=== PATIENT | male | born 1985 | race Caucasian/White ===

== ENCOUNTER 2017-12-06 22:33 | Inpatient (IN) | payer OTHER, MEDICAID, SELFPAY ==
[2017-12-06 22:41] VITALS: BP 115/88; PULSE 98; RESP 18; TEMP 36.7; O2SAT 100
--- NOTE | 2017-12-06 22:41 | ED_ITS ---
HPI - Extremity Injury (Lower) General Chief Complaint: Extremity Problem,Nontraumatic Stated Complaint: Knee pain Time Seen by Provider: 12/06/17 22:41 Source: patient Mode of arrival: EMS Limitations: no limitations History of Present Illness HPI Narrative: Patient is a 32-year-old male here for evaluation of right knee pain and swelling. Patient states that it started shortly after waking up this morning is worsened throughout the day. States he has had this 1 time in the past however it went away on its own in a very short period of time and he never had it evaluated. Patient admits to IV drug use. He states the last time he injected himself was 4 hr prior to arrival here in the ER. He denied any trauma to his knee. No fevers. States that his knee is very painful to touch chin to move. Has not tried anything for prior to arrival. Related Data Home Medications Medication Instructions Recorded Confirmed No Known Home Medications 12/06/17 12/06/17 Allergies Allergy/AdvReac Type Severity Reaction Status Date / Time No Known Drug Allergies Allergy Verified 12/06/17 23:47 Review of Systems Constitutional Denies fever(s) and Denies headache(s) ENT Ears, Nose, Mouth, and Throat: Denies headache(s) Cardiovascular Denies chest pain and Denies dyspnea Respiratory Denies dyspnea Gastrointestinal Gastrointestinal: Denies abdominal pain, Denies nausea and Denies vomiting Musculoskeletal Denies myalgias, Reports arthralgias, Reports joint swelling, Reports limited range of motion and Denies muscle weakness Integumentary/Breasts Denies lesions and Denies rash Neurologic Denies headache(s) Hematologic/Lymphatic Denies easy bleeding and Denies easy bruising [facility] Medical History Drug abuse (Acute) Surgical History No pertinent past surgical history (Acute) Exam Initial Vital Signs Initial Vital Signs: Vital Signs Temperature 98.1 F 12/06/17 22:41 Pulse Rate 98 H 12/06/17 22:41 Respiratory Rate 18 12/06/17 22:41 Blood Pressure 115/88 12/06/17 22:41 Pulse Oximetry 100 12/06/17 22:41 Const General: cooperative, No comfortable (Uncomfortable appearing), well developed and well groomed Orientation: alert, awake and oriented x3 HENMT Head: normal to inspection and normocephalic Resp Effort & Inspection: normal respiratory effort Auscultation: clear to auscultation bilaterally Cardio Rate: regular rate Rhythm: regular rhythm Skin Rashes: no rashes Other: No redness around the right knee. Patient with multiple healing wounds in bilateral antecubital fossas with stitches from prior incision and drainage still in place. Neuro General: alert, awake and oriented x3 Sensory Exam: no sensory deficits noted Extrem General: capillary refill normal Right lower extremity: hip/thigh Details: normal to inspection, knee Details: tenderness, swelling and abnormal ROM Details: held in an abnormal fashion Details: in flexion, pain with active ROM during Details: in extension and in flexion, pain with passive ROM during Details: in extension and in flexion and unable to extend lower leg actively; no unusual warmth, lower leg Details: normal to inspection, ankle Details: normal to inspection and foot Details: normal capillary refill and normal to inspection Left lower extremity: normal to inspection Psych Appearance: grossly normal and well kempt Procedures Joint Aspiration Joint Asp./Inject. 1: Time Out Performed: Yes Side of body: right Joint Aspirated: knee Ultrasound Guidance: No Skin Prep: Povidone-Iodine1% Local Anesthetic: lidocaine 1% Amount of anesthesia used (mL): 5 Needle Size Used: 18G Fluid Obtained: turbid Total fluid obtained (mL): 90 Patient Tolerated Procedure: Well and No complications Complications: none Misc Procedure Name of Procedure: Removal of stitches Side (if applicable): left Location: Bilateral antecubital fossa Technique/Description of procedure performed: Removal of 2 stitches in the right AC, removal of 6 stitches the left AC Patient tolerated procedure: Well and No complications Complications: none Course Orders Ordered: ED Orders 12/06/17 22:42 XR knee RT 3V Stat 12/06/17 23:00 Basic Metabolic Panel Stat Blood Culture Stat C-Reactive Protein Quant Stat Complete Blood Count AUTO DIFF Stat Erythrocyte Sedimentation Rate Stat Lactate (Lactic Acid) Stat Procalcitonin Stat Uric Acid Stat 12/06/17 23:43 Body Fluid Culture Stat Cell Count w Diff Body Fluid Stat Crystals Body Fluid Stat 12/07/17 01:28 Consult to Orthopedic Surgery Routine Consult to Physician Routine Vancomycin HCl/Dextrose (Vancomycin) 1,000 mg in 200 mls @ 200 mls/hr IV NOW ONE Stop: 12/07/17 02:14 Ceftriaxone Sodium/Dextrose (Rocephin) 1 gm in 50 mls @ 100 mls/hr IV NOW ONE Stop: 12/07/17 01:44 Last Admin: 12/07/17 01:26 Dose: 100 mls/hr Sodium Chloride (Normal Saline 0.9%) 1,000 mls @ 125 mls/hr IV CONT JAYSON Morphine Sulfate (Morphine) 2 mg IV Q4HR PRN PRN Reason: Pain, Mild (1-3) Morphine Sulfate (Morphine) 4 mg IV NOW ONE Stop: 12/07/17 01:44 Ondansetron HCl (Zofran) 4 mg IV Q4HR PRN PRN Reason: Nausea And Vomiting Discontinued Medications Sodium Chloride (Normal Saline 0.9%) 1,000 mls @ 1,000 mls/hr IV BOLUS ONE Stop: 12/06/17 23:41 Last Admin: 12/06/17 23:49 Dose: 1,000 mls/hr Morphine Sulfate (Morphine) 4 mg IV NOW ONE Stop: 12/06/17 23:14 Last Admin: 12/06/17 23:48 Dose: 4 mg Vital Signs - 8 hr 12/06/17 22:41 12/07/17 00:48 Temperature 98.1 F Pulse Rate 98 H 92 H Respiratory Rate 18 16 Blood Pressure 115/88 Blood Pressure [Left Arm] 118/90 Pulse Oximetry 100 98 MDM - Extremity Injury (Lower) Lab Data Attestation: I reviewed the patient's lab results. Result diagrams: 12/06/17 23:00 12/06/17 23:00 Lab Results 12/06/17 12/06/17 12/06/17 Range/Units 23:00 23:00 23:00 WBC 11.8 H (4.5-11.0) X10^3/uL RBC 4.40 L (4.5-5.9) X10^6/uL Hgb 12.3 L (13.5-17.5) g/dL Hct 36.9 L (41-53) % MCV 83.9 (80-100) fL MCH 28.0 (26-34) PG MCHC 33.4 (30-36) % RDW 16.7 H (11.6-14.8) % Plt Count 338 (150-400) X10^3/uL Neut % (Auto) 75.8 H (50-75) % Lymph % (Auto) 9.9 L (25-40) % [place] % (Auto) 12.4 (3-14) % Eos % (Auto) 1.0 L (2-4) % Baso % (Auto) 0.9 (0-2) % Neut # (Auto) 9000 H (6898-7066) /uL ESR 48 H (0-15) MM/HR Sodium 139 (137-145) mmol/L Potassium 4.1 (3.4-5.1) mmol/L Chloride 98 (98-107) mmol/L Carbon Dioxide 30 (22-32) mmol/L BUN 19 (9-20) mg/dL Creatinine 0.90 (0.66-1.25) mg/dL Estimated GFR > 60.0 (>60) mL/min BUN/Creatinine Ratio 21.1 (6-22) Glucose 114 H (70-100) mg/dL Lactate (0.7-2.1) mmol/L Uric Acid (3.5-8.5) mg/dL Calcium 9.8 (8.4-10.2) mg/dL C-Reactive Protein (<1.0) mg/dL Procalcitonin 3.41 H (<0.5) ng/mL Fluid Color Fluid Appearance Fluid RBC /uL Fld Tot Nucleated Cell /uL Fluid Polynuclear WBCs % Fluid Mononuclear WBCs % Fluid Eosinophils Body Fluid Clot 12/06/17 12/06/17 12/06/17 Range/Units 23:00 23:00 23:00 WBC (4.5-11.0) X10^3/uL RBC (4.5-5.9) X10^6/uL Hgb (13.5-17.5) g/dL Hct (41-53) % MCV (80-100) fL MCH (26-34) PG MCHC (30-36) % RDW (11.6-14.8) % Plt Count (150-400) X10^3/uL Neut % (Auto) (50-75) % Lymph % (Auto) (25-40) % [place] % (Auto) (3-14) % Eos % (Auto) (2-4) % Baso % (Auto) (0-2) % Neut # (Auto) (9759-3004) /uL ESR (0-15) MM/HR Sodium (137-145) mmol/L Potassium (3.4-5.1) mmol/L Chloride (98-107) mmol/L Carbon Dioxide (22-32) mmol/L BUN (9-20) mg/dL Creatinine (0.66-1.25) mg/dL Estimated GFR (>60) mL/min BUN/Creatinine Ratio (6-22) Glucose (70-100) mg/dL Lactate 1.0 (0.7-2.1) mmol/L Uric Acid 6.8 (3.5-8.5) mg/dL Calcium (8.4-10.2) mg/dL C-Reactive Protein 7.0 H (<1.0) mg/dL Procalcitonin (<0.5) ng/mL Fluid Color Fluid Appearance Fluid RBC /uL Fld Tot Nucleated Cell /uL Fluid Polynuclear WBCs % Fluid Mononuclear WBCs % Fluid Eosinophils Body Fluid Clot 12/06/17 Range/Units 23:43 WBC (4.5-11.0) X10^3/uL RBC (4.5-5.9) X10^6/uL Hgb (13.5-17.5) g/dL Hct (41-53) % MCV (80-100) fL MCH (26-34) PG MCHC (30-36) % RDW (11.6-14.8) % Plt Count (150-400) X10^3/uL Neut % (Auto) (50-75) % Lymph % (Auto) (25-40) % [place] % (Auto) (3-14) % Eos % (Auto) (2-4) % Baso % (Auto) (0-2) % Neut # (Auto) (5737-9534) /uL ESR (0-15) MM/HR Sodium (137-145) mmol/L Potassium (3.4-5.1) mmol/L Chloride (98-107) mmol/L Carbon Dioxide (22-32) mmol/L BUN (9-20) mg/dL Creatinine (0.66-1.25) mg/dL Estimated GFR (>60) mL/min BUN/Creatinine Ratio (6-22) Glucose (70-100) mg/dL Lactate (0.7-2.1) mmol/L Uric Acid (3.5-8.5) mg/dL Calcium (8.4-10.2) mg/dL C-Reactive Protein (<1.0) mg/dL Procalcitonin (<0.5) ng/mL Fluid Color Light brown Fluid Appearance Turbid Fluid RBC 66969 /uL Fld Tot Nucleated Cell 351315 /uL Fluid Polynuclear WBCs 91 % Fluid Mononuclear WBCs 9 % Fluid Eosinophils Not Reportable Body Fluid Clot No clots present Imaging Data x-ray knee: Attestation: I personally reviewed and interpreted this imaging study as follows: My impression: No fractures, no dislocation, no acute pathology MDM Narrative Medical decision making narrative: Went over the risks and benefits of the knee aspiration with the patient to include risks of pain, damage to underlying structures and also the introduction of an infection in his knee. Patient expressed understanding and gave consent for performing the procedure. Patient elevated white count, elevated ESR, CRP, procalcitonin. Synovial fluid with greater than 120,000 white blood cells with poly predominance. Patient is afebrile. Was given multiple doses of pain medication. Rocephin and vancomycin started here in the emergency department to cover for septic arthritis. No fractures were noted on the x-ray. Discussed the case with Dr. Gagnon with Orthopedics who stated the patient could be admitted under the medicine service with IV antibiotics and they will see the patient tomorrow. Discussed the case with Dr. Bruno with Internal Medicine who accepts the patient. Discussed the plan for admission with the patient. He expressed understanding and agreement with plan. Blood culture, joint synovial fluid culture pending at the time of admission. Discharge Plan Departure Patient Disposition: Admitted as Observation Clinical Impression: Septic joint of right knee joint, Drug abuse, IV Admit Date/Time: 12/07/17 01:34 Admit Provider: Cy Bruno
--- NOTE | 2017-12-06 22:42 | DI.RAD.S_ITS ---
PROCEDURE: XR KNEE RT 3V INDICATIONS: pain and swelling TECHNIQUE: 3 views of the knee were acquired. COMPARISON: None. FINDINGS: Bones: No fractures or dislocations. No suspicious bony lesions. Soft tissues: Anterior soft tissue swelling and large joint effusion IMPRESSION: Anterior soft tissue swelling and large joint effusion. No fracture. If the patient's symptoms do not improve recommend further evaluation with noncontrast MRI. Dictated by: Farzad Cornell M.D. on 12/07/2017 at 7:33 Approved by: Farzad Cornell M.D. on 12/07/2017 at 7:34
[2017-12-06 23:23] LABS: Add Manual Diff / Slide Review NO; Basophils Percent Auto 0.9 % (0-2); Hematocrit 36.9 % (41-53); Hemoglobin 12.3 g/dL (13.5-17.5); Lymphocytes Percent Auto 9.9 % (25-40); Mean Corpuscular HGB Conc 33.4 % (30-36); Mean Corpuscular Volume 83.9 fL (80-100); Monocytes Percent Auto 12.4 % (3-14); Neutrophils Absolute Auto 9000 /uL (3000-5900); Neutrophils Percent Auto 75.8 % (50-75); Platelet Count 338 X10^3/uL (150-400); Red Cell Distribution Width 16.7 % (11.6-14.8); White Blood Cell Count 11.8 X10^3/uL (4.5-11.0)
--- NOTE | 2017-12-06 23:30 | PC.NURSE ---
rt knee swelling, hot to touch, no redness/wound/trauma, denies nausea/fever/chills, reports IVDA heroin last use approx 4 hours per pt distal cms intact
[2017-12-06 23:37] LABS: Uric Acid 6.8 mg/dL (3.5-8.5)
[2017-12-06 23:38] LABS: BUN Creatinine Ratio 21.1 (6-22); Blood Urea Nitrogen 19 mg/dL (9-20); Calcium 9.8 mg/dL (8.4-10.2); Carbon Dioxide 30 mmol/L (22-32); Chloride 98 mmol/L (98-107); Estimated Glomerular Filt Rate > 60.0 mL/min (>60); Glucose 114 mg/dL (70-100); HEMOLYSIS < 15 (0-50); Potassium 4.1 mmol/L (3.4-5.1); Sodium 139 mmol/L (137-145)
[2017-12-06 23:40] LABS: Erythrocyte Sedimentation Rate 48 MM/HR (0-15)
[2017-12-06] MEDS: MORPHINE 4 MG/ML INJ IV (23:48)
[2017-12-06] MEDS: SODIUM CHLORIDE 0.9% 1,000 ML 1000 ML IV (23:49)
[2017-12-06 23:51] LABS: Procalcitonin 3.41 ng/mL (<0.5)
[2017-12-07] VITALS (15 sets, daily range): BP systolic 115–145; BP diastolic 49–92; PULSE 62–92; RESP 14–73; TEMP 36.3–37.2; O2SAT 20–100; BMI 22.8
--- NOTE | 2017-12-07 | DI.ECHO.S_ITS ---
[place] [facility]---------+ [facility] +---------+ : : [address] : : : : [id number] : : : : Phone: [phone] Echocardiogram Report + + :Name: IFEOMA SON Study Date: 12/07/2017 Height: 70 in : :[facility] Exam Location: IS Weight: 158 lb : : Gender: Male BSA: 1.9 m2 : :: 1985 Age: 32 yrs BP: 130/74 mmHg: :Reason For Study: ENDOCARDITIS : :Ordering Physician: Jean : :Hospitalist Performed By: Kathryn Herrera : :Referring: BENNETT OLGUIN : + + Interpretation Summary Limited exam for endocarditis. Pt asked exam to be ended early. Only parasternal views were obtained. Pt had a difficult time holding still and was taking deep breaths throughout exam. The left ventricular ejection fraction is normal. There are no obvious focal wall motion abnormalities noted but poor endocardial definition reduces the sensitivity for the detection of such. There is trace mitral regurgitation. At least trace AI. Consider [place] if clinically indicated Procedure: A two-dimensional transthoracic echocardiogram with color flow and Doppler was performed in limited views only. The study quality was technically adequate. Comparison is made with the echocardiogram of 10/19/17. The patient was in normal sinus rhythm during the exam. Left Ventricle: The left ventricle is normal in size. There is normal left ventricular wall thickness. The left ventricular ejection fraction is normal. The ejection fraction is estimated to be 55-60%. There are no obvious focal wall motion abnormalities noted but poor endocardial definition reduces the sensitivity for the detection of such. Mitral Valve: The mitral valve leaflets appear mildly thickened, but open well. There is no vegetation seen on the mitral valve. There is trace mitral regurgitation. Aortic Valve: The aortic valve is normal in structure and function. There is no aortic valvular vegetation. At least trace AI. Tricuspid Valve: The tricuspid valve is not well visualized, but is grossly normal. No obvious vegetation. There is a trace or physiologic amount of tricuspid regurgitation. Right ventricular systolic pressure is estimated to be at least 14 mmHg plus the clinically estimated CVP which cannot be estimated on this exam. Pulmonic Valve: The pulmonic valve is not well visualized. MMode/2D Measurements & Calculations LVIDd: 4.5 cm LVIDs: 3.0 cm FS: 33.1 % IVSd: 0.64 cm LVPWd: 0.69 cm LV taylor. diameter/BSA (cm/m^2): 2.4 LV sys. diameter/BSA (cm/m^2): 1.6 Doppler Measurements & Calculations TR max paz: 187.2 cm/sec TR max P.0 mmHg Reading Physician:03:34 PM
[2017-12-07 00:10] LABS: Body Fluid Red Blood Cells 10346 /uL; Body Fluid Tot Nucleated Cells 121142 /uL
[2017-12-07 00:12] LABS: Body Fluid Appearance TURBID; Body Fluid Clotted? NO CLOTS PRESENT; Body Fluid Color LIGHT BROWN
[2017-12-07 01:06] LABS: Mononuclear WBC Body Fluid 9 %; Polynuclear WBC Body Fluid 91 %
[2017-12-07] MEDS: CEFTRIAXONE 1 GM/50 ML FROZ.PIGGY IV (01:26)
[2017-12-07] MEDS: MORPHINE 4 MG/ML INJ IV ×5 (01:46→21:46)
[2017-12-07] MEDS: SODIUM CHLORIDE 0.9% 1,000 ML 125 ML IV ×2 (01:47→10:58)
[2017-12-07] MEDS: VANCOMYCIN 1,000 MG/200 ML FROZ.PIGGY 200 MG IV ×4 (01:59→20:58)
--- NOTE | 2017-12-07 02:45 | PC.NURSE ---
Admit Note: Pt arrived to 229 at 0215 via stretcher, he was able to shift onto the bed with 1pa to support the effected knee. Pt reported pain at 8/10, iv fluids running as ordered. Pt drowsy during assessment and had to be prompted frequently to answer questions. Knee is elevated on pillow, band aid is on the knee at the aspiration site. 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 Pt stated that he smokes 4 cigarettes per day and that he lives alone. Pt was oriented to room, call light and bed controls but may need reinforcement due to drowsiness.
[2017-12-07] MEDS: MORPHINE 2 MG/ML INJ IV (06:06)
--- NOTE | 2017-12-07 08:26 | PM.HP.1 ---
History of Present Illness Date Patient Seen: 12/07/17 Chief complaint: Knee pain Narrative: The patient is a 32-year-old male with a history of IV substance abuse. The patient admits to using up to a g a day of heroin. Yesterday 1 day prior to admission he developed knee pain. The knee pain was constant, sharp, nonradiating. He had associated swelling of the right knee. The knee hurt with ambulation. He denies any associated fever or chills. He had no nausea or vomiting. He has had prior injury to the knee. Patient has had no prior history of septic joints or infections related to his IV substance abuse. The patient was seen and evaluated in the emergency department. He underwent a aspiration of the knee. The knee aspirate was significant for over 121,000 white cells, 91% neutrophils. Patient was placed on IV ceftriaxone and IV vancomycin. He was given IV hydration. He was admitted to the hospital for further evaluation. The patient denies any shortness of breath chest pain or palpitations. He has no nausea vomiting or diarrhea. No dysuria hematuria or pyuria. He has no headache blurred vision cough. He has had no change in his weight. The patient has no hematemesis or melena or bright red blood per rectum. All other review of systems is negative. Patient is being admitted to the hospital at this time for possible septic arthritis of the right knee. Patient History Medical History Drug abuse (Acute) Opioid abuse (Acute) Opioid abuse with intoxication delirium (Acute) Opioid dependence with withdrawal (Acute) Opioid use with withdrawal (Acute) Surgical History No pertinent past surgical history (Acute) Family & Social History Family History: Reviewed 12/07/17 by Tamika Porter MD Social History: household members none Prior Living Arrangements Apartment/Condo Safety & Behavioral: Feels Safe in Current Yes Environment Been Physically Hurt or No Threatened By a Person Suicidal Ideation Description None Tobacco & Substance use: Tobacco type cigarettes Smoking Status Current every day smoker alcohol intake never Substance Use Type heroin Meds Home Medications Medication Instructions Recorded Confirmed Type No Known Home Medications 12/06/17 12/06/17 History Allergies Allergy/AdvReac Type Severity Reaction Status Date / Time No Known Drug Allergies Allergy Verified 12/06/17 23:47 Review of Systems Review of Systems All systems reviewed & are unremarkable except as noted in HPI and below Exam Vital Signs (past 8 hours): - 12/07/17 00:48 12/07/17 02:25 12/07/17 06:27 Temperature 99.0 F 98.3 F Pulse Rate 92 H 79 77 Respiratory Rate 16 18 18 Blood Pressure 130/74 139/87 Blood Pressure [Left Arm] 118/90 Pulse Oximetry 98 100 100 Oxygen Delivery Method Room Air Narrative Exam Narrative: Uncomfortable white male moaning in bed [facility] Head: normal to inspection, normocephalic and atraumatic Ears: hearing grossly normal bilaterally Nose: external nose normal Face and sinus: normal facial exam Mouth: oral mucosae normal Eyes General: appearance normal, both eyes and all related structures Eyelids: eyelids normal Conjunctivae: conjunctivae normal Sclera: sclerae normal Pupils: PERRL Neck Neck: normal visual inspection Thyroid: thyroid normal Carotids: normal carotid upstroke Resp Effort & Inspection: normal respiratory effort and able to speak in complete sentences Cardio Palpation: normal PMI Rate: regular rate Rhythm: regular rhythm Heart Sounds: S1 normal, S2 normal and murmur (2/6) systolic GI Inspection: normal to inspection Palpation: soft and no hepatosplenomegaly Percussion: normal to percussion Auscultation: normal bowel sounds and normoactive bowel sounds Back/Spine/Pelvis Back: normal to inspection Thoracic/Lumbar Spine: thoracic and lumbar spine normal to inspection Skin General: no rashes or lesions noted and fluctuance Lesions: no lesions Rashes: no rashes Other: Right knee is swollen tender to palpation. There is obvious fluctuance and fluid present. Neuro Cranial Nerves: CN's II-XI intact bilaterally Cognition: normal cognition Speech: speech normal Motor: muscle tone normal throughout Sensory Exam: no sensory deficits noted Psych Other: Patient is somewhat agitated and writhing in bed. Feels like he is withdrawing. Objective Labs Result Diagrams: 12/06/17 23:00 12/06/17 23:00 Labs: Laboratory Results - last 24 hr 12/06/17 12/06/17 12/06/17 23:00 23:00 23:00 WBC 11.8 H RBC 4.40 L Hgb 12.3 L Hct 36.9 L MCV 83.9 MCH 28.0 MCHC 33.4 RDW 16.7 H Plt Count 338 Neut % (Auto) 75.8 H Lymph % (Auto) 9.9 L Logan % (Auto) 12.4 Eos % (Auto) 1.0 L Baso % (Auto) 0.9 Neut # (Auto) 9000 H ESR 48 H Sodium 139 Potassium 4.1 Chloride 98 Carbon Dioxide 30 BUN 19 Creatinine 0.90 Estimated GFR > 60.0 BUN/Creatinine Ratio 21.1 Glucose 114 H Lactate Uric Acid Calcium 9.8 C-Reactive Protein Procalcitonin 3.41 H Fluid Color Fluid Appearance Fluid RBC Fld Tot Nucleated Cell Fluid Polynuclear WBCs Fluid Mononuclear WBCs Fluid Eosinophils Body Fluid Clot 12/06/17 12/06/17 12/06/17 23:00 23:00 23:00 WBC RBC Hgb Hct MCV MCH MCHC RDW Plt Count Neut % (Auto) Lymph % (Auto) Logan % (Auto) Eos % (Auto) Baso % (Auto) Neut # (Auto) ESR Sodium Potassium Chloride Carbon Dioxide BUN Creatinine Estimated GFR BUN/Creatinine Ratio Glucose Lactate 1.0 Uric Acid 6.8 Calcium C-Reactive Protein 7.0 H Procalcitonin Fluid Color Fluid Appearance Fluid RBC Fld Tot Nucleated Cell Fluid Polynuclear WBCs Fluid Mononuclear WBCs Fluid Eosinophils Body Fluid Clot 12/06/17 23:43 WBC RBC Hgb Hct MCV MCH MCHC RDW Plt Count Neut % (Auto) Lymph % (Auto) Logan % (Auto) Eos % (Auto) Baso % (Auto) Neut # (Auto) ESR Sodium Potassium Chloride Carbon Dioxide BUN Creatinine Estimated GFR BUN/Creatinine Ratio Glucose Lactate Uric Acid Calcium C-Reactive Protein Procalcitonin Fluid Color Light brown Fluid Appearance Turbid Fluid RBC 22742 Fld Tot Nucleated Cell 806205 Fluid Polynuclear WBCs 91 Fluid Mononuclear WBCs 9 Fluid Eosinophils Not Reportable Body Fluid Clot No clots present Assessment & Plan (1) Opioid use with withdrawal: Problem details: Patient will be started on methadone 30 mg twice daily while in the hospital to address his opioid withdrawal Current visit: Yes Status: Acute (2) Septic joint of right knee joint: Problem details: Orthopedic consultation has been obtained. Suspect the patient will need to be taken to the operating room for definitive arthroscopic the and washout Will continue IV antibiotics with ceftriaxone and vancomycin awaiting definitive culture results. Patient will receive IV morphine for pain control. Qualifiers: Septic arthritis organism: due to unspecified organism Qualified Code(s): M00.9 - Pyogenic arthritis, unspecified Current visit: Yes Status: Acute (3) Drug abuse, IV: Problem details: On methadone Current visit: Yes Status: Acute Plan: Assessment/Plan Narrative: Patient is NPO awaiting orthopedic consultation. He will start on DVT prophylaxis tomorrow. Recommend social work consult for possible referral to treatment for drug rehab.
--- NOTE | 2017-12-07 08:27 | PM.CN ---
History of Present Illness Date Patient Seen: 12/07/17 Time Patient Seen: 08:00 Chief complaint: Knee pain Reason for consult: Right knee pain Narrative: 32-year-old gentleman admitted this morning for right knee pain and swelling. Patient states that yesterday he started to notice some pain and swelling to the right knee. Patient has a history of IV drug use. Patient is actively using. Patient states he has had an episode of knee swelling in the past but it did go away on its own. Patient was hoping that this would do the same but as the day went on, the knee became more and more painful and swollen. Patient eventually presented to the emergency room where he was admitted due to concerns of an infection to his right knee. Patient denies any other joint issues. States it is only the right knee that has been giving him problems. [facility] Family History: Reviewed 12/07/17 by Tamika Porter MD Social History household members: none Smoking Status: Current every day smoker alcohol intake: never Meds Home Medications Medication Instructions Recorded Confirmed Type No Known Home Medications 12/06/17 12/06/17 History Allergies Allergy/AdvReac Type Severity Reaction Status Date / Time No Known Drug Allergies Allergy Verified 12/06/17 23:47 Review of Systems Review of Systems All systems reviewed & are unremarkable except as noted in HPI and below Exam Vital Signs (past 8 hours): - 12/07/17 00:48 12/07/17 02:25 12/07/17 06:27 Temperature 99.0 F 98.3 F Pulse Rate 92 H 79 77 Respiratory Rate 16 18 18 Blood Pressure 130/74 139/87 Blood Pressure [Left Arm] 118/90 Pulse Oximetry 98 100 100 Oxygen Delivery Method Room Air Narrative Exam Narrative: On physical exam, patient has swelling to the right knee. Left knee is uninvolved. Pain with both active and passive flexion and extension of the knee. No pain with dorsiflexion and plantar flexion of bilateral ankles or toes. No pain with range of motion of the hips bilaterally. Patient has also asymptomatic to bilateral upper extremities. No pain with range of motion of bilateral shoulders, elbow, wrist, and fingers. He has no sign of any swelling to bilateral upper extremities as well as the left lower extremity. Signs of obvious fluid to the right knee. But no significant erythema or cellulitis. Compartments are soft throughout. Objective Labs Result Diagrams: 12/06/17 23:00 12/06/17 23:00 Labs: Laboratory Results - last 24 hr 12/06/17 12/06/17 12/06/17 23:00 23:00 23:00 WBC 11.8 H RBC 4.40 L Hgb 12.3 L Hct 36.9 L MCV 83.9 MCH 28.0 MCHC 33.4 RDW 16.7 H Plt Count 338 Neut % (Auto) 75.8 H Lymph % (Auto) 9.9 L [place] % (Auto) 12.4 Eos % (Auto) 1.0 L Baso % (Auto) 0.9 Neut # (Auto) 9000 H ESR 48 H Sodium 139 Potassium 4.1 Chloride 98 Carbon Dioxide 30 BUN 19 Creatinine 0.90 Estimated GFR > 60.0 BUN/Creatinine Ratio 21.1 Glucose 114 H Lactate Uric Acid Calcium 9.8 C-Reactive Protein Procalcitonin 3.41 H Fluid Color Fluid Appearance Fluid RBC Fld Tot Nucleated Cell Fluid Polynuclear WBCs Fluid Mononuclear WBCs Fluid Eosinophils Body Fluid Clot 12/06/17 12/06/17 12/06/17 23:00 23:00 23:00 WBC RBC Hgb Hct MCV MCH MCHC RDW Plt Count Neut % (Auto) Lymph % (Auto) [place] % (Auto) Eos % (Auto) Baso % (Auto) Neut # (Auto) ESR Sodium Potassium Chloride Carbon Dioxide BUN Creatinine Estimated GFR BUN/Creatinine Ratio Glucose Lactate 1.0 Uric Acid 6.8 Calcium C-Reactive Protein 7.0 H Procalcitonin Fluid Color Fluid Appearance Fluid RBC Fld Tot Nucleated Cell Fluid Polynuclear WBCs Fluid Mononuclear WBCs Fluid Eosinophils Body Fluid Clot 12/06/17 23:43 WBC RBC Hgb Hct MCV MCH MCHC RDW Plt Count Neut % (Auto) Lymph % (Auto) [place] % (Auto) Eos % (Auto) Baso % (Auto) Neut # (Auto) ESR Sodium Potassium Chloride Carbon Dioxide BUN Creatinine Estimated GFR BUN/Creatinine Ratio Glucose Lactate Uric Acid Calcium C-Reactive Protein Procalcitonin Fluid Color Light brown Fluid Appearance Turbid Fluid RBC 40948 Fld Tot Nucleated Cell [id number] Fluid Polynuclear WBCs 91 Fluid Mononuclear WBCs 9 Fluid Eosinophils Not Reportable Body Fluid Clot No clots present Assessment & Plan Plan: Assessment/Plan Narrative: Patient was signs concerning for a possible septic knee. Discussed patient's diagnosis and treatment options. The plan will be history an irrigation and debridement of the right knee. Patient will be made NPO. All of his questions and concerns were answered to his full satisfaction. Went over the risks and limitations associated with the procedure as well as possible need for repeat surgery to wash out the knee more than once. All of his questions and concerns were answered to his full satisfaction.
[2017-12-07] MEDS: METHADONE 10 MG TABLET 30 MG PO ×2 (08:42→21:36)
[2017-12-07] MEDS: ENOXAPARIN 40 MG/0.4 ML SYRINGE SUBCUT (08:42)
[2017-12-07] MEDS: ONDANSETRON 4 MG/2 ML INJ IV (08:42)
[2017-12-07] MEDS: CEFTRIAXONE 2 GM/50 ML FROZ.PIGGY IV (08:42)
--- NOTE | 2017-12-07 14:11 | CM.IDA ---
DCP Assessment Note: Pt is a 32 yo male, resident of [place]. Pt admitted today for septic knee joint, active heroin user, requiring IV abx and washout/I+D. Pt's PCP is not listed, Insurance is [employer]. Pt going for his I+D today w/ Dr Gagnon. Culture results are pending. Pt is on methadone for opiod use w/d. Attempted to meet w/pt today, ARLINE Asencio explained pt has been in active w/d today and staff allowing him to sleep. This SALES DEVELOPMENT SPECIALIST following closely and will attempt assessment tomorrow. ARSH Parkinson Discharge Planning/Care Management CM Discharge Assessment Start: 12/07/17 14:03 Freq: Status: Active Protocol: Document 12/07/17 14:04 AYSHA (Rec: 12/07/17 14:11 AYSHA [id number]) Discharge Planning Assessment Assigned Natural Resources Specialist ARSH Morales DPOA/Assigned Designee Name Michele Perez, family Contact Information [phone] Advance Directives? No History Provided By Patient Prior Living Arrangements Apartment/Condo Household Members none Type of transporation used prior to Drives own vehicle admit Independent with ADL's Yes Is patient alert and oriented? Yes Comment Active Heroin user Barriers to Discharge No Comment Likely home, resources will be offered for active heroin use ; other substances (?) R/o need for IV abx. DC w/ PICC is not a safe plan. Discharge Plan Home Additional Comment Referrals pending further assessment. Review Status In Process Please Provide Date Initial DC 12/07/17 Assessment Was Performed
[2017-12-07] MEDS: LACTATED RINGERS 1,000 ML 42 ML IV ×2 (18:00→20:57)
--- NOTE | 2017-12-07 18:55 | SUR.HOLD ---
Dr. Spivey notified pt having pain, ok to give morphine per orders. Pt medicated with 4mg Morphine, unable to scan due to vial dose.
[2017-12-07] MEDS: BUPIVACAINE 0.5% W/ EPI (PF) VIAL 30 ML INJ (19:45)
--- NOTE | 2017-12-07 20:14 | PM.OP.1 ---
Operative Date/Time/Diagnoses Date of procedure: 12/07/17 Time of procedure: 19:19 Pre-op diagnosis: Right septic knee Post-op diagnosis: same Procedure & Clinicians Procedure: Arthrotomy of right knee with irrigation and debridement Same procedure as scheduled: Yes Indications: Right septic knee Surgeon: Hansel Gagnon Click Yes if Unassisted: Yes Anesthesia Type: General Operative Notes Findings: Large hematoma to the knee. As well as clotted blood. Slight cloudy appearance but no sign of any significant purulence. Closure Type: primary Specimen(s): other Applied: drain(s) Estimated Blood Loss (mL): 10 Blood products transfused: none Procedure in detail: On date of service, patient was met in the holding area where his operative site was signed and witnessed by the OR staff. Surgery was once again discussed with the patient in remaining questions concerns he had were answered fully. Patient was taken back to the operating theater placed on the operating table in a supine position. Great care was taken to ensure that all bony prominences were appropriately padded. No tourniquet was used. Time-out was performed verifying patient's name procedure and operative site. Right leg was prepped and draped in the normal sterile fashion. We started off by aspirating the knee. We tone out about 20 cc of fluid that was rather bloody with some cloudiness. This was sent to microbiology. Next, 10 blade was used to make a incision to the superior lateral aspect of the knee. This soon as this was done and then knife was used to cut the capsule, quite a bit of fluid poured out of the knee. Similar appearance to it we aspirated. This was followed by clotted blood. No sign of any significant purulence. Hemostat was placed to open up the knee joint. It 2nd incision was made on the medial aspect of the knee. Swabs were taken and sent to microbiology. Next, pulse lavage was placed in the lateral portal and 4 L of saline was irrigated through the knee. Very quickly the fluid coming out of the medial portal was clear and no longer bloody or cloudy. This was continued until all 4 L were complete pleat we irrigated through the knee. Next, [place] drain was placed through both the medial and lateral portals. The medial lateral portals were partly closed. The knee was then cleaned dried and dressed. Patient was taken to the PACU in stable condition. Complications: none Condition: stable Disposition: Acute Care Plan for aftercare: Drain can be removed in 48 hr. Patient has cultures that will need to be checked as well. Nonweightbearing to the right lower extremity.
--- NOTE | 2017-12-07 20:29 | SUR.PHASEI ---
airway in on arrival , d/c'ed w/o any difficulty. drinking juice no complaints, report called. pt transfered back to room.
--- NOTE | 2017-12-07 21:35 | PC.NURSE ---
wound culture order put in wrong by OR nurse. This RN put in correct order per VTO by Chyna AVILA. This RN had to uncollected it but Neda Alfred RN, OR nurse is the person that actually collected the specimen.
[2017-12-07] MEDS: ACETAMINOPHEN 325 MG TABLET 975 MG PO ×2 (21:36→22:38)
[2017-12-07] MEDS: DOCUSATE 100 MG CAPSULE PO (21:36)
[2017-12-08] VITALS (9 sets, daily range): BP systolic 115–131; BP diastolic 63–93; PULSE 71–98; RESP 16–20; TEMP 36.3–37.1; O2SAT 95–100
[2017-12-08] MEDS: VANCOMYCIN 1,000 MG/200 ML FROZ.PIGGY 200 MG IV ×2 (04:02→12:03)
[2017-12-08] MEDS: OXYCODONE IR 10 MG TABLET PO (06:16)
[2017-12-08 06:48] LABS: Hematocrit 36.3 % (41-53); Hemoglobin 12.1 g/dL (13.5-17.5); Mean Corpuscular HGB Conc 33.4 % (30-36); Mean Corpuscular Hemoglobin 28.2 PG (26-34); Mean Corpuscular Volume 84.3 fL (80-100); Platelet Count 320 X10^3/uL (150-400); Red Blood Cell Count 4.31 X10^6/uL (4.5-5.9); Red Cell Distribution Width 16.6 % (11.6-14.8); White Blood Cell Count 9.4 X10^3/uL (4.5-11.0)
[2017-12-08] MEDS: CEFTRIAXONE 2 GM/50 ML FROZ.PIGGY IV (09:04)
[2017-12-08] MEDS: ACETAMINOPHEN 325 MG TABLET 975 MG PO ×2 (09:05→14:17)
[2017-12-08] MEDS: METHADONE 10 MG TABLET 30 MG PO ×2 (09:05→19:50)
[2017-12-08] MEDS: DOCUSATE 100 MG CAPSULE PO ×2 (09:05→20:08)
[2017-12-08] MEDS: ENOXAPARIN 40 MG/0.4 ML SYRINGE SUBCUT (09:06)
--- NOTE | 2017-12-08 10:02 | RT ---
Patient reinstructed and encouraged to use IS ervery hour while awake 8-10 times with coughing. Volumes initally small but climbing to [id number] with encouragement. Cough dry nonprod.
--- NOTE | 2017-12-08 10:34 | PT.IIE ---
Current Diagnoses Opioid use, unspecified with withdrawal (12/07/17) Other psychoactive substance abuse, uncomplicated (12/07/17) Pyogenic arthritis, unspecified (12/07/17) Surgery Performed Operation Date: 12/07/17 19:00 Actual Procedures p Incision and Drainage Knee with lavage irrigation(Right) - Hansel Gagnon MD Surgical History (Last Reviewed 12/07/17 @ 08:29 by Hansel Gagnon MD) No pertinent past surgical history (Acute) Medical History (Last Updated 12/07/17 @ 08:29 by Tamika Porter MD) Drug abuse (Acute) Opioid abuse (Acute) Opioid abuse with intoxication delirium (Acute) Opioid dependence with withdrawal (Acute) Opioid use with withdrawal (Acute) Physical Therapy Inpatient Evaluation/Re-Eval M1 PT/OT-IP Prior Functional Status Start: 12/08/17 12:06 Freq: NEEDED Status: Active Protocol: Document 12/08/17 10:34 AB (Rec: 12/08/17 12:54 [id number]) Medical Review Prior Functional Status Medical History Reviewed Yes Communication able to make needs known Mobility and Gait pt stated that he is independent with all mobilities and ambulation without AD Social History Household Members none Living Arrangements Homeless M2 PT-IP Current Condition Start: 12/08/17 12:06 Freq: NEEDED Status: Active Protocol: Document 12/08/17 10:34 AB (Rec: 12/08/17 12:54 [id number]) Physical Therapy Current Condition Current Condition Evaluation Date 12/08/17 Treatment Diagnosis R septic knee s/p I&D Onset Date 12/07/17 Precautions Other Precautions contact precautions R knee sepsis h/o IV drug use Weight Bearing Status Weight Bearing Status Non-Weight Bearing Allowed Weight Bearing Amount (enter % NWB RLE or #) (%) M3 PT-IP Subjective Start: 12/08/17 12:06 Freq: NEEDED Status: Active Protocol: Document 12/08/17 10:34 AB (Rec: 12/08/17 12:54 [id number]) Subjective Physical Therapy Visit Type Type Initial Evaluation Visit Start Time 10:34 Visit Stop Time 11:45 Total Visit Minutes 45 Notes pt seen for split tx Number of LACE MENDER Visits 0 Physical Therapy Visit Comments Patient Comments pt agreeable to do PT Patient Goals pt stated that the plan is for him to go back to [place] where his mom and uncle lives Therapy Pain Assessment Pain When Pain Assessed At Rest Pain Present Pain Present Pain Reported Location Right Knee Intensity 5 Scale Used Numeric (1 - 10) Pain Management Techniques Re-positioning Timing of Activity with Medications M4 PT-IP Mobility and Gait Start: 12/08/17 12:06 Freq: NEEDED Status: Active Protocol: Document 12/08/17 10:34 AB (Rec: 12/08/17 12:54 AB [id number]) PT-Bed Mobility Assessment Supine to Sit Supine to Sit Standby Assistance Sit to Supine Sit to Supine Standby Assistance Scooting Scooting to Edge of Bed Standby Assistance Scooting Up and Down in Bed Standby Assistance PT-Transfer Assessment Sit to and From Stand Sit to and from Stand Standby Assistance Use of Upper Extremities Equipment Transfer Assistive Device Gait Belt Front Wheeled Walker Orthotic/Prosthetic Devices or Brace: No Transfers Transfer Destination Chair Transfer Technique pt ambulated first and sat on the chair Gait Assessment Gait Gait Assistance Required: Contact Guard Assist Distance (Feet) 40 Able to Maintain Weight Bearing Status Yes During Gait Assistive Devices Assistive Device Gait Belt Front Wheeled Walker Axillary Crutches Orthotic/Prosthetic Devices or Brace: No Factors Limiting Gait Function Factors Limiting Gait Function Decreased Activity Tolerance Decreased Strength Limited Range of Motion Pain Poor Balance Comments Gait Comments assessed safety with ambulation using FWW and pt required SBA. assess safety with use of bilateral axillary crutches and pt completed with CGA and cues. presented with slight unsteadiness with turns requiring CGA and cues for techniques and safety. PT-Balance Assessment Sitting Balance and Reactions Static Sitting Balance Ability Good Dynamic Sitting Balance Ability Good Standing Balance and Reactions Static Standing Balance Ability Fair Dynamic Standing Balance Ability Fair Device Used FWW/crutches M5 PT-IP Objective Assessments Start: 12/08/17 12:06 Freq: NEEDED Status: Active Protocol: Document 12/08/17 10:34 AB (Rec: 12/08/17 12:54 AB [id number]) Orientation Orientation/Cognition Level of Alertness Alert Orientation Name Age Birthday Month Date Year Day of Week Place Situation Gross Range of Motion Lower Extremity ROM Assessment Right Impaired Impairments decrease R knee flexion with increrase tightness/muscle guarding with PROM Strength Lower Extremity Strength Assessment Right Impaired Knee 3-/5 M6 PT-IP Treatment Start: 12/08/17 12:06 Freq: NEEDED Status: Active Protocol: Document 12/08/17 10:34 AB (Rec: 12/08/17 12:54 AB [id number]) Physical Therapy Treatment Education Education Provided Precautions Weight Bearing Status Safety M7 PT-IP Assessment and Plan Start: 12/08/17 12:06 Freq: NEEDED Status: Active Protocol: Document 12/08/17 10:34 AB (Rec: 12/08/17 12:54 AB [id number]) PT Summary Assessment and Plan Potential Rehabilitation Potential Good Status of Condition at Evaluation Evolving Summary Impairments Pain ROM Strength Balance Bed Mobility Transfers Gait Activity Tolerance Assessment Summary pt requiring SBA to CGA with mobility and ambulation using bilateral crutches. pt will likely progress with mobility but is currently NWB limiting functional mobility. will continue to assess. pt plans to fly back to [place] where his family lives. Goals Bed Mobility Goal Independent Transfer Goal Independent Gait Goal Independent Gait Distance 200 Other Goals up/down 6 steps using bilateral crutches SBA Days to Meet Goals 3 Frequency of Treatment Frequency Of Treatment Once a Day Treatment Plan Physical Therapy Treatment Plan Bed Mobility Training Transfer Training Gait Training Therapeutic Exercise Balance Retraining Post Op Education Discharge Planning Hot or Cold Pack Neuromuscular Re-ed Recommendations To Nursing Amount of Assist Needed 1 Person Assist Discharge Recommendations PT Discharge Recommendations Home with Assistance Outpatient PT Equipment Needed for Home Before bilateral axillary crutches Discharge
--- NOTE | 2017-12-08 11:42 | P.PN_ITS ---
Subjective Date Patient Seen: 12/08/17 Time Patient Seen: 11:42 Interval history: POD #1 status post right knee I+D done arthroscopically by Dr. Gagnon. Patient is not having any pain. He is nonweightbearing on the right with physical therapy. Denies fevers or chills. Exam Vital Signs (past 8 hours): - 12/08/17 04:00 12/08/17 08:40 12/08/17 09:16 Temperature 98.2 F 98.8 F Pulse Rate 94 H 71 Respiratory Rate 18 18 Blood Pressure 131/93 H 124/76 Pulse Oximetry 98 98 99 Oxygen Delivery Method Room Air Oxygen Flow Rate 0 Narrative Exam Narrative: Right knee is swollen. Dressing left in place with Alex wrap on. Calves are soft, compressible, nontender bilaterally. Sensation intact light touch throughout bilateral lower extremities. Pulses are symmetrical. Objective Labs Result Diagrams: 12/08/17 06:23 12/06/17 23:00 Labs: Laboratory Results - last 24 hr 12/08/17 12/08/17 06:23 09:30 WBC 9.4 RBC 4.31 L Hgb 12.1 L Hct 36.3 L MCV 84.3 MCH 28.2 MCHC 33.4 RDW 16.6 H Plt Count 320 Vancomycin Trough 11.0 Assessment & Plan Post-op (1) Septic joint of right knee joint: Problem details: Will continue IV antibiotics with ceftriaxone and vancomycin awaiting definitive culture results. Patient will receive IV morphine for pain control. Nonweightbearing on the right. Qualifiers: Septic arthritis organism: due to unspecified organism Qualified Code(s ): M00.9 - Pyogenic arthritis, unspecified Current Visit: Yes Status: Acute (2) Drug abuse, IV: Problem details: On methadone Current Visit: Yes Status: Acute Postoperative Procedures Operation Date: 12/07/17 19:00 Actual Procedures Side Surgeon p Incision and Drainage Knee with lavage irrigation Right Hansel Gagnon MD POD #1 s/p I+D of right knee with Dr. Gagnon. Continue IV antibiotics. Preliminary culture is Staph aureus. Will be nonweightbearing on the right. Keep drain in place for 48 hr. Continue to monitor knee for any redness or warmth. Patient will likely need dressing change later today or tomorrow.
[2017-12-08] MEDS: LINEZOLID 600 MG TABLET PO ×2 (14:17→19:52)
--- NOTE | 2017-12-08 14:48 | PM.PN.1 ---
Subjective Date Patient Seen: 12/08/17 Time Patient Seen: 12:56 Interval history: History of present illness Follow-up on patient was septic right knee and active IV heroin abuse prior to admission Review of system No chest pain or shortness of breath No nausea Patient notes right knee pain intermittently but certainly much improved compared to yesterday Exam Vital Signs (past 8 hours): - 12/08/17 08:40 12/08/17 09:16 12/08/17 12:42 Temperature 98.8 F 97.3 F L Pulse Rate 71 72 Respiratory Rate 18 16 Blood Pressure 124/76 116/67 Pulse Oximetry 98 99 100 Oxygen Delivery Method Room Air Oxygen Flow Rate 0 Narrative Exam Narrative: General appearance patient is awake alert no apparent distress at rest Psychiatric well oriented time place and person mood is pleasant affect is appropriate Respiratory clear to auscultation good airflow no wheezes crackles Cardiovascular regular rate rhythm no murmur +3 pulses to extremities GI fairly benign soft nontender positive bowel sounds no bruits Neurologic no focal neurologic changes cranial nerves 2-12 grossly intact Objective Labs Result Diagrams: 12/08/17 06:23 12/06/17 23:00 Labs: Laboratory Results - last 24 hr 12/08/17 12/08/17 06:23 09:30 WBC 9.4 RBC 4.31 L Hgb 12.1 L Hct 36.3 L MCV 84.3 MCH 28.2 MCHC 33.4 RDW 16.6 H Plt Count 320 Vancomycin Trough 11.0 Assessment & Plan Plan: Assessment/Plan Narrative: Chronic Heroin addiction while in patient methadone 30 mg twice daily Consult patient in a.m. today Patient's family in [facility] may be placing patient in a inpatient rehab facility when patient is stable to do so Septic right knee joint: Orthopedic surgeon washed out right knee on 12/07. ceftriaxone and vancomycin initially provided and switched to Zyvox 600 mg p.o. b.i.d. on December 08 Awaiting more definitive identification of the Staph aureus organism in microbiology Analgesic as needed Time Spent With Patient Time with patient: Greater than 35 minutes (25 min)
--- NOTE | 2017-12-08 15:27 | CM.DPC ---
Addendum entered by ARSH Parkinson 12/08/17 15:54: Updated mom Hayley after the conversation w/pt and Dr Day. Culture results pending. Original Note: DCP Cont: Spoke w/pt's mom Hayley this morning, w/pt's permission. Had lengthy conversation. Hayley lives in [place]. She and her brother, pt's Uncle, have been trying to stay in close contact w/pt, sending money occasionally. When Hayley and her brother (in [place]) have sent money, they will not hear from pt and they suspect pt is using this $ for drugs. They will not send anymore money. Hayley explains that Ramiro has been living in his [place] [address]. He was living w/girlfriend Collette until they got evicted and had to stay in her car. In November, Collette arrived to our ER and needed to be transferred to [facility] d/t endocarditis and need for heart surgery. She remains there. Hayley explains pt is heart broken and thinks mostly of Collette's welfare before his own. Hayley is encouraging pt to get on a (paid) flight to his uncle's where he can remain clean, have stable housing, and get into a rehab that his uncle has already secured on pt's behalf. Uncle is ready for pt shari. Hayley is concerned about pt getting to the airport and what will be done w/pt's car and personal items? This MARKER DELIVERY explained our team wanted to help pt to be as successful as possible in getting and staying clean. Transportation to the airport and confiscation of these personal items would need to be discussed w/pt. Hayley hopeful for her son and appreciative of the conversation and partnership to help her son. This MARKER DELIVERY attempted to meet w/pt alone; Dr Day was having a lengthy conversation w/pt. Joined Dr Day while he encouraged abstinence from IVDU. Pt seems willing to fly to [place] to meet his Uncle and complete a rehab course. Today, he explains he knows he needs to get out of town, somewhere he doesn't know people that use. Then reviewed medical POC: All is dependent, at this time, on the culture results that will likely be available Monday. [place] explains if these results indicate Staph, 6 weeks of IV abx will be required, drug and dosing are TBD. Pt aware he will not be allowed to leave with an access line, PICC. Pending culture results and addtl. information from the Ortho team: Pt may require outpt IV abx, [facility] infusion clinic vs [facility] infusion clinic (?) Following closely re: next steps in POC. ARSH Parkinson
[2017-12-08 15:39] LABS: C-Reactive Protein Quant 15.5 mg/dL (<1.0)
[2017-12-09] VITALS (10 sets, daily range): BP systolic 101–114; BP diastolic 51–81; PULSE 72–84; RESP 16–20; TEMP 36.5–37; O2SAT 94–98
[2017-12-09] MEDS: LACTATED RINGERS 1,000 ML 42 ML IV ×2 (00:26→23:04)
[2017-12-09] MEDS: OXYCODONE IR 10 MG TABLET PO (05:18)
[2017-12-09 06:19] LABS: C-Reactive Protein Quant 13.5 mg/dL (<1.0)
[2017-12-09] MEDS: METHADONE 10 MG TABLET 30 MG PO ×2 (09:39→20:43)
[2017-12-09] MEDS: LINEZOLID 600 MG TABLET PO ×2 (09:40→20:41)
[2017-12-09] MEDS: DOCUSATE 100 MG CAPSULE PO ×2 (09:40→20:41)
[2017-12-09] MEDS: ENOXAPARIN 40 MG/0.4 ML SYRINGE SUBCUT (09:40)
[2017-12-09] MEDS: ACETAMINOPHEN 325 MG TABLET 975 MG PO ×3 (09:41→20:40)
--- NOTE | 2017-12-09 10:18 | P.PN_ITS ---
Subjective Date Patient Seen: 12/09/17 Time Patient Seen: 10:13 Interval history: Pain mild. Denies fever chills. Otherwise without complaints. Exam Vital Signs (past 8 hours): - 12/09/17 05:10 12/09/17 08:20 Temperature 98.2 F 98.6 F Pulse Rate 84 77 Respiratory Rate 16 18 Blood Pressure 114/62 114/69 Pulse Oximetry 98 98 Oxygen Delivery Method Room Air Oxygen Flow Rate 0 Narrative Exam Narrative: 32-year-old male resting comfortably in bed in no apparent distress. Mild to moderate generalized swelling. Dressing in place. Motor function is intact distal right lower extremity. Sensation intact distal right lower extremity. Objective Labs Result Diagrams: 12/08/17 06:23 12/06/17 23:00 Labs: Laboratory Results - last 24 hr 12/08/17 12/09/17 15:06 05:21 C-Reactive Protein 15.5 H 13.5 H Gram Stain Final 12/07/17-7 White blood cells Many poly WBCs No Organism Seen No organisms seen Aerobic Culture for wounds Preliminary 12/08/17- 1038 No growth. Anaerobic Culture Pending Assessment & Plan Post-op Postoperative Procedures Operation Date: 12/07/17 19:00 Actual Procedures Side Surgeon p Incision and Drainage Knee with lavage irrigation Right Hansel Gagnon MD POD #2 s/p I+D of right knee with Dr. Gagnon. Continue zyvox 600 mg PO bid. Preliminary culture is Staph aureus. Will be nonweightbearing on the right. Keep drain in place for 48 hr. Continue to monitor knee for any redness or warmth.
--- NOTE | 2017-12-09 10:41 | PT.IPTN ---
Current Diagnoses Opioid use, unspecified with withdrawal (12/07/17) Other psychoactive substance abuse, uncomplicated (12/07/17) Pyogenic arthritis, unspecified (12/07/17) Surgery Performed Operation Date: 12/07/17 19:00 Actual Procedures p Incision and Drainage Knee with lavage irrigation(Right) - Hansel Gagnon MD Physical Therapy Treatment Note M2 PT-IP Current Condition Start: 12/08/17 12:06 Freq: NEEDED Status: Active Protocol: Document 12/08/17 10:34 AB (Rec: 12/08/17 12:54 AB [id number]) Physical Therapy Current Condition Current Condition Evaluation Date 12/08/17 Treatment Diagnosis R septic knee s/p I&D Onset Date 12/07/17 Precautions Other Precautions contact precautions R knee sepsis h/o IV drug use Weight Bearing Status Weight Bearing Status Non-Weight Bearing Allowed Weight Bearing Amount (enter % NWB RLE or #) (%) M3 PT-IP Subjective Start: 12/08/17 12:06 Freq: NEEDED Status: Active Protocol: Document 12/09/17 10:41 AB (Rec: 12/09/17 12:45 AB [id number]) Subjective Physical Therapy Visit Type Type Treatment Note Visit Start Time 10:41 Visit Stop Time 11:01 Total Visit Minutes 25 Number of BODY FINISHER Visits 0 Physical Therapy Visit Comments Patient Comments pt agreeable to do PT Therapy Pain Assessment Pain When Pain Assessed At Rest Pain Present Pain Present Pain Reported Location Right Knee Intensity 2 Scale Used Numeric (1 - 10) Pain Management Techniques Timing of Activity with Medications M4 PT-IP Mobility and Gait Start: 12/08/17 12:06 Freq: NEEDED Status: Active Protocol: Document 12/09/17 10:41 AB (Rec: 12/09/17 12:45 AB [id number]) PT-Bed Mobility Assessment Supine to Sit Supine to Sit Standby Assistance PT-Transfer Assessment Sit to and From Stand Sit to and from Stand Standby Assistance Equipment Transfer Assistive Device Gait Belt Axillary Crutches Orthotic/Prosthetic Devices or Brace: No Transfers Transfer Destination Chair Transfer Technique pt ambulated to the chair using crutches Transfer Ability Level of Assist Contact Guard Assistance Gait Assessment Gait Gait Assistance Required: Contact Guard Assist Minimum Assistance Distance (Feet) 50 Able to Maintain Weight Bearing Status Yes During Gait Assistive Devices Assistive Device Gait Belt Axillary Crutches Orthotic/Prosthetic Devices or Brace: No Factors Limiting Gait Function Factors Limiting Gait Function Decreased Activity Tolerance Decreased Strength Limited Range of Motion Pain Poor Balance Poor Safety Awareness Comments Gait Comments pt seems to be unsteady with ambulation today compared to yesterdays but stated that he is still sleepy. pt required CGA with occasional min A and cues. Increase stability noted as pt ambulates. M5 PT-IP Objective Assessments Start: 12/08/17 12:06 Freq: NEEDED Status: Active Protocol: Document 12/08/17 10:34 AB (Rec: 12/08/17 12:54 AB [id number]) Orientation Orientation/Cognition Level of Alertness Alert Orientation Name Age Birthday Month Date Year Day of Week Place Situation Gross Range of Motion Lower Extremity ROM Assessment Right Impaired Impairments decrease R knee flexion with increrase tightness/muscle guarding with PROM Strength Lower Extremity Strength Assessment Right Impaired Knee 3-/5 M6 PT-IP Treatment Start: 12/08/17 12:06 Freq: NEEDED Status: Active Protocol: Document 12/09/17 10:41 AB (Rec: 12/09/17 12:45 AB [id number]) Physical Therapy Treatment Exercises Exercises Ankle Pumps Heel Slides Seated Knee Flexion/Extension Education Education Provided Weight Bearing Status Safety Equipment Issued Equipment Type and Company informed embedded case manager for request for crutches order upon d/c Other Treatments Other Treatment Performed completed heel slide AAROM and seated marching M7 PT-IP Assessment and Plan Start: 12/08/17 12:06 Freq: NEEDED Status: Active Protocol: Document 12/09/17 10:41 AB (Rec: 12/09/17 12:45 AB [id number]) PT Summary Assessment and Plan Potential Rehabilitation Potential Good Summary Impairments Pain ROM Strength Balance Bed Mobility Transfers Gait Activity Tolerance Progress Towards Goals Slow Progress due to Medical Issues Assessment Summary pt requiring CGA to min A with ambulation. continues to have weakness on RLE but able to maintain weight bearing restriction of NWB during ambulation. pt will require crutches on d/c. will continues PT to improve strength and ambulation using bilateral crutches. Goals Bed Mobility Goal Independent Transfer Goal Independent Gait Goal Independent Gait Distance 200 Other Goals up/down 6 steps using bilateral crutches SBA Days to Meet Goals 3 Frequency of Treatment Frequency Of Treatment Once a Day Treatment Plan Physical Therapy Treatment Plan Bed Mobility Training Transfer Training Gait Training Therapeutic Exercise Balance Retraining Post Op Education Discharge Planning Hot or Cold Pack Neuromuscular Re-ed Recommendations To Nursing Amount of Assist Needed 1 Person Assist Discharge Recommendations PT Discharge Recommendations Home with Assistance Outpatient PT Equipment Needed for Home Before bilateral axillary crutches Discharge
--- NOTE | 2017-12-09 13:02 | CM.DPC ---
DCP Cont: Per Hospitalist , requesting SW to find out if pt's insurance covers oral Zyvox 600 mg bid, and pt may be able to use this rather than IV meds pending pt's culture results and discussion with surgeon. MANDY Alfonso faxed facesheet and med to [facility] and they called and confirmed that pt's insurance automatically covers the first 14 days but after that pt's PCP would need to submit request to insurance for auth for more medication. SW met bedside with pt and confirmed that pt is not established with a PCP and SW updated him on the oral medication coverage. Pt would be willing to establish with PCP but right now unknown what medications pt will need at d/c pending cultures. Pt states that he still plans to go to [place] for CD Inpt Rehab at discharge pending his medical needs and states he was able to get a friend to tow his vehicle and belongings to their house for safe keeping. Pt states he could get a friend to transport him to the airport to fly to Rehab and worst case scenario I can take the [employer] shuttle to the airport and pay for it. Per PT, requesting order for crutches for the pt at d/c and that pt is ambulating without much pain but needing to use crutches for non weight baring. SW placed order. Plan: SW to follow closely after culture results towards determining what medications are needed (oral vs IV meds) which will help to determine d/c plan and needs (establish with a PCP for ongoing medication management? Stay here for IV meds? D/C directly to airport to fly to Inpt Rehab for CD?) ARSH Sequeira
--- NOTE | 2017-12-09 17:01 | PM.PN.1 ---
Subjective Date Patient Seen: 12/09/17 Time Patient Seen: 15:01 Interval history: History of present illness Follow-up on patient with his septic right knee joint Status post irrigation and washout by the orthopedic surgeon Culture came back positive for MRSA and sensitive to Zyvox Patient started on Zyvox 600 mg p.o. b.i.d. yesterday dude ranch manager notes insurance company has indicated they will cover the 1st 2 weeks of Zyvox. Patient's family may be willing to help with further coverage so that patient has had a total of 6 weeks of antibiotic coverage since the washout Note patient is homeless. Patient lives in the front seat of [employer] this time Patient's girlfriend is in [facility] in [place] with endocarditis related IV drug abuse Review of systems No chest pain or shortness of breath no nausea Patient notes a right knee pain is subsiding. Patient was ambulating with crutches yesterday. Exam Vital Signs (past 8 hours): - 12/09/17 12:55 12/09/17 15:55 Temperature 98.1 F 97.7 F Pulse Rate 80 72 Respiratory Rate 20 20 Blood Pressure 107/81 101/51 L Pulse Oximetry 98 98 Oxygen Delivery Method Room Air Oxygen Flow Rate 0 Narrative Exam Narrative: General appearance awake and alert no apparent distress at rest Psychiatric well oriented to time place and person mood is pleasant affect is appropriate Respiratory is clear to auscultation with good airflow no wheezes no crackles Cardiovascular regular rate rhythm no murmurs GI is relatively benign soft nontender positive bowel sounds Neurologic no focal neurologic changes cranial nerves 2-12 grossly intact no tremors noted Right knee region bandaged. 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 ceftriaxone and vancomycin initially provided and switched to Zyvox 600 mg p.o. b.i.d. on December 08 Culture of the right knee reports MRSA sensitive to Zyvox Insurance is willing to cover the 1st 2 weeks. Family may be willing to cover the remainder portion to follow Patient will need 6 weeks of antibiotic coverage since the washout by Orthopedic surgery Physical therapy following patient. Patient was ambulated with a set of crutches and nonweightbearing to the right lower extremity during walk Time Spent With Patient Time with patient: 25 - 35 minutes (25 min)
--- NOTE | 2017-12-09 17:07 | P.PN_ITS ---
Subjective Date Patient Seen: 12/09/17 Time Patient Seen: 15:01 Interval history: History of present illness Follow-up on patient with his septic right knee joint Status post irrigation and washout by the orthopedic surgeon Culture came back positive for MRSA and sensitive to Zyvox Patient started on Zyvox 600 mg p.o. b.i.d. yesterday underwriting operations manager notes insurance company has indicated they will cover the 1st 2 weeks of Zyvox. Patient's family may be willing to help with further coverage so that patient has had a total of 6 weeks of antibiotic coverage since the washout Note patient is homeless. Patient lives in the front seat of [employer] this time Patient's girlfriend is in [facility] in [place] with endocarditis related IV drug abuse Review of systems No chest pain or shortness of breath no nausea Patient notes a right knee pain is subsiding. Patient was ambulating with crutches yesterday. Exam Vital Signs (past 8 hours): - 12/09/17 12:55 12/09/17 15:55 Temperature 98.1 F 97.7 F Pulse Rate 80 72 Respiratory Rate 20 20 Blood Pressure 107/81 101/51 L Pulse Oximetry 98 98 Oxygen Delivery Method Room Air Oxygen Flow Rate 0 Narrative Exam Narrative: General appearance awake and alert no apparent distress at rest Psychiatric well oriented to time place and person mood is pleasant affect is appropriate Respiratory is clear to auscultation with good airflow no wheezes no crackles Cardiovascular regular rate rhythm no murmurs GI is relatively benign soft nontender positive bowel sounds Neurologic no focal neurologic changes cranial nerves 2-12 grossly intact no tremors noted Right knee region bandaged. 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 ceftriaxone and vancomycin initially provided and switched to Zyvox 600 mg p.o. b.i.d. on December 08 Culture of the right knee reports MRSA sensitive to Zyvox Insurance is willing to cover the 1st 2 weeks. Family may be willing to cover the remainder portion to follow Patient will need 6 weeks of antibiotic coverage since the washout by Orthopedic surgery Physical therapy following patient. Patient was ambulated with a set of crutches and nonweightbearing to the right lower extremity during walk Time Spent With Patient Time with patient: 25 - 35 minutes (25 min)
[2017-12-09] MEDS: HYDROMORPHONE 2 MG TABLET PO (20:41)
[2017-12-10] VITALS (8 sets, daily range): BP systolic 103–148; BP diastolic 55–74; PULSE 72–82; RESP 18–20; TEMP 35.9–36.8; O2SAT 95–100
[2017-12-10 05:51] LABS: C-Reactive Protein Quant 8.3 mg/dL (<1.0)
[2017-12-10] MEDS: ACETAMINOPHEN 325 MG TABLET 975 MG PO ×3 (10:24→21:09)
[2017-12-10] MEDS: ENOXAPARIN 40 MG/0.4 ML SYRINGE SUBCUT (10:24)
[2017-12-10] MEDS: DOCUSATE 100 MG CAPSULE PO ×2 (10:25→21:09)
[2017-12-10] MEDS: LINEZOLID 600 MG TABLET PO ×2 (10:25→21:09)
[2017-12-10] MEDS: METHADONE 10 MG TABLET 30 MG PO ×2 (10:25→21:09)
--- NOTE | 2017-12-10 10:25 | PT.IPTN ---
Current Diagnoses Opioid use, unspecified with withdrawal (12/07/17) Other psychoactive substance abuse, uncomplicated (12/07/17) Pyogenic arthritis, unspecified (12/07/17) Surgery Performed Operation Date: 12/07/17 19:00 Actual Procedures p Incision and Drainage Knee with lavage irrigation(Right) - Hansel Gagnon MD Physical Therapy Treatment Note M2 PT-IP Current Condition Start: 12/08/17 12:06 Freq: NEEDED Status: Active Protocol: Document 12/10/17 10:25 RCC (Rec: 12/10/17 12:21 [facility] [id number]) Physical Therapy Current Condition Current Condition Evaluation Date 12/08/17 Treatment Diagnosis R septic knee s/p I&D Onset Date 12/07/17 Precautions Other Precautions contact precautions R knee sepsis h/o IV drug use Weight Bearing Status Weight Bearing Status Non-Weight Bearing Allowed Weight Bearing Amount (enter % NWB RLE or #) (%) M3 PT-IP Subjective Start: 12/08/17 12:06 Freq: NEEDED Status: Active Protocol: Document 12/10/17 10:25 RCC (Rec: 12/10/17 12:21 [facility] [id number]) Subjective Physical Therapy Visit Type Type Treatment Note Visit Start Time 10:11 Visit Stop Time 10:25 Total Visit Minutes 14 Number of BLOOD TESTER Visits 0 Physical Therapy Visit Comments Patient Comments Pt states he is just really tired, wants to rest, but agreeable to participate in PT . M4 PT-IP Mobility and Gait Start: 12/08/17 12:06 Freq: NEEDED Status: Active Protocol: Document 12/10/17 10:25 RCC (Rec: 12/10/17 12:21 [facility] [id number]) PT-Bed Mobility Assessment Supine to Sit Supine to Sit Independent Sit to Supine Sit to Supine Independent Scooting Scooting to Edge of Bed Independent PT-Transfer Assessment Sit to and From Stand Sit to and from Stand Independent Equipment Transfer Assistive Device Axillary Crutches Transfers Transfer Destination Bed Transfer Technique swing through pattern, scooting on LLE Transfer Ability Level of Assist Independent Use of Upper Extremities Comments Mobility Comments pt able to maintain NWB Gait Assessment Gait Gait Assistance Required: Standby Assistance Distance (Feet) 75 Able to Maintain Weight Bearing Status Yes During Gait Assistive Devices Assistive Device Axillary Crutches Gait Deviations General Gait Pattern Within Normal Limits Factors Limiting Gait Function Factors Limiting Gait Function Decreased Activity Tolerance M5 PT-IP Objective Assessments Start: 12/08/17 12:06 Freq: NEEDED Status: Active Protocol: Document 12/08/17 10:34 AB (Rec: 12/08/17 12:54 AB [id number]) Orientation Orientation/Cognition Level of Alertness Alert Orientation Name Age Birthday Month Date Year Day of Week Place Situation Gross Range of Motion Lower Extremity ROM Assessment Right Impaired Impairments decrease R knee flexion with increrase tightness/muscle guarding with PROM Strength Lower Extremity Strength Assessment Right Impaired Knee 3-/5 M6 PT-IP Treatment Start: 12/08/17 12:06 Freq: NEEDED Status: Active Protocol: Document 12/10/17 10:25 RCC (Rec: 12/10/17 12:21 [facility] [id number]) Physical Therapy Treatment Exercises Exercises Quad Sets Seated Knee Flexion/Extension Education Education Provided Precautions Weight Bearing Status Safety M7 PT-IP Assessment and Plan Start: 12/08/17 12:06 Freq: NEEDED Status: Active Protocol: Document 12/10/17 10:25 RCC (Rec: 12/10/17 12:21 [facility] [id number]) PT Summary Assessment and Plan Summary Progress Towards Goals Progressing Toward Goals Assessment Summary Pt is indep. with bed mobility and transfers, SBA for swing- through gait pattern utilizing bilateral axillary crutches and NWB RLE. Pt maintained NWB entire session, and reviewed quad sets. Discussed stair training with the pt, and would benefit from stair training prior to d/c. D/c plan still appears to be uncertain at this point, possibly flying to [place] vs. d/c here locally. Will continue to monitor. Orders written for crutches upon d/c, crutches available to be dispensed on day of d/c. Goals Bed Mobility Goal Independent Transfer Goal Independent Gait Goal Independent Gait Distance 200 Other Goals up/down 6 steps using bilateral crutches SBA Days to Meet Goals 3 Frequency of Treatment Frequency Of Treatment Once a Day Treatment Plan Other Recommendations and Next Treatment stair and gait training, Focus review exercises Recommendations To Nursing Amount of Assist Needed 1 Person Assist Discharge Recommendations PT Discharge Recommendations Home with Assistance Outpatient PT Equipment Needed for Home Before bilateral axillary crutches ( Discharge available now, prescription is written)
--- NOTE | 2017-12-10 13:50 | PM.PN.1 ---
Subjective Date Patient Seen: 12/10/17 Time Patient Seen: 13:50 Interval history: Continued ongoing right knee pain. Patient has worked with physical therapy today and then out of bed. Exam Vital Signs (past 8 hours): - 12/10/17 07:58 12/10/17 10:00 12/10/17 11:48 Temperature 98.3 F 97.7 F Pulse Rate 72 82 Respiratory Rate 18 18 Blood Pressure 103/63 112/62 Pulse Oximetry 96 96 95 Oxygen Delivery Method Room Air Oxygen Flow Rate 0 Narrative Exam Narrative: Alert and oriented, resting comfortably in bed. Dressing changes performed and his Kvng is removed. He has a small amount of drainage both from the medial lateral aspect of his knee. He has pain with range of motion in his knee, there is a mild effusion. Objective Labs Result Diagrams: 12/08/17 06:23 12/06/17 23:00 Labs: Laboratory Results - last 24 hr 12/10/17 05:16 C-Reactive Protein 8.3 H Assessment & Plan Plan: Assessment/Plan Narrative: Septic right knee responding to therapy and antibiotics. His Kvng was removed without difficulty. Continue to work on mobilizing and can be discharged on antibiotics as per Medicine Service.
--- NOTE | 2017-12-10 15:25 | PC.NURSE ---
alert and oriented x4, VSS on RA, utilized prescribed analgesics, has not asked for any PRN narcotics. Seems slightly apathetic but participating in care. MD removed dressing and removed drains, knee still swollen and tender, no redness, sutures intact. Dressing applied, gauze and coban placed. CMS intact.
--- NOTE | 2017-12-10 17:39 | PM.PN.1 ---
Subjective Date Patient Seen: 12/10/17 Time Patient Seen: 10:40 Interval history: History of present illness Patient id the hospital with a septic right knee which turned out to be MRSA on culture. Patient had a washout and irrigation by orthopedic surgeon on December 07 . Patient was initially placed on vancomycin and Rocephin antibiotic. Antibiotic changed to Zyvox 600 mg p.o. b.i.d. on 12/08. Patient's insurance will pay the 1st 14 days of Zyvox in outpatient setting. Patient will need a total 6 weeks of antibiotic therapy following the Orthopedic surgery procedure. Patient is planning to hopefully travel [place] to stay with family. I requested patient have a family member fly up to [place] and with a rental car come out to [place] to bring patient to [place] [facility] and return home. Patient will talk to his family about this On is next phone call today. Note patient has a girlfriend at [facility] and is being treated for endocarditis related to IV drug abuse. I was pleased to see patient note that his right knee pain is improving quite remarkably when I asked yesterday in a.m.. I had a long chat with the patient regarding his IV drug abuse on 12/07. Hopefully patient will have the continued favorable attitude Regarding his IV heroin addiction, Review of systems No chest pain or shortness of breath or nausea Right leg pain specifically the right knee certainly doing much better according to the patient Exam Vital Signs (past 8 hours): - 12/10/17 10:00 12/10/17 11:48 Temperature 97.7 F Pulse Rate 82 Respiratory Rate 18 Blood Pressure 112/62 Pulse Oximetry 96 95 Oxygen Delivery Method Room Air Oxygen Flow Rate 0 Narrative Exam Narrative: General appearance patient is awake and alert no apparent distress Psychiatric well oriented to time place and person mood is pleasant affect is appropriate Respiratory is fairly clear to auscultation no wheezes crackles Cardiovascular regular rate rhythm no murmurs GI is benign and soft nontender positive bowel sounds are noted no bruits Neurologic no focal neurologic changes cranial nerves 2-12 grossly intact Objective Labs Result Diagrams: 12/08/17 06:23 12/06/17 23:00 Labs: Laboratory Results - last 24 hr 12/10/17 05:16 C-Reactive Protein 8.3 H Assessment & Plan Plan: Assessment/Plan Narrative: 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 ceftriaxone and vancomycin initially provided and switched to Zyvox 600 mg p.o. b.i.d. on December 08 Culture of the right knee reports MRSA sensitive to Zyvox Insurance is willing to cover the 1st 2 weeks. Family may be willing to cover the remainder portion to follow Patient will need 6 weeks of antibiotic coverage since the washout by Orthopedic surgery Physical therapy following patient. Patient was ambulated with a set of crutches and nonweightbearing to the right lower extremity during walk Time Spent With Patient Time with patient: 25 - 35 minutes (25 min visit with patient)
--- NOTE | 2017-12-10 17:46 | P.PN_ITS ---
Subjective Date Patient Seen: 12/10/17 Time Patient Seen: 10:40 Interval history: History of present illness Patient id the hospital with a septic right knee which turned out to be MRSA on culture. Patient had a washout and irrigation by orthopedic surgeon on December 07 . Patient was initially placed on vancomycin and Rocephin antibiotic. Antibiotic changed to Zyvox 600 mg p.o. b.i.d. on 12/08. Patient's insurance will pay the 1st 14 days of Zyvox in outpatient setting. Patient will need a total 6 weeks of antibiotic therapy following the Orthopedic surgery procedure. Patient is planning to hopefully travel [place] to stay with family. I requested patient have a family member fly up to [place] and with a rental car come out to [place] to bring patient to [facility] and return home. Patient will talk to his family about this On is next phone call today. 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 I was pleased to see patient note that his right knee pain is improving quite remarkably when I asked yesterday in a.m.. I had a long chat with the patient regarding his IV drug abuse on 12/07. Hopefully patient will have the continued favorable attitude Regarding his IV heroin addiction, Review of systems No chest pain or shortness of breath or nausea Right leg pain specifically the right knee certainly doing much better according to the patient Exam Vital Signs (past 8 hours): - 12/10/17 10:00 12/10/17 11:48 Temperature 97.7 F Pulse Rate 82 Respiratory Rate 18 Blood Pressure 112/62 Pulse Oximetry 96 95 Oxygen Delivery Method Room Air Oxygen Flow Rate 0 Narrative Exam Narrative: General appearance patient is awake and alert no apparent distress Psychiatric well oriented to time place and person mood is pleasant affect is appropriate Respiratory is fairly clear to auscultation no wheezes crackles Cardiovascular regular rate rhythm no murmurs GI is benign and soft nontender positive bowel sounds are noted no bruits Neurologic no focal neurologic changes cranial nerves 2-12 grossly intact Objective Labs Result Diagrams: 12/08/17 06:23 12/06/17 23:00 Labs: Laboratory Results - last 24 hr 12/10/17 05:16 C-Reactive Protein 8.3 H Assessment & Plan Plan: Assessment/Plan Narrative: 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 ceftriaxone and vancomycin initially provided and switched to Zyvox 600 mg p.o. b.i.d. on December 08 Culture of the right knee reports MRSA sensitive to Zyvox Insurance is willing to cover the 1st 2 weeks. Family may be willing to cover the remainder portion to follow Patient will need 6 weeks of antibiotic coverage since the washout by Orthopedic surgery Physical therapy following patient. Patient was ambulated with a set of crutches and nonweightbearing to the right lower extremity during walk Time Spent With Patient Time with patient: 25 - 35 minutes (25 min visit with patient)
[2017-12-10] MEDS: HYDROMORPHONE 2 MG TABLET PO (21:10)
[2017-12-11] VITALS (7 sets, daily range): BP systolic 104–121; BP diastolic 56–68; PULSE 72–82; RESP 14–20; TEMP 36.6–36.8; O2SAT 95–98
--- NOTE | 2017-12-11 | DI.RAD.S_ITS ---
PROCEDURE: XR CHEST FOR PICC 1V INDICATIONS: Picc line COMPARISON: None. FINDINGS: PICC was placed by the intravenous therapy team from the left side. Fluoroscopic spot film demonstrates tip of PICC in the distal SVC. IMPRESSION: Tip of PICC lies within the distal SVC. Dictated by: Chaz Willoughby M.D. on 12/11/2017 at 15:28 Approved by: Chaz Willoughby M.D. on 12/11/2017 at 15:28
--- NOTE | 2017-12-11 01:01 | PC.NURSE ---
Alert/oriented. Denies pain/discomfort. Dressing CDI. call light within reach. Denies any needs.
[2017-12-11 05:48] LABS: C-Reactive Protein Quant 6.7 mg/dL (<1.0)
--- NOTE | 2017-12-11 07:57 | PM.PNPO.1 ---
Subjective Date Patient Seen: 12/11/17 Time Patient Seen: 07:57 Interval history: Pain mild. Denies fever or chills. Exam Vital Signs (past 8 hours): - 12/11/17 00:45 12/11/17 05:20 Temperature 98.3 F 98 F Pulse Rate 82 78 Respiratory Rate 18 20 Blood Pressure 104/60 117/64 Pulse Oximetry 98 95 Oxygen Delivery Method Room Air Oxygen Flow Rate 0 Narrative Exam Narrative: Dressing CDI. Motor function intact. Sensation grossly intact. Mild generalized swelling about the right knee. Objective Labs Result Diagrams: 12/08/17 06:23 12/06/17 23:00 Labs: Laboratory Results - last 24 hr 12/11/17 05:07 C-Reactive Protein 6.7 H Assessment & Plan Post-op Postoperative Procedures Operation Date: 12/07/17 19:00 Actual Procedures Side Surgeon p Incision and Drainage Knee with lavage irrigation Right Hansel Gagnon MD Septic right knee responding to therapy and antibiotics. Continue to work on mobilizing and can be discharged on antibiotics as per Medicine Service.
--- NOTE | 2017-12-11 09:18 | PC.NURSE ---
Addendum entered by Nedra Guerrero R.N. 12/11/17 10:24: C/O 4/10 pain in R knee. Medicated with scheduled Tylenol and Methadone as ordered. Able to make needs known and calls appropriately. Wants to try and nap for a bit. Call light in reach. Original Note: Shift summary: Awake and alert, oriented X3. Dressing to R knee C/D/I. CMS+ (cap refill <2 sec, PP+). Denies paresthesias. Denies fever/chills, temp this morning 98.1. Able to move around in bed independently, agrees to call for SBA OOB. He is non-weight bearing status for RLE and is using crutches. States no needs at this time, call light in reach.
[2017-12-11] MEDS: METHADONE 10 MG TABLET 30 MG PO ×2 (10:08→20:35)
[2017-12-11] MEDS: ACETAMINOPHEN 325 MG TABLET 975 MG PO ×3 (10:09→20:36)
[2017-12-11] MEDS: ENOXAPARIN 40 MG/0.4 ML SYRINGE SUBCUT (10:10)
[2017-12-11] MEDS: LINEZOLID 600 MG TABLET PO (10:10)
[2017-12-11] MEDS: DOCUSATE 100 MG CAPSULE PO ×2 (10:10→20:36)
--- NOTE | 2017-12-11 13:26 | CM.DPC ---
Addendum entered by Krissy Zapata 12/11/17 13:41: Magda at [facility] reports PCP listed in database is Dr. Trevino ph# [phone]. Original Note: DCP/Note continued: Reviewed chart. Spoke with Dr. Porter this AM in rounds. Patient currently requiring IV vanco. Dr. Porter plans to speak with ID today to determine if patient could go out on po zyvox. Otherwise patient will need to remain hospitalized for duration of IV therapy or SNF. Spoke with Magda at [facility]. She requested that H&P and ED note be faxed to [phone]. Both faxed and confirmation received. Note from Dr. Porter at 1:00pm indicates that patient will require IV therapy. Zyvox currently not an option. Patient with active IVDU therefore, not candidate for outpatient/home therapy. Asked [facility]/Naty to call Magda for contracted SNF list to begin search. P: CM team to follow closely and attempt SNF for continued IV abx theapy. It is estimated that patient will need IV abx for 4weeks. ARSH Pena
--- NOTE | 2017-12-11 14:10 | PM.PN.1 ---
Subjective Date Patient Seen: 12/11/17 Interval history: Patient denies constipation or significant pain. Patient was sleeping but easily arousable Exam Vital Signs (past 8 hours): - 12/11/17 07:40 12/11/17 09:13 12/11/17 12:29 Temperature 98.1 F 97.9 F Pulse Rate 81 72 Respiratory Rate 14 16 Blood Pressure 106/62 107/56 L Pulse Oximetry 96 96 98 Oxygen Delivery Method Room Air Oxygen Flow Rate 0 Narrative Exam Narrative: Pleasant male in NAD Lungs: clear to auscultation CV:RRR nl Sl S2 2/6 NICK ABd: soft/ non tender/non distended Ext: right knee with dressing in place Objective Labs Result Diagrams: 12/08/17 06:23 12/06/17 23:00 Labs: Laboratory Results - last 24 hr 12/11/17 05:07 C-Reactive Protein 6.7 H Assessment & Plan (1) Septic joint of right knee joint: Problem details: Discussed with ID. Recommendations is for 4 weeks of IV Daptomycin and then switching to two weeks of oral antbiotics. Zyvox not recommended. Patient was unable to obtain therapeutic levels of vancomycin. 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
--- NOTE | 2017-12-11 14:14 | P.PN_ITS ---
Subjective Date Patient Seen: 12/11/17 Interval history: Patient denies constipation or significant pain. Patient was sleeping but easily arousable Exam Vital Signs (past 8 hours): - 12/11/17 07:40 12/11/17 09:13 12/11/17 12:29 Temperature 98.1 F 97.9 F Pulse Rate 81 72 Respiratory Rate 14 16 Blood Pressure 106/62 107/56 L Pulse Oximetry 96 96 98 Oxygen Delivery Method Room Air Oxygen Flow Rate 0 Narrative Exam Narrative: Pleasant male in NAD Lungs: clear to auscultation CV:RRR nl Sl S2 2/6 NICK ABd: soft/ non tender/non distended Ext: right knee with dressing in place Objective Labs Result Diagrams: 12/08/17 06:23 12/06/17 23:00 Labs: Laboratory Results - last 24 hr 12/11/17 05:07 C-Reactive Protein 6.7 H Assessment & Plan (1) Septic joint of right knee joint: Problem details: Discussed with ID. Recommendations is for 4 weeks of IV Daptomycin and then switching to two weeks of oral antbiotics. Zyvox not recommended. Patient was unable to obtain therapeutic levels of vancomycin. Qualifiers: Septic arthritis organism: due to unspecified organism Qualified Code(s ): M00.9 - Pyogenic arthritis, unspecified Current visit: Yes Status: Acute (2) Drug abuse, IV: Problem details: On methadone Current visit: Yes Status: Acute (3) MRSA infection: Problem details: Daptomycin Current visit: Yes Status: Acute Plan: Assessment/Plan Narrative: PICC line placement, then SNF for [facility]entiary antibiotics
--- NOTE | 2017-12-11 16:53 | PT.IPTN ---
Current Diagnoses Methicillin resistant Staphylococcus aureus infection, unspecified site (12/07/17) Opioid use, unspecified with withdrawal (12/07/17) Other psychoactive substance abuse, uncomplicated (12/07/17) Pyogenic arthritis, unspecified (12/07/17) Surgery Performed Operation Date: 12/07/17 19:00 Actual Procedures p Incision and Drainage Knee with lavage irrigation(Right) - Hansel Gagnon MD Physical Therapy Treatment Note M2 PT-IP Current Condition Start: 12/08/17 12:06 Freq: NEEDED Status: Active Protocol: Document 12/10/17 10:25 RCC (Rec: 12/10/17 12:21 [facility] [id number]) Physical Therapy Current Condition Current Condition Evaluation Date 12/08/17 Treatment Diagnosis R septic knee s/p I&D Onset Date 12/07/17 Precautions Other Precautions contact precautions R knee sepsis h/o IV drug use Weight Bearing Status Weight Bearing Status Non-Weight Bearing Allowed Weight Bearing Amount (enter % NWB RLE or #) (%) M3 PT-IP Subjective Start: 12/08/17 12:06 Freq: NEEDED Status: Active Protocol: Document 12/11/17 16:51 LJ (Rec: 12/11/17 16:53 LJ [id number]) Subjective Physical Therapy Visit Type Type Patient Refusal Notes [employer]IE[employer]INE[employer] attempted to do a treatment with the pt three separate times but pt refused. M4 PT-IP Mobility and Gait Start: 12/08/17 12:06 Freq: NEEDED Status: Active Protocol: Document 12/10/17 10:25 RCC (Rec: 12/10/17 12:21 RCC [id number]) PT-Bed Mobility Assessment Supine to Sit Supine to Sit Independent Sit to Supine Sit to Supine Independent Scooting Scooting to Edge of Bed Independent PT-Transfer Assessment Sit to and From Stand Sit to and from Stand Independent Equipment Transfer Assistive Device Axillary Crutches Transfers Transfer Destination Bed Transfer Technique swing through pattern, scooting on LLE Transfer Ability Level of Assist Independent Use of Upper Extremities Comments Mobility Comments pt able to maintain NWB Gait Assessment Gait Gait Assistance Required: Standby Assistance Distance (Feet) 75 Able to Maintain Weight Bearing Status Yes During Gait Assistive Devices Assistive Device Axillary Crutches Gait Deviations General Gait Pattern Within Normal Limits Factors Limiting Gait Function Factors Limiting Gait Function Decreased Activity Tolerance M5 PT-IP Objective Assessments Start: 12/08/17 12:06 Freq: NEEDED Status: Active Protocol: Document 12/08/17 10:34 AB (Rec: 12/08/17 12:54 AB [id number]) Orientation Orientation/Cognition Level of Alertness Alert Orientation Name Age Birthday Month Date Year Day of Week Place Situation Gross Range of Motion Lower Extremity ROM Assessment Right Impaired Impairments decrease R knee flexion with increrase tightness/muscle guarding with PROM Strength Lower Extremity Strength Assessment Right Impaired Knee 3-/5 M6 PT-IP Treatment Start: 12/08/17 12:06 Freq: NEEDED Status: Active Protocol: Document 12/10/17 10:25 RCC (Rec: 12/10/17 12:21 [facility] [id number]) Physical Therapy Treatment Exercises Exercises Quad Sets Seated Knee Flexion/Extension Education Education Provided Precautions Weight Bearing Status Safety M7 PT-IP Assessment and Plan Start: 12/08/17 12:06 Freq: NEEDED Status: Active Protocol: Document 12/10/17 10:25 RCC (Rec: 12/10/17 12:21 [facility] [id number]) PT Summary Assessment and Plan Summary Progress Towards Goals Progressing Toward Goals Assessment Summary Pt is indep. with bed mobility and transfers, SBA for swing- through gait pattern utilizing bilateral axillary crutches and NWB RLE. Pt maintained NWB entire session, and reviewed quad sets. Discussed stair training with the pt, and would benefit from stair trianing prior to d/c. D/c plan still appears to be uncertain at this point, possibly flying to [place] vs. d/c here locally. Will continue to monitor. Orders written for crutches upon d/c, crutches available to be dispensed on day of d/c. Goals Bed Mobility Goal Independent Transfer Goal Independent Gait Goal Independent Gait Distance 200 Other Goals up/down 6 steps using bilateral crutches SBA Days to Meet Goals 3 Frequency of Treatment Frequency Of Treatment Once a Day Treatment Plan Other Recommendations and Next Treatment stair and gait training, Focus review exercises Recommendations To Nursing Amount of Assist Needed 1 Person Assist Discharge Recommendations PT Discharge Recommendations Home with Assistance Outpatient PT Equipment Needed for Home Before bilateral axillary crutches ( Discharge available now, prescription is written)
[2017-12-12 01:00] VITALS: BP 111/65; PULSE 88; RESP 16; TEMP 36.4; O2SAT 98
[2017-12-12 01:10] VITALS: O2SAT 98
[2017-12-12 07:50] VITALS: BP 117/63; PULSE 78; RESP 16; TEMP 37; O2SAT 97
[2017-12-12 09:21] VITALS: O2SAT 97
--- NOTE | 2017-12-12 09:26 | PM.PNPO.1 ---
Subjective Date Patient Seen: 12/12/17 Time Patient Seen: 09:26 Interval history: Hospital day 6, postop day 5 following right knee I and D for septic arthritis. Cultures did grow MRSA. Is being followed by hospitalist. He has been on Zyvox p.o. but it was recommended by ID physician the patient be switched to daptomycin which was started yesterday. Patient did have a PICC line placed yesterday. He is currently on methadone 30 mg b.i.d. for pain and Tylenol as needed. Has had limited weight-bearing and range of motion of right knee. Patient is apparently awaiting placement at SNF for IV therapy. Exam Vital Signs (past 8 hours): - 12/12/17 07:50 Temperature 98.6 F Pulse Rate 78 Respiratory Rate 16 Blood Pressure 117/63 Pulse Oximetry 97 Oxygen Delivery Method Room Air Oxygen Flow Rate 0 Narrative Exam Narrative: Alert, oriented no acute distress lying in bed. Right knee. There is serous drainage noted to the dressing had on his sheet from the right knee. Coban and dressing removed. Incisions appear to be healing without signs of infection or inflammation. There is mild opening to the medial incision without active drainage on compression of the knee. New dry dressing was applied. Objective Labs Result Diagrams: 12/08/17 06:23 12/06/17 23:00 Assessment & Plan Post-op Postoperative Procedures Operation Date: 12/07/17 19:00 Actual Procedures Side Surgeon p Incision and Drainage Knee with lavage irrigation Right Hansel Gagnon MD Plan: I did talk with Dr. Zapata regarding the patient's weight-bearing status and she recommended the patient should be able to go to full weight-bearing and range of motion of knee as tolerated. Will change dressing as needed. Patient awaiting discharge pending SNF placement by hospitalist for IV antibiotic treatment. It was recommended by ID physician that patient be on daptomycin IV x4 weeks then changed to p.o. antibiotic x2 weeks.
[2017-12-12] MEDS: DOCUSATE 100 MG CAPSULE PO ×2 (09:46→21:01)
[2017-12-12] MEDS: METHADONE 10 MG TABLET 30 MG PO (09:46)
[2017-12-12] MEDS: ACETAMINOPHEN 325 MG TABLET 975 MG PO ×3 (09:46→21:01)
[2017-12-12] MEDS: ENOXAPARIN 40 MG/0.4 ML SYRINGE SUBCUT (09:47)
--- NOTE | 2017-12-12 11:43 | PT.IPTN ---
Current Diagnoses Methicillin resistant Staphylococcus aureus infection, unspecified site (12/07/17) Opioid use, unspecified with withdrawal (12/07/17) Other psychoactive substance abuse, uncomplicated (12/07/17) Pyogenic arthritis, unspecified (12/07/17) Surgery Performed Operation Date: 12/07/17 19:00 Actual Procedures p Incision and Drainage Knee with lavage irrigation(Right) - Hansel Gagnon MD Physical Therapy Treatment Note M2 PT-IP Current Condition Start: 12/08/17 12:06 Freq: NEEDED Status: Active Protocol: Document 12/10/17 10:25 RCC (Rec: 12/10/17 12:21 [facility] [id number]) Physical Therapy Current Condition Current Condition Evaluation Date 12/08/17 Treatment Diagnosis R septic knee s/p I&D Onset Date 12/07/17 Precautions Other Precautions contact precautions R knee sepsis h/o IV drug use Weight Bearing Status Weight Bearing Status Non-Weight Bearing Allowed Weight Bearing Amount (enter % NWB RLE or #) (%) M3 PT-IP Subjective Start: 12/08/17 12:06 Freq: NEEDED Status: Active Protocol: Document 12/12/17 11:42 LRN (Rec: 12/12/17 11:43 [facility] [id number]) Subjective Physical Therapy Visit Type Type Patient Refusal Notes Pt resting peacefully in bed, requests later. Pt agreeable to PT after lunch.
--- NOTE | 2017-12-12 14:00 | P.PN_ITS ---
Subjective Date Patient Seen: 12/12/17 Interval history: Patient is resting comfortably and in no distress. He denies pain, diarrhea, abdominal pain or nausea Exam Vital Signs (past 8 hours): - 12/12/17 07:50 12/12/17 09:21 Temperature 98.6 F Pulse Rate 78 Respiratory Rate 16 Blood Pressure 117/63 Pulse Oximetry 97 97 Oxygen Delivery Method Room Air Oxygen Flow Rate 0 Narrative Exam Narrative: Pleasant male in no distress Lungs: clear to auscultation CV: RRR nl Sl S2 2/6 NICK Abd: soft/ non tender/ non distended Ext: right knee with dressing in place Objective Labs Result Diagrams: 12/08/17 06:23 12/06/17 23:00 Assessment & Plan (1) MRSA infection: Problem details: Daptomycin for 4 weeks, then 2 weeks oral antibiotics ( high dose Bactrim recommended) Current visit: Yes Status: Acute (2) Septic joint of right knee joint: Problem details: Discussed with ID. Recommendations is for 4 weeks of IV Daptomycin and then switching to two weeks of oral antbiotics. Zyvox not recommended. Patient was unable to obtain therapeutic levels of vancomycin. Recheck labs in am Qualifiers: Septic arthritis organism: due to unspecified organism Qualified Code(s ): M00.9 - Pyogenic arthritis, unspecified Current visit: Yes Status: Acute (3) Drug abuse, IV: Problem details: On methadone, will decrease dose to 20 mg twice daily Current visit: Yes Status: Acute
--- NOTE | 2017-12-12 15:34 | PT.IPTN ---
Current Diagnoses Methicillin resistant Staphylococcus aureus infection, unspecified site (12/07/17) Opioid use, unspecified with withdrawal (12/07/17) Other psychoactive substance abuse, uncomplicated (12/07/17) Pyogenic arthritis, unspecified (12/07/17) Surgery Performed Operation Date: 12/07/17 19:00 Actual Procedures p Incision and Drainage Knee with lavage irrigation(Right) - Hansel Gagnon MD Physical Therapy Treatment Note M2 PT-IP Current Condition Start: 12/08/17 12:06 Freq: NEEDED Status: Active Protocol: Document 12/10/17 10:25 RCC (Rec: 12/10/17 12:21 RCC [id number]) Physical Therapy Current Condition Current Condition Evaluation Date 12/08/17 Treatment Diagnosis R septic knee s/p I&D Onset Date 12/07/17 Precautions Other Precautions contact precautions R knee sepsis h/o IV drug use Weight Bearing Status Weight Bearing Status Non-Weight Bearing Allowed Weight Bearing Amount (enter % NWB RLE or #) (%) M3 PT-IP Subjective Start: 12/08/17 12:06 Freq: NEEDED Status: Active Protocol: Document 12/12/17 14:50 CLB (Rec: 12/12/17 15:34 [facility] [email or web address]) Subjective Physical Therapy Visit Type Type Treatment Note Visit Start Time 14:50 Visit Stop Time 15:05 Notes Per progress note Dr Zapata has recommended pt go to FWB and ROM as tolerated. Spoke with Dr. Porter and she will change status is pt chart. 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 Therapy Pain Assessment Pain When Pain Assessed During Mobility Pain Present Pain Present Pain Reported Location Right Knee Intensity 3 Scale Used Numeric (1 - 10) Description Pressure Pain Management Techniques Timing of Activity with Medications M4 PT-IP Mobility and Gait Start: 12/08/17 12:06 Freq: NEEDED Status: Active Protocol: Document 12/12/17 14:50 CLB (Rec: 12/12/17 15:34 CLB [id number]) PT-Bed Mobility Assessment Supine to Sit Supine to Sit Independent Sit to Supine Sit to Supine Independent Scooting Scooting to Edge of Bed Independent PT-Transfer Assessment Sit to and From Stand Sit to and from Stand Independent Equipment Transfer Assistive Device Axillary Crutches Transfers Transfer Destination Bed Transfer Technique Stand Step Pivot Gait Assessment Gait Gait Assistance Required: Standby Assistance Distance (Feet) 75 Able to Maintain Weight Bearing Status Yes During Gait Assistive Devices Assistive Device Axillary Crutches Factors Limiting Gait Function Factors Limiting Gait Function Decreased Activity Tolerance Decreased Strength Comments Gait Comments Pt steady with gait with WBAT stating he feels pressure and would rate it at 3/10 on pain scale. M5 PT-IP Objective Assessments Start: 12/08/17 12:06 Freq: NEEDED Status: Active Protocol: Document 12/08/17 10:34 AB (Rec: 12/08/17 12:54 AB [id number]) Orientation Orientation/Cognition Level of Alertness Alert Orientation Name Age Birthday Month Date Year Day of Week Place Situation Gross Range of Motion Lower Extremity ROM Assessment Right Impaired Impairments decrease R knee flexion with increrase tightness/muscle guarding with PROM Strength Lower Extremity Strength Assessment Right Impaired Knee 3-/5 M6 PT-IP Treatment Start: 12/08/17 12:06 Freq: NEEDED Status: Active Protocol: Document 12/12/17 14:50 CLB (Rec: 12/12/17 15:34 CLB [id number]) Physical Therapy Treatment Exercises Exercises Ankle Pumps Gluteal Sets Quad Sets Seated Knee Flexion/Extension Education Education Provided Precautions Weight Bearing Status Safety Equipment Issued Equipment Type and Company Dispense crutches at d/c. M7 PT-IP Assessment and Plan Start: 12/08/17 12:06 Freq: NEEDED Status: Active Protocol: Document 12/12/17 14:50 CLB (Rec: 12/12/17 15:34 CLB [id number]) PT Summary Assessment and Plan Summary Progress Towards Goals Progressing Toward Goals Assessment Summary Pt able to tolerate FWB on RLE with crutches SBA and ther ex .with slight increase in pain. Pt is Ind for all bed mobility and transfers. Goals Bed Mobility Goal Independent Transfer Goal Independent Gait Goal Independent Gait Distance 200 Other Goals up/down 6 steps using bilateral crutches SBA Days to Meet Goals 3 Frequency of Treatment Frequency Of Treatment Once a Day Treatment Plan Other Recommendations and Next Treatment stair and gait training, Focus review exercises Recommendations To Nursing Amount of Assist Needed 1 Person Assist Discharge Recommendations PT Discharge Recommendations Home with Assistance Outpatient PT Equipment Needed for Home Before bilateral axillary crutches ( Discharge available now, prescription is written)
[2017-12-12 16:00] VITALS: BP 118/66; PULSE 84; RESP 18; TEMP 36.7; O2SAT 97
[2017-12-12 16:25] VITALS: O2SAT 98
[2017-12-12] MEDS: METHADONE 10 MG TABLET 20 MG PO (20:59)
[2017-12-13] VITALS: O2SAT 98
[2017-12-13 00:40] VITALS: BP 122/63; PULSE 81; RESP 16; TEMP 36.8; O2SAT 96
[2017-12-13] MEDS: HYDROMORPHONE 2 MG TABLET PO (02:39)
[2017-12-13 05:26] LABS: Add Manual Diff / Slide Review NO; Basophils Percent Auto 0.6 % (0-2); Eosinophils Percent Auto 5.9 % (2-4); Hematocrit 33.6 % (41-53); Hemoglobin 11.2 g/dL (13.5-17.5); Lymphocytes Percent Auto 22.4 % (25-40); Mean Corpuscular HGB Conc 33.3 % (30-36); Mean Corpuscular Hemoglobin 27.9 PG (26-34); Mean Corpuscular Volume 83.9 fL (80-100); Monocytes Percent Auto 8.7 % (3-14); Neutrophils Absolute Auto 5600 /uL (3000-5900); Neutrophils Percent Auto 62.4 % (50-75); Platelet Count 533 X10^3/uL (150-400); Red Blood Cell Count 4.01 X10^6/uL (4.5-5.9); Red Cell Distribution Width 15.7 % (11.6-14.8)
[2017-12-13 05:33] LABS: Alanine Aminotransferase 55 IU/L (21-72); Albumin 3.8 g/dL (3.5-5.0); Alkaline Phosphatase 86 U/L (38-126); Aspartate Aminotransferase 37 IU/L (17-59); BUN Creatinine Ratio 21.4 (6-22); Bilirubin Total 0.3 mg/dL (0.2-1.3); Blood Urea Nitrogen 15 mg/dL (9-20); Calcium 9.3 mg/dL (8.4-10.2); Carbon Dioxide 35 mmol/L (22-32); Chloride 98 mmol/L (98-107); Estimated Glomerular Filt Rate > 60.0 mL/min (>60); Globulin 3.7 g/dL (1.7-4.1); Glucose 90 mg/dL (70-100); HEMOLYSIS < 15 (0-50); Potassium 4.3 mmol/L (3.4-5.1); Sodium 142 mmol/L (137-145); Total Protein 7.5 g/dL (6.3-8.2)
[2017-12-13 08:15] VITALS: O2SAT 96
[2017-12-13] MEDS: ACETAMINOPHEN 325 MG TABLET 975 MG PO ×2 (09:37→20:29)
[2017-12-13] MEDS: ENOXAPARIN 40 MG/0.4 ML SYRINGE SUBCUT (09:38)
[2017-12-13] MEDS: DOCUSATE 100 MG CAPSULE PO ×2 (09:38→20:31)
[2017-12-13] MEDS: METHADONE 10 MG TABLET 20 MG PO ×2 (09:39→20:31)
--- NOTE | 2017-12-13 11:15 | CM.DPC ---
DCP/continued: Reviewed chart on 12-12-17. Confirmed with Dr. Porter that patient requiring 4 weeks of IV abx. DOUBLE BOTTOM DRIVER met with patient explained role. Patient alert and oriented with contact precautions in place at time of visit. Patient actively admits to using heroin on daily basis (IV) before admit. Patient currently on methadone in hospital. Patient made aware that he will need long-term IV antibiotics. Patient also aware that he will not be able to do as outpatient because of active IVDU. Patient agreeable to SNF if one can be found. Patient has no preference but requests that CM team attempt [facility]. [employer] list sent from [place] and SILVA/Naty provided with list and will start faxing to facilities. The following facilities that have been faxed are: [facility], [facility], [facility], [place], [facility], [facility]), [facility]. As of 12-13-17 at noon only one facility has responded with a no and that has been [facility] in [place]. P: CM team to follow up with facilities within the next 24hrs to determine if they can accept or if they decline. MD and CM Principal Strategist aware of difficulty finding SNF placement for active IVDU. ARSH Pena
--- NOTE | 2017-12-13 11:34 | PT.IPTN ---
Current Diagnoses Methicillin resistant Staphylococcus aureus infection, unspecified site (12/07/17) Opioid use, unspecified with withdrawal (12/07/17) Other psychoactive substance abuse, uncomplicated (12/07/17) Pyogenic arthritis, unspecified (12/07/17) Surgery Performed Operation Date: 12/07/17 19:00 Actual Procedures p Incision and Drainage Knee with lavage irrigation(Right) - Hansel Gagnon MD Physical Therapy Treatment Note M2 PT-IP Current Condition Start: 12/08/17 12:06 Freq: NEEDED Status: Active Protocol: Document 12/13/17 11:19 SA (Rec: 12/13/17 11:34 SA [email or web address]) Physical Therapy Current Condition Current Condition Evaluation Date 12/08/17 Treatment Diagnosis R septic knee s/p I&D Onset Date 12/07/17 Precautions Other Precautions contact precautions R knee sepsis h/o IV drug use Weight Bearing Status Weight Bearing Status Weight Bear as Tolerated Allowed Weight Bearing Amount (enter % WBAT as per 12/12 progress or #) (%) note M3 PT-IP Subjective Start: 12/08/17 12:06 Freq: NEEDED Status: Active Protocol: Document 12/13/17 11:19 SA (Rec: 12/13/17 11:34 [email or web address]) Subjective Physical Therapy Visit Type Type Treatment Note Visit Start Time 09:30 Visit Stop Time 09:55 Total Visit Minutes 25 Notes WBAT and ROM as tolerated as per note 12/12 Physical Therapy Visit Comments Patient Comments Pt tired/groggy this AM but agreeable to get OOB for ambulation and ROM exercise. Therapy Pain Assessment Pain When Pain Assessed During Mobility Pain Present Pain Present Pain Reported Location Right Knee Intensity 3 Scale Used Numeric (1 - 10) M4 PT-IP Mobility and Gait Start: 12/08/17 12:06 Freq: NEEDED Status: Active Protocol: Document 12/13/17 11:19 SA (Rec: 12/13/17 11:34 SA [email or web address]) PT-Bed Mobility Assessment Supine to Sit Supine to Sit Independent Sit to Supine Sit to Supine Independent Scooting Scooting to Edge of Bed Independent PT-Transfer Assessment Sit to and From Stand Sit to and from Stand Independent Equipment Transfer Assistive Device Axillary Crutches Transfers Transfer Destination Bed Transfer Technique Stand Step Pivot Transfer Ability Level of Assist Standby Assistance Comments Mobility Comments Pt able to put partial weight through RLE with mobility tasks Gait Assessment Gait Gait Assistance Required: Standby Assistance Distance (Feet) 80 Assistive Devices Assistive Device Axillary Crutches Orthotic/Prosthetic Devices or Brace: No Gait Deviations General Gait Pattern Within Normal Limits Factors Limiting Gait Function Factors Limiting Gait Function Decreased Activity Tolerance Decreased Strength Comments Gait Comments Pt limits WBing through RLE, and rates R knee pain as 3/10 with Wbing tasks. M5 PT-IP Objective Assessments Start: 12/08/17 12:06 Freq: NEEDED Status: Active Protocol: Document 12/08/17 10:34 AB (Rec: 12/08/17 12:54 AB [id number]) Orientation Orientation/Cognition Level of Alertness Alert Orientation Name Age Birthday Month Date Year Day of Week Place Situation Gross Range of Motion Lower Extremity ROM Assessment Right Impaired Impairments decrease R knee flexion with increrase tightness/muscle guarding with PROM Strength Lower Extremity Strength Assessment Right Impaired Knee 3-/5 M6 PT-IP Treatment Start: 12/08/17 12:06 Freq: NEEDED Status: Active Protocol: Document 12/13/17 11:19 SA (Rec: 12/13/17 11:34 SA [email or web address]) Physical Therapy Treatment Exercises Exercises Ankle Pumps Gluteal Sets Quad Sets Heel Slides Seated Knee Flexion/Extension Other Treatments Other Treatment Performed Pt completed seated active R knee FLex/EXT M7 PT-IP Assessment and Plan Start: 12/08/17 12:06 Freq: NEEDED Status: Active Protocol: Document 12/13/17 11:19 SA (Rec: 12/13/17 11:34 SA [email or web address]) PT Summary Assessment and Plan Potential Rehabilitation Potential Good Summary Progress Towards Goals Progressing Toward Goals Goals Bed Mobility Goal Independent Transfer Goal Independent Gait Goal Independent Gait Distance 200 Other Goals up/down 6 steps using bilateral crutches SBA Days to Meet Goals 3 Frequency of Treatment Frequency Of Treatment Once a Day Treatment Plan Other Recommendations and Next Treatment Stair and gait training Focus Recommendations To Nursing Amount of Assist Needed 1 Person Assist Discharge Recommendations PT Discharge Recommendations Home with Assistance Outpatient PT Equipment Needed for Home Before bilateral axillary crutches ( Discharge available now, prescription is written)
--- NOTE | 2017-12-13 12:41 | P.PN_ITS ---
Subjective Date Patient Seen: 12/13/17 Interval history: No specific complaints. Patient has had visitors in the evening. Nursing expressed concerns regarding activity in the room. He denies shortness of breath, significant pain, diarrhea, constipation, or nausea Exam Vital Signs (past 8 hours): - 12/13/17 08:15 Pulse Oximetry 96 Oxygen Delivery Method Room Air Oxygen Flow Rate 0 Narrative Exam Narrative: Sleepy but arousable Lungs: clear to auscultation CV: RRR nl Sl S2 3/6 NICK Abd: soft/ non tender/ non distended Ext: right knee with dressing in place Objective Labs Result Diagrams: 12/13/17 05:10 12/13/17 05:10 Labs: Laboratory Results - last 24 hr 12/13/17 12/13/17 05:10 05:10 WBC 9.0 RBC 4.01 L Hgb 11.2 L Hct 33.6 L MCV 83.9 MCH 27.9 MCHC 33.3 RDW 15.7 H Plt Count 533 H Neut % (Auto) 62.4 Lymph % (Auto) 22.4 L [place] % (Auto) 8.7 Eos % (Auto) 5.9 H Baso % (Auto) 0.6 Neut # (Auto) 5600 Sodium 142 Potassium 4.3 Chloride 98 Carbon Dioxide 35 H BUN 15 Creatinine 0.70 Estimated GFR > 60.0 BUN/Creatinine Ratio 21.4 Glucose 90 Calcium 9.3 Total Bilirubin 0.3 AST 37 ALT 55 Alkaline Phosphatase 86 Total Protein 7.5 Albumin 3.8 Globulin 3.7 Albumin/Globulin Ratio 1.0 Assessment & Plan (1) MRSA infection: Problem details: Daptomycin for 4 weeks, then 2 weeks oral antibiotics ( high dose Bactrim recommended) Infectious Disease discouraged the use of Zyvox as 4 weeks or more will result in thrombocytopenia and is not recommended Current visit: Yes Status: Acute (2) Septic joint of right knee joint: Problem details: Discussed with ID. Recommendations is for 4 weeks of IV Daptomycin and then switching to two weeks of oral antbiotics. Zyvox not recommended. Patient was unable to obtain therapeutic levels of vancomycin. Recheck labs in am Qualifiers: Septic arthritis organism: due to unspecified organism Qualified Code(s ): M00.9 - Pyogenic arthritis, unspecified Current visit: Yes Status: Acute (3) Drug abuse, IV: Problem details: On methadone, will decrease dose to 20 mg twice daily Will discontinue IV pain medications and manage with oral meds only Current visit: Yes Status: Acute Plan: Assessment/Plan Narrative: Still awaiting placement
--- NOTE | 2017-12-13 13:35 | CM.DPC ---
Nilam/Dequan called and declined patient
[2017-12-13 15:00] VITALS: O2SAT 97
--- NOTE | 2017-12-13 15:32 | PC.NURSE ---
day shift pt moved from room 229 to 223. Pt took all belongings with him. moved in bed.
[2017-12-13 15:35] VITALS: BP 120/67; PULSE 77; RESP 16; TEMP 36.8; O2SAT 97
--- NOTE | 2017-12-13 16:05 | P.PN_ITS ---
Subjective Date Patient Seen: 12/13/17 Time Patient Seen: 15:57 Interval history: POD #6 status post right knee I+D done arthroscopically by Dr. Gagnon. Patient is laying in bed in no acute distress. He reports his pain is well managed. He denies any SOB, chest pain, nausea, vomiting, fever or chills. Exam Vital Signs (past 8 hours): - 12/13/17 08:15 Pulse Oximetry 96 Oxygen Delivery Method Room Air Oxygen Flow Rate 0 Narrative Exam Narrative: Patient is AOx3. Radial and dorsalis pedis pulses 2+ and symmetric. Sensation to light touch intact bilaterally. R knee dressing CDI. Muscle strength 5/5 in dorsiflexion, plantarflexion and bone density technician bilaterally. Calfs are soft, non tender and compressible bilaterally. Objective Labs Result Diagrams: 12/13/17 05:10 12/13/17 05:10 Labs: Laboratory Results - last 24 hr 12/13/17 12/13/17 05:10 05:10 WBC 9.0 RBC 4.01 L Hgb 11.2 L Hct 33.6 L MCV 83.9 MCH 27.9 MCHC 33.3 RDW 15.7 H Plt Count 533 H Neut % (Auto) 62.4 Lymph % (Auto) 22.4 L [place] % (Auto) 8.7 Eos % (Auto) 5.9 H Baso % (Auto) 0.6 Neut # (Auto) 5600 Sodium 142 Potassium 4.3 Chloride 98 Carbon Dioxide 35 H BUN 15 Creatinine 0.70 Estimated GFR > 60.0 BUN/Creatinine Ratio 21.4 Glucose 90 Calcium 9.3 Total Bilirubin 0.3 AST 37 ALT 55 Alkaline Phosphatase 86 Total Protein 7.5 Albumin 3.8 Globulin 3.7 Albumin/Globulin Ratio 1.0 Assessment & Plan Post-op Postoperative Procedures Operation Date: 12/07/17 19:00 Actual Procedures Side Surgeon p Incision and Drainage Knee with lavage irrigation Right Hansel Gagnon MD Postoperative day: 6 Postoperative status: doing well Postoperative plan narrative: Continue pain management. Continue mobilizing with PT. Discharge on antibiotics per Hospitalist orders.
[2017-12-14 01:01] VITALS: O2SAT 98
[2017-12-14 01:02] VITALS: BP 118/69; PULSE 76; RESP 16; TEMP 36.7; O2SAT 100
[2017-12-14 08:00] VITALS: BP 111/61; PULSE 74; RESP 14; TEMP 36.7; O2SAT 100
[2017-12-14 09:05] VITALS: O2SAT 100
[2017-12-14] MEDS: ACETAMINOPHEN 325 MG TABLET 975 MG PO ×3 (09:12→20:48)
[2017-12-14] MEDS: DOCUSATE 100 MG CAPSULE PO ×2 (09:13→20:48)
[2017-12-14] MEDS: ENOXAPARIN 40 MG/0.4 ML SYRINGE SUBCUT (09:14)
[2017-12-14] MEDS: METHADONE 10 MG TABLET 20 MG PO ×2 (09:14→20:48)
--- NOTE | 2017-12-14 11:51 | P.PN_ITS ---
Subjective Date Patient Seen: 12/14/17 Interval history: Patient has no specific complaints. He denies nausea, diarrhea , constipation or significant pain Exam Vital Signs (past 8 hours): - 12/14/17 08:00 12/14/17 09:05 Temperature 98.1 F Pulse Rate 74 Respiratory Rate 14 Blood Pressure 111/61 Pulse Oximetry 100 100 Oxygen Delivery Method Room Air Oxygen Flow Rate 0 Narrative Exam Narrative: Awake Lungs: clear to auscultation CV:RRR nl Sl S2 2/6 NICK Abd: soft/nontender Ext: right knee with dressing in place Right arm with open lesion, no drainage Objective Labs Result Diagrams: 12/13/17 05:10 12/13/17 05:10 Assessment & Plan (1) MRSA infection: Problem details: Daptomycin for 4 weeks, then 2 weeks oral antibiotics ( high dose Bactrim recommended) Infectious Disease discouraged the use of Zyvox as 4 weeks or more will result in thrombocytopenia and is not recommended Current visit: Yes Status: Acute (2) Septic joint of right knee joint: Problem details: Discussed with ID. Recommendations is for 4 weeks of IV Daptomycin and then switching to two weeks of oral antbiotics. Zyvox not recommended. Patient was unable to obtain therapeutic levels of vancomycin. Recheck labs in am Qualifiers: Septic arthritis organism: due to unspecified organism Qualified Code(s ): M00.9 - Pyogenic arthritis, unspecified Current visit: Yes Status: Acute (3) Drug abuse, IV: Problem details: On methadone, will decrease dose to 20 mg twice daily Will discontinue IV pain medications and manage with oral meds only Current visit: Yes Status: Acute Plan: Assessment/Plan Narrative: Await placement
--- NOTE | 2017-12-14 14:55 | PT.IPTN ---
Current Diagnoses Methicillin resistant Staphylococcus aureus infection, unspecified site (12/07/17) Opioid use, unspecified with withdrawal (12/07/17) Other psychoactive substance abuse, uncomplicated (12/07/17) Pyogenic arthritis, unspecified (12/07/17) Surgery Performed Operation Date: 12/07/17 19:00 Actual Procedures p Incision and Drainage Knee with lavage irrigation(Right) - Hansel Gagnon MD Physical Therapy Treatment Note M2 PT-IP Current Condition Start: 12/08/17 12:06 Freq: NEEDED Status: Active Protocol: Document 12/13/17 11:19 SA (Rec: 12/13/17 11:34 SA [email or web address]) Physical Therapy Current Condition Current Condition Evaluation Date 12/08/17 Treatment Diagnosis R septic knee s/p I&D Onset Date 12/07/17 Precautions Other Precautions contact precautions R knee sepsis h/o IV drug use Weight Bearing Status Weight Bearing Status Weight Bear as Tolerated Allowed Weight Bearing Amount (enter % WBAT as per 12/12 progress or #) (%) note M3 PT-IP Subjective Start: 12/08/17 12:06 Freq: NEEDED Status: Active Protocol: Document 12/14/17 14:41 SA (Rec: 12/14/17 14:54 [id number]) Subjective Physical Therapy Visit Type Type Treatment Note Visit Start Time 13:40 Visit Stop Time 14:05 Total Visit Minutes 25 Notes Pt states he is tired but willing to work, denies knee pain at rest. 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 Therapy Pain Assessment Pain When Pain Assessed During Mobility Pain Present Pain Present Pain Reported Location Right Knee Intensity 2 Scale Used Numeric (1 - 10) M4 PT-IP Mobility and Gait Start: 12/08/17 12:06 Freq: NEEDED Status: Active Protocol: Document 12/14/17 14:41 SA (Rec: 12/14/17 14:54 [id number]) PT-Bed Mobility Assessment Supine to Sit Supine to Sit Independent Sit to Supine Sit to Supine Independent Scooting Scooting to Edge of Bed Independent PT-Transfer Assessment Sit to and From Stand Sit to and from Stand Independent Equipment Transfer Assistive Device Axillary Crutches Transfers Transfer Destination Chair Transfer Technique Stand Step Pivot Transfer Ability Level of Assist Standby Assistance Comments Mobility Comments Increased WBing through RLE tolerated with mobility tasks today. Gait Assessment Gait Gait Assistance Required: Standby Assistance Distance (Feet) 110 Assistive Devices Assistive Device Axillary Crutches Orthotic/Prosthetic Devices or Brace: No Gait Deviations General Gait Pattern Within Normal Limits Factors Limiting Gait Function Factors Limiting Gait Function Decreased Activity Tolerance Decreased Strength Comments Gait Comments Pt also complete d short distance ambulation in room with no crutches and SBA, about 30 feet. M5 PT-IP Objective Assessments Start: 12/08/17 12:06 Freq: NEEDED Status: Active Protocol: Document 12/08/17 10:34 AB (Rec: 12/08/17 12:54 AB [id number]) Orientation Orientation/Cognition Level of Alertness Alert Orientation Name Age Birthday Month Date Year Day of Week Place Situation Gross Range of Motion Lower Extremity ROM Assessment Right Impaired Impairments decrease R knee flexion with increrase tightness/muscle guarding with PROM Strength Lower Extremity Strength Assessment Right Impaired Knee 3-/5 M6 PT-IP Treatment Start: 12/08/17 12:06 Freq: NEEDED Status: Active Protocol: Document 12/14/17 14:41 SA (Rec: 12/14/17 14:54 [id number]) Physical Therapy Treatment Exercises Exercises Ankle Pumps Gluteal Sets Quad Sets Heel Slides Short Arc Quads Seated Knee Flexion/Extension Other Treatments Other Treatment Performed Standing heel/toe raises and marching with limited SLS on RLE. M7 PT-IP Assessment and Plan Start: 12/08/17 12:06 Freq: NEEDED Status: Active Protocol: Document 12/14/17 14:41 SA (Rec: 12/14/17 14:54 [id number]) PT Summary Assessment and Plan Potential Rehabilitation Potential Good Summary Progress Towards Goals Progressing Toward Goals Assessment Summary Pt tolerating increased WBing on RLE well, able to ambulate with no AD for short distance in room. Goals Bed Mobility Goal Independent Transfer Goal Independent Gait Goal Independent Treatment Plan Other Recommendations and Next Treatment Gait progression and stair Focus training Recommendations To Nursing Amount of Assist Needed 1 Person Assist Discharge Recommendations Equipment Needed for Home Before bilateral axillary crutches ( Discharge available now, prescription is written)
[2017-12-14 15:00] VITALS: O2SAT 99
[2017-12-14 15:40] VITALS: BP 113/61; PULSE 70; RESP 70; TEMP 36.3; O2SAT 98
[2017-12-14] MEDS: MAGNESIUM HYDROXIDE 30 ML UDC PO (20:48)
[2017-12-15 05:42] VITALS: BP 110/66; PULSE 76; RESP 16; TEMP 37; O2SAT 100
[2017-12-15 06:21] VITALS: O2SAT 100
[2017-12-15 07:00] VITALS: O2SAT 100
[2017-12-15 08:00] VITALS: BP 110/65; PULSE 72; RESP 16; TEMP 36.6; O2SAT 100
[2017-12-15] MEDS: METHADONE 10 MG TABLET 20 MG PO ×2 (10:14→20:12)
[2017-12-15] MEDS: ACETAMINOPHEN 325 MG TABLET 975 MG PO ×3 (10:14→20:11)
[2017-12-15] MEDS: ENOXAPARIN 40 MG/0.4 ML SYRINGE SUBCUT (10:15)
[2017-12-15] MEDS: DOCUSATE 100 MG CAPSULE PO ×2 (10:15→20:12)
--- NOTE | 2017-12-15 11:17 | PM.PNPO.1 ---
Subjective Date Patient Seen: 12/15/17 Time Patient Seen: 11:17 Interval history: POD #8 status post I and D with Dr. Gagnon. Patient has no new signs of redness or changes in the right knee. Sutures are still in place. Exam Vital Signs (past 8 hours): - 12/15/17 05:42 12/15/17 06:21 Temperature 98.6 F Pulse Rate 76 Respiratory Rate 16 Blood Pressure 110/66 Pulse Oximetry 100 100 Oxygen Delivery Method Room Air Oxygen Flow Rate 0 Narrative Exam Narrative: Patient lying in bed in no acute distress. He is alert and oriented x3. Right knee no erythema. There is expected postoperative swelling. Sutures still in place. Calves are soft, compressible, nontender bilaterally. Objective Labs Result Diagrams: 12/13/17 05:10 12/13/17 05:10 Labs: Laboratory Results - last 24 hr 12/06/17 23:43 Fluid Crystals Assessment & Plan Post-op (1) MRSA infection: Problem details: Daptomycin for 4 weeks, then 2 weeks oral antibiotics ( high dose Bactrim recommended) Infectious Disease discouraged the use of Zyvox as 4 weeks or more will result in thrombocytopenia and is not recommended Current Visit: Yes Status: Acute Postoperative Procedures Operation Date: 12/07/17 19:00 Actual Procedures Side Surgeon p Incision and Drainage Knee with lavage irrigation Right Hansel Gagnon MD POD #8 status post I and D with Dr. Gagnon. Sutures will need to removed at postop day 10-14 or prior to discharge. Continue to monitor knee. Hospitalist is managing infection and pain management.
--- NOTE | 2017-12-15 14:14 | P.PN_ITS ---
Subjective Date Patient Seen: 12/15/17 Time Patient Seen: 08:11 Interval history: History of present illness Follow up on patient with a right knee septic joint with history of active IV drug abuse prior to admission Review of systems No chest pain or shortness of breath no nausea Patient notes the right knee pain is tolerable and he is doing better day by day Exam Vital Signs (past 8 hours): - 12/15/17 06:21 12/15/17 07:00 12/15/17 08:00 Temperature 97.9 F Pulse Rate 72 Respiratory Rate 16 Blood Pressure 110/65 Pulse Oximetry 100 100 100 Oxygen Delivery Method Room Air Oxygen Flow Rate 0 Narrative Exam Narrative: General appearance he is awake and alert no apparent distress Psychiatric well oriented to time place person mood is pleasant affect is appropriate Respiratory clear to auscultation with good airflow no wheezes crackles Cardiovascular regular rate rhythm no murmurs +3 pulses to extremities GI is benign soft nontender positive bowel sounds no bruits Neurologic no focal neurologic changes cranial nerves 2-12 grossly intact Objective Labs Result Diagrams: 12/13/17 05:10 12/13/17 05:10 Labs: Laboratory Results - last 24 hr 12/06/17 23:43 Fluid Crystals Assessment & Plan Plan: Assessment/Plan Narrative: Right knee septic joint with MRSA MRSA infection: Daptomycin for 4 weeks, then 2 weeks oral antibiotics ( high dose Bactrim recommended) Infectious Disease discouraged the use of Zyvox as 4 weeks or more will result in thrombocytopenia and is not recommended Drug abuse, IV heroin: On methadone, dose decreased to 20 mg twice daily Patient's family in [facility] may be placing patient in a inpatient rehab facility when patient is stable to do so Time Spent With Patient Time with patient: 25 - 35 minutes (25 min)
--- NOTE | 2017-12-15 14:43 | CM.DPC ---
SNF's faxed and f/u calls Monday12/15/17 1. [facility]/NO 2. [facility]/Re-faxed @[phone] 3. [facility]/Left Message @1420 4. [facility]/Left Message @[phone] 5. [facility]/Left Message @[phone] 6. [facility]/NO 7. [facility]/Left Message @[phone] 8. [facility]/NO 9. [facility]/NO 10. [facility]/NO
[2017-12-15 15:00] VITALS: O2SAT 99
--- NOTE | 2017-12-15 15:52 | PT.IPTN ---
Current Diagnoses Methicillin resistant Staphylococcus aureus infection, unspecified site (12/07/17) Opioid use, unspecified with withdrawal (12/07/17) Other psychoactive substance abuse, uncomplicated (12/07/17) Pyogenic arthritis, unspecified (12/07/17) Surgery Performed Operation Date: 12/07/17 19:00 Actual Procedures p Incision and Drainage Knee with lavage irrigation(Right) - Hansel Gagnon MD Physical Therapy Treatment Note M2 PT-IP Current Condition Start: 12/08/17 12:06 Freq: NEEDED Status: Active Protocol: Document 12/13/17 11:19 SA (Rec: 12/13/17 11:34 SA [id number]) Physical Therapy Current Condition Current Condition Evaluation Date 12/08/17 Treatment Diagnosis R septic knee s/p I&D Onset Date 12/07/17 Precautions Other Precautions contact precautions R knee sepsis h/o IV drug use Weight Bearing Status Weight Bearing Status Weight Bear as Tolerated Allowed Weight Bearing Amount (enter % WBAT as per 12/12 progress or #) (%) note M3 PT-IP Subjective Start: 12/08/17 12:06 Freq: NEEDED Status: Active Protocol: Document 12/15/17 15:37 SA (Rec: 12/15/17 15:52 SA [id number]) Subjective Physical Therapy Visit Type Type Treatment Note Visit Start Time 15:05 Visit Stop Time 15:30 Total Visit Minutes 25 Notes Pt seated up at EOB and agreeale to PT this afternoon. 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 Therapy Pain Assessment Pain When Pain Assessed During Mobility Pain Present Pain Present Denied Pain M4 PT-IP Mobility and Gait Start: 12/08/17 12:06 Freq: NEEDED Status: Active Protocol: Document 12/15/17 15:37 SA (Rec: 12/15/17 15:52 SA [id number]) PT-Bed Mobility Assessment Supine to Sit Supine to Sit Independent Sit to Supine Sit to Supine Independent Scooting Scooting to Edge of Bed Independent PT-Transfer Assessment Sit to and From Stand Sit to and from Stand Independent Equipment Transfer Assistive Device Axillary Crutches Transfers Transfer Destination Chair Transfer Technique Stand Step Pivot Transfer Ability Level of Assist Independent Comments Mobility Comments Increased WBing with mobility, did not use crutches today. Gait Assessment Gait Gait Assistance Required: Contact Guard Assist Distance (Feet) 200 Assistive Devices Assistive Device None Orthotic/Prosthetic Devices or Brace: No Gait Deviations General Gait Pattern Step-to Gait Factors Limiting Gait Function Factors Limiting Gait Function Decreased Strength Limited Range of Motion Comments Gait Comments Increased distance with ambulation without cruches, cues for even WBING and step length. M5 PT-IP Objective Assessments Start: 12/08/17 12:06 Freq: NEEDED Status: Active Protocol: Document 12/08/17 10:34 AB (Rec: 12/08/17 12:54 AB [id number]) Orientation Orientation/Cognition Level of Alertness Alert Orientation Name Age Birthday Month Date Year Day of Week Place Situation Gross Range of Motion Lower Extremity ROM Assessment Right Impaired Impairments decrease R knee flexion with increrase tightness/muscle guarding with PROM Strength Lower Extremity Strength Assessment Right Impaired Knee 3-/5 M6 PT-IP Treatment Start: 12/08/17 12:06 Freq: NEEDED Status: Active Protocol: Document 12/15/17 15:37 SA (Rec: 12/15/17 15:52 [id number]) Physical Therapy Treatment Other Treatments Other Treatment Performed Standing heel/toe raises, marching, seated LAQs, ankle pumps and knee flexion stretching. M7 PT-IP Assessment and Plan Start: 12/08/17 12:06 Freq: NEEDED Status: Active Protocol: Document 12/15/17 15:37 SA (Rec: 12/15/17 15:52 [id number]) PT Summary Assessment and Plan Potential Rehabilitation Potential Good Summary Progress Towards Goals Progressing Toward Goals Assessment Summary Pt tolerating increased avtivity but very poor at initiating activity. Goals Bed Mobility Goal Independent Transfer Goal Independent Gait Goal Independent Gait Distance 200 Days to Meet Goals 3 Frequency of Treatment Frequency Of Treatment Once a Day Treatment Plan Other Recommendations and Next Treatment Progress to stair training. Focus Recommendations To Nursing Amount of Assist Needed Standby Assistance Discharge Recommendations Equipment Needed for Home Before re-assess need of crutches Discharge closer to d/c
[2017-12-15] MEDS: NICOTINE 14 PATCH 14 MG TOP (16:00)
[2017-12-15 20:32] VITALS: BP 108/53; PULSE 76; RESP 16; TEMP 36.3; O2SAT 100
[2017-12-16] VITALS (8 sets, daily range): BP systolic 89–121; BP diastolic 51–65; PULSE 62–77; RESP 16–18; TEMP 36.7–36.8; O2SAT 94–100
[2017-12-16] MEDS: DOCUSATE 100 MG CAPSULE PO (09:43)
[2017-12-16] MEDS: NICOTINE 14 PATCH 14 MG TOP (09:45)
[2017-12-16] MEDS: ENOXAPARIN 40 MG/0.4 ML SYRINGE SUBCUT (09:46)
[2017-12-16] MEDS: METHADONE 10 MG TABLET 20 MG PO ×2 (09:46→21:12)
[2017-12-16] MEDS: ACETAMINOPHEN 325 MG TABLET 975 MG PO ×3 (09:46→21:06)
--- NOTE | 2017-12-16 15:40 | PT.IPTN ---
Current Diagnoses Methicillin resistant Staphylococcus aureus infection, unspecified site (12/07/17) Opioid use, unspecified with withdrawal (12/07/17) Other psychoactive substance abuse, uncomplicated (12/07/17) Pyogenic arthritis, unspecified (12/07/17) Surgery Performed Operation Date: 12/07/17 19:00 Actual Procedures p Incision and Drainage Knee with lavage irrigation(Right) - Hansel Gagnon MD Physical Therapy Treatment Note M2 PT-IP Current Condition Start: 12/08/17 12:06 Freq: NEEDED Status: Active Protocol: Document 12/13/17 11:19 SA (Rec: 12/13/17 11:34 SA [id number]) Physical Therapy Current Condition Current Condition Evaluation Date 12/08/17 Treatment Diagnosis R septic knee s/p I&D Onset Date 12/07/17 Precautions Other Precautions contact precautions R knee sepsis h/o IV drug use Weight Bearing Status Weight Bearing Status Weight Bear as Tolerated Allowed Weight Bearing Amount (enter % WBAT as per 12/12 progress or #) (%) note M3 PT-IP Subjective Start: 12/08/17 12:06 Freq: NEEDED Status: Active Protocol: Document 12/16/17 15:40 AB (Rec: 12/16/17 16:50 AB [id number]) Subjective Physical Therapy Visit Type Type Treatment Note Visit Start Time 15:40 Visit Stop Time 16:00 Total Visit Minutes 20 Number of CREOSOTING ENGINEER Visits 0 Physical Therapy Visit Comments Patient Comments I can walk with you Therapy Pain Assessment Pain Present Pain Present Denied Pain Location Right Knee Scale Used stated more of tightness than pain Description Tightness M4 PT-IP Mobility and Gait Start: 12/08/17 12:06 Freq: NEEDED Status: Active Protocol: Document 12/16/17 15:40 AB (Rec: 12/16/17 16:50 AB [id number]) PT-Bed Mobility Assessment Supine to Sit Supine to Sit Independent Sit to Supine Sit to Supine Independent Scooting Scooting to Edge of Bed Independent Scooting Up and Down in Bed Independent PT-Transfer Assessment Sit to and From Stand Sit to and from Stand Independent Equipment Transfer Assistive Device None Gait Belt Orthotic/Prosthetic Devices or Brace: No Gait Assessment Gait Gait Assistance Required: Standby Assistance Distance (Feet) 200 Able to Maintain Weight Bearing Status Yes During Gait Assistive Devices Assistive Device None Gait Belt Orthotic/Prosthetic Devices or Brace: No Gait Deviations General Gait Pattern Antalgic Factors Limiting Gait Function Factors Limiting Gait Function Limited Range of Motion Poor Balance Comments Gait Comments pt ambulated in hallway without AD SBA. presents with antalgic gait but without LOB . Stair Climbing Assessment Evaluation Level of Assist On Stairs Standby Assistance Devices Stair Climbing Assistive Devices None Left Railing Right Railing Technique/Endurance Stair Climbing Direction Ascend and Descend Stair Climbing Technique Step Over Step Step to Step Number of Steps Climbed 3 Query Text: Stair Climbing Set # Repetitions (reps) 4 Comments Stair Climbing Comments pt initially completed up/down stairs using bilateral rails with step over step pattern. completed again x 3 more sets using R rail ascending step over step pattern and the L rail for descending with first attempt with step over step pattern but stated that it is difficult for R knee. educated on how to do step to step and stepping down with affected LE first and pt completed with SBA x 2 sets. PT-Balance Assessment Standing Balance and Reactions Static Standing Balance Ability Good Dynamic Standing Balance Ability Fair Device Used without AD M5 PT-IP Objective Assessments Start: 12/08/17 12:06 Freq: NEEDED Status: Active Protocol: Document 12/08/17 10:34 AB (Rec: 12/08/17 12:54 AB [id number]) Orientation Orientation/Cognition Level of Alertness Alert Orientation Name Age Birthday Month Date Year Day of Week Place Situation Gross Range of Motion Lower Extremity ROM Assessment Right Impaired Impairments decrease R knee flexion with increrase tightness/muscle guarding with PROM Strength Lower Extremity Strength Assessment Right Impaired Knee 3-/5 M6 PT-IP Treatment Start: 12/08/17 12:06 Freq: NEEDED Status: Active Protocol: Document 12/16/17 15:40 AB (Rec: 12/16/17 16:50 AB [id number]) Physical Therapy Treatment Education Education Provided Safety M7 PT-IP Assessment and Plan Start: 12/08/17 12:06 Freq: NEEDED Status: Active Protocol: Document 12/16/17 15:40 AB (Rec: 12/16/17 16:50 AB [id number]) PT Summary Assessment and Plan Potential Rehabilitation Potential Good Status of Condition at Evaluation Stable Summary Impairments Pain ROM Strength Balance Transfers Gait Activity Tolerance Progress Towards Goals Progressing Toward Goals Assessment Summary pt doing well with mobility, independent with bed mobility, SBA for transfers and ambulation without AD for safety. educated pt regarding PT goals and SBA provided more for safety and IV pole management. pt was able to ambulate without AD with no LOB. PT talked to pt regarding d/c from PT and to ambulate with nursing. Pt agreed. pt continues to have antalgic gait but will probably decrease once RLE recovers from infection. At this time, no further PT intervention indicated. Talked to pt's nurse and agreed with PT d/c and for nursing to just ambulate with pt. Goals Bed Mobility Goal Independent Transfer Goal Independent Gait Goal Independent Gait Distance 200 Days to Meet Goals 3 Frequency of Treatment Frequency Of Treatment Discharge Recommendations To Nursing Amount of Assist Needed Standby Assistance Discharge Recommendations PT Discharge Recommendations Home with Assistance Outpatient PT
--- NOTE | 2017-12-16 15:41 | PC.NURSE ---
day shift pt sleeping for most of day. Had friend visit him. After friend left, pt called RN into room and stated he was getting sick of being here and wanted to go home. Explained to pt that this would most likely be AMA d/c. Explained risks of not completing abx therapy, pt acknowledged education and then asked to have MD look into d/c as well. Pt later states he will try and stick it out. denies pain this shift, no pain meds given.
--- NOTE | 2017-12-16 16:38 | PM.PN.1 ---
Subjective Date Patient Seen: 12/16/17 Time Patient Seen: 14:38 Interval history: History of present illness Follow-up on right knee septic joint on daptomycin for 4 weeks IV and then may transition to Bactrim antibiotic orally Review of system No chest pain or shortness of breath no nausea Patient notes the right knee pain is certainly tolerable in improving every day. Patient notes less swelling to the right knee Exam Vital Signs (past 8 hours): - 12/16/17 09:40 12/16/17 16:01 Temperature 98.3 F Pulse Rate 62 Respiratory Rate 16 Blood Pressure 89/51 L Pulse Oximetry 99 100 Oxygen Delivery Method Room Air Oxygen Flow Rate 0 Narrative Exam Narrative: General appearance awake and alert no apparent distress at rest Psychiatric well oriented to time place person mood and affect is appropriate Respiratory clear to auscultation no wheezes no crackles good airflow Cardiovascular regular rate rhythm no murmurs +3 pulses to extremities GI is benign soft nontender positive bowel sounds no bruits Neurologic no focal neurologic changes cranial nerves 2-12 grossly intact Objective Labs Result Diagrams: 12/13/17 05:10 12/13/17 05:10 Assessment & Plan Plan: Assessment/Plan Narrative: Right knee septic joint with MRSA MRSA infection: Daptomycin for 4 weeks, then 2 weeks oral antibiotics (high dose Bactrim recommended) Infectious Disease discouraged the use of Zyvox as 4 weeks or more will result in thrombocytopenia and is not recommended Drug abuse, 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
--- NOTE | 2017-12-17 01:10 | PC.NURSE ---
0045 Sleeping soundly, will monitor & assess when he wakes up.
[2017-12-17 01:30] VITALS: O2SAT 97
[2017-12-17 01:40] VITALS: BP 94/48; PULSE 70; RESP 18; TEMP 36.8; O2SAT 99
--- NOTE | 2017-12-17 06:46 | PC.NURSE ---
Slept most of the night, denies any pain all shift. Will cont. POC & monitor.
[2017-12-17 07:00] VITALS: BP 114/53; PULSE 82; RESP 18; TEMP 36.7; O2SAT 100
[2017-12-17 09:30] VITALS: O2SAT 98
[2017-12-17] MEDS: DOCUSATE 100 MG CAPSULE PO (09:39)
[2017-12-17] MEDS: SODIUM CHLORIDE 0.9% FLUSH 10 ML IV (09:39)
[2017-12-17] MEDS: NICOTINE 14 PATCH 14 MG TOP (09:39)
[2017-12-17] MEDS: ENOXAPARIN 40 MG/0.4 ML SYRINGE SUBCUT (09:39)
[2017-12-17] MEDS: METHADONE 10 MG TABLET 20 MG PO ×2 (09:39→20:47)
[2017-12-17] MEDS: ACETAMINOPHEN 325 MG TABLET 975 MG PO ×3 (09:39→20:46)
--- NOTE | 2017-12-17 09:39 | PM.PNPO.1 ---
Subjective Date Patient Seen: 12/17/17 Time Patient Seen: 09:39 Interval history: The patient reports no new issues with his knee. He is comfortable. Exam Vital Signs (past 8 hours): - 12/17/17 01:40 Temperature 98.2 F Pulse Rate 70 Respiratory Rate 18 Blood Pressure 94/48 L Pulse Oximetry 99 Oxygen Delivery Method Room Air Oxygen Flow Rate 0 Narrative Exam Narrative: Right knee wound is without erythema or drainage. There is a small knee effusion. Range of motion is from full extension to 90? of flexion without pain. Objective Labs Result Diagrams: 12/13/17 05:10 12/13/17 05:10 Assessment & Plan Post-op Postoperative Procedures Operation Date: 12/07/17 19:00 Actual Procedures Side Surgeon p Incision and Drainage Knee with lavage irrigation Right Hansel Gagnon MD Postoperative day: 10 Postoperative status: doing well Postoperative status narrative: The patient is stable postoperative day 10 after open arthrotomy for septic knee arthritis with MRSA. He is currently receiving antibiotics under the guidance of the hospitalist service. Postoperative plan: routine post-op care Postoperative plan narrative: The patient may be discharged once he is cleared by the medical service. He needs his sutures out in about 2-4 days. Time Spent With Patient less than 15 minutes
--- NOTE | 2017-12-17 11:49 | PM.PN.1 ---
Subjective Date Patient Seen: 12/17/17 Time Patient Seen: 10:49 Interval history: History of present illness Follow-up on a patient with right knee septic joint related to IV drug abuse with heroin Review of systems No specific complaint no chest pain or shortness of breath no nausea Patient notes right knee pain is tolerable and effectively addressed with the medications provided Exam Vital Signs (past 8 hours): - 12/17/17 09:30 Pulse Oximetry 98 Oxygen Delivery Method Room Air Oxygen Flow Rate 0 Narrative Exam Narrative: General appearance patient appears to lay in bed all day long does not appear to be motivated to read or do anything else constructed. Psychiatric well oriented to time place person flat affect apparent Respiratory fairly clear to auscultation no wheezing crackles Cardiovascular regular rate rhythm no murmurs GI is benign and soft nontender Neurologic no focal neurologic changes cranial nerves 2-12 grossly intact Right knee exam less swelling is noted less tenderness improved but limited range of motion Objective Labs Result Diagrams: 12/13/17 05:10 12/13/17 05:10 Assessment & Plan Plan: Assessment/Plan Narrative: Right knee septic joint with MRSA MRSA infection: Daptomycin for 4 weeks, then 2 weeks oral antibiotics (high dose Bactrim recommended) Infectious Disease discouraged the use of Zyvox as 4 weeks or more will result in thrombocytopenia and is not recommended Requested patient to be out of bed for all meals And sit in a chair about 3 hr per day as tolerated Drug abuse, 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
[2017-12-17 15:00] VITALS: O2SAT 100
[2017-12-17 15:20] VITALS: BP 109/61; PULSE 67; RESP 16; TEMP 36.5; O2SAT 99
[2017-12-18] MEDS: SODIUM CHLORIDE 0.9% FLUSH 10 ML IV ×2 (00:01→08:06)
--- NOTE | 2017-12-18 02:44 | PC.NURSE ---
Patient is moderate fall risk score. Charting keeps defaulting back to high risk despite moderate risk scores.
[2017-12-18 05:55] VITALS: BP 144/65; PULSE 67; RESP 16; TEMP 36.8; O2SAT 98
--- NOTE | 2017-12-18 07:33 | P.PN_ITS ---
Subjective Date Patient Seen: 12/18/17 Time Patient Seen: 07:31 Interval history: POD #11 s/p I+D of right knee with Dr. Gagnon. No changes in knee. Exam Vital Signs (past 8 hours): - 12/18/17 05:55 Temperature 98.2 F Pulse Rate 67 Respiratory Rate 16 Blood Pressure 144/65 H Pulse Oximetry 98 Oxygen Delivery Method Room Air Oxygen Flow Rate 0 Narrative Exam Narrative: Patient lying in bed in NAD. Sutures not ready for removal today. No changes in knee since previous exam. Objective Labs Result Diagrams: 12/13/17 05:10 12/13/17 05:10 Assessment & Plan Post-op (1) Septic joint of right knee joint: Problem details: Discussed with ID. Recommendations is for 4 weeks of IV Daptomycin and then switching to two weeks of oral antbiotics. Zyvox not recommended. Patient was unable to obtain therapeutic levels of vancomycin. Qualifiers: Septic arthritis organism: due to unspecified organism Qualified Code(s ): M00.9 - Pyogenic arthritis, unspecified Current Visit: Yes Status: Acute (2) MRSA infection: Problem details: Daptomycin for 4 weeks, then 2 weeks oral antibiotics ( high dose Bactrim recommended) Infectious Disease discouraged the use of Zyvox as 4 weeks or more will result in thrombocytopenia and is not recommended Current Visit: Yes Status: Acute Postoperative Procedures Operation Date: 12/07/17 19:00 Actual Procedures Side Surgeon p Incision and Drainage Knee with lavage irrigation Right Hansel Gagnon MD Sutures not ready for removal today, possibly in next 1-2 days.
[2017-12-18 08:00] VITALS: BP 112/68; PULSE 72; RESP 16; TEMP 36.9; O2SAT 98
[2017-12-18] MEDS: NICOTINE 14 PATCH 14 MG TOP (08:05)
[2017-12-18] MEDS: DOCUSATE 100 MG CAPSULE PO (08:05)
[2017-12-18] MEDS: ACETAMINOPHEN 325 MG TABLET 975 MG PO ×3 (08:05→21:00)
[2017-12-18] MEDS: ENOXAPARIN 40 MG/0.4 ML SYRINGE SUBCUT (08:05)
[2017-12-18] MEDS: METHADONE 10 MG TABLET 20 MG PO ×2 (08:05→21:00)
[2017-12-18 08:47] LABS: Add Manual Diff / Slide Review NO; Basophils Percent Auto 0.8 % (0-2); Hematocrit 35.8 % (41-53); Hemoglobin 12.2 g/dL (13.5-17.5); Lymphocytes Percent Auto 24.2 % (25-40); Mean Corpuscular Hemoglobin 28.3 PG (26-34); Mean Corpuscular Volume 83.3 fL (80-100); Monocytes Percent Auto 8.3 % (3-14); Neutrophils Absolute Auto 5000 /uL (3000-5900); Neutrophils Percent Auto 60.7 % (50-75); Platelet Count 467 X10^3/uL (150-400); White Blood Cell Count 8.3 X10^3/uL (4.5-11.0)
[2017-12-18 08:59] LABS: Alanine Aminotransferase 73 IU/L (21-72); Albumin Globulin Ratio 1.1 (1.0-2.8); Alkaline Phosphatase 83 U/L (38-126); Aspartate Aminotransferase 54 IU/L (17-59); Bilirubin Total 0.3 mg/dL (0.2-1.3); Blood Urea Nitrogen 16 mg/dL (9-20); Calcium 9.7 mg/dL (8.4-10.2); Carbon Dioxide 33 mmol/L (22-32); Chloride 100 mmol/L (98-107); Estimated Glomerular Filt Rate > 60.0 mL/min (>60); Globulin 3.6 g/dL (1.7-4.1); Glucose 83 mg/dL (70-100); HEMOLYSIS < 15 (0-50); Potassium 4.4 mmol/L (3.4-5.1); Sodium 144 mmol/L (137-145); Total Protein 7.6 g/dL (6.3-8.2)
[2017-12-18 10:16] VITALS: O2SAT 98
--- NOTE | 2017-12-18 14:15 | PC.NURSE ---
Pt calm and cooperative. Mostly lying on bed, taking notes and thinking about future plans. Denies pain. Right knee has bilat incisions with sutures - no signs of infection observed - wound edges well approximated. PICC line functioning well .
[2017-12-18 15:00] VITALS: O2SAT 100
--- NOTE | 2017-12-18 15:41 | CM.DPC ---
DCP/continued: Reviewed chart. AUTOMOBILE DAMAGE FIELD APPRAISER received phone call from patient's Mother/Hayley # [phone] re: d/c planning. AUTOMOBILE DAMAGE FIELD APPRAISER met briefly with patient to obtain permission to speak with Mother via the telephone. Patient provided AUTOMOBILE DAMAGE FIELD APPRAISER/CM team with permission to speak with her re: his care and d/c plan. Hayley concerned about patient's current need to be on methadone? Explained to Hayley that patient currently on small does of methadone to prevent heroin withdrawal. Mother reports that patient has long h/o IVDU. Mother currently out of state and hopes to get patient to [place] for drug treatment after hospitalization. Mother concerned because patient and girlfriend whom is currently at [facility] being treated for infection are very codependent of one and other. She believes that patient wants to stop using but she is unsure if he is strong enough. Mother requesting local phone numbers for substance abuse facilities. Provided her with name/number of [facility]. Mother appreciative. P: Pending. CM team to continue to attempt placement. Patient difficult to place at SNF because of active IVDU. Dr. Bruno scheduled to review for acute care appropriateness today. Will discuss with CM/Leak Detection Engineer Nadeen Montez tomorrow 12-19-17. ARSH Pena
[2017-12-18 17:00] VITALS: BP 106/65; PULSE 70; RESP 20; TEMP 36.6; O2SAT 100
--- NOTE | 2017-12-18 18:27 | P.PN_ITS ---
Subjective Date Patient Seen: 12/18/17 Time Patient Seen: 16:26 Interval history: History of present illness Follow-up on patient with right knee septic joint related IV heroin abuse Review of systems No chest pain or shortness of breath no nausea Exam Vital Signs (past 8 hours): - 12/18/17 17:00 Temperature 97.9 F Pulse Rate 70 Respiratory Rate 20 Blood Pressure 106/65 Pulse Oximetry 100 Oxygen Delivery Method Room Air Oxygen Flow Rate 0 Narrative Exam Narrative: General appearance patient appears to lay in bed all day long does not appear to be motivated to read or do anything else constructed. Psychiatric well oriented to time place person flat affect apparent Respiratory fairly clear to auscultation no wheezing crackles Cardiovascular regular rate rhythm no murmurs GI is benign and soft nontender Neurologic no focal neurologic changes cranial nerves 2-12 grossly intact Right knee exam less swelling is noted less tenderness improved but limited range of motion Objective Labs Result Diagrams: 12/18/17 08:00 12/18/17 07:44 Labs: Laboratory Results - last 24 hr 12/18/17 12/18/17 07:44 08:00 WBC 8.3 RBC 4.30 L Hgb 12.2 L Hct 35.8 L MCV 83.3 MCH 28.3 MCHC 34.0 RDW 16.0 H Plt Count 467 H Neut % (Auto) 60.7 Lymph % (Auto) 24.2 L [place] % (Auto) 8.3 Eos % (Auto) 6.0 H Baso % (Auto) 0.8 Neut # (Auto) 5000 Sodium 144 Potassium 4.4 Chloride 100 Carbon Dioxide 33 H BUN 16 Creatinine 0.80 Estimated GFR > 60.0 BUN/Creatinine Ratio 20.0 Glucose 83 Calcium 9.7 Total Bilirubin 0.3 AST 54 ALT 73 H Alkaline Phosphatase 83 Total Protein 7.6 Albumin 4.0 Globulin 3.6 Albumin/Globulin Ratio 1.1 Assessment & Plan Plan: Assessment/Plan Narrative: Chronic Heroin addiction while in patient methadone 20 mg twice daily Patient's family in [facility] may be placing patient in a inpatient rehab facility when patient is stable to do so Septic right knee joint: Orthopedic surgeon washed out right knee on 12/07. Daptomycin for 4 weeks, then 2 weeks oral antibiotics (high dose Bactrim recommended) Infectious Disease discouraged the use of Zyvox as 4 weeks or more will result in thrombocytopenia and is not recommended Requested patient to be out of bed for all meals And sit in a chair about 3 hr per day as tolerated Time Spent With Patient Time with patient: 25 - 35 minutes (Twenty min to visit with the patient)
[2017-12-18 23:00] VITALS: O2SAT 96
[2017-12-19] VITALS (9 sets, daily range): BP systolic 108–136; BP diastolic 54–81; PULSE 59–96; RESP 16–18; TEMP 36.6–37.1; O2SAT 96–99
[2017-12-19 05:57] LABS: Add Manual Diff / Slide Review NO; Basophils Percent Auto 1.2 % (0-2); Eosinophils Percent Auto 5.7 % (2-4); Hematocrit 35.8 % (41-53); Lymphocytes Percent Auto 28.4 % (25-40); Mean Corpuscular HGB Conc 33.5 % (30-36); Mean Corpuscular Volume 83.6 fL (80-100); Monocytes Percent Auto 8.2 % (3-14); Neutrophils Absolute Auto 5400 /uL (3000-5900); Neutrophils Percent Auto 56.5 % (50-75); Platelet Count 441 X10^3/uL (150-400); Red Blood Cell Count 4.29 X10^6/uL (4.5-5.9); Red Cell Distribution Width 15.5 % (11.6-14.8); White Blood Cell Count 9.6 X10^3/uL (4.5-11.0)
[2017-12-19 06:10] LABS: Alanine Aminotransferase 66 IU/L (21-72); Albumin 4.1 g/dL (3.5-5.0); Albumin Globulin Ratio 1.2 (1.0-2.8); Alkaline Phosphatase 91 U/L (38-126); Aspartate Aminotransferase 52 IU/L (17-59); Bilirubin Total 0.3 mg/dL (0.2-1.3); Blood Urea Nitrogen 16 mg/dL (9-20); Calcium 9.7 mg/dL (8.4-10.2); Carbon Dioxide 33 mmol/L (22-32); Chloride 100 mmol/L (98-107); Estimated Glomerular Filt Rate > 60.0 mL/min (>60); Globulin 3.5 g/dL (1.7-4.1); Glucose 85 mg/dL (70-100); HEMOLYSIS < 15 (0-50); Potassium 4.4 mmol/L (3.4-5.1); Sodium 141 mmol/L (137-145); Total Protein 7.6 g/dL (6.3-8.2)
[2017-12-19] MEDS: DOCUSATE 100 MG CAPSULE PO (09:13)
[2017-12-19] MEDS: METHADONE 10 MG TABLET 20 MG PO ×2 (09:14→21:14)
[2017-12-19] MEDS: ENOXAPARIN 40 MG/0.4 ML SYRINGE SUBCUT (09:14)
[2017-12-19] MEDS: ACETAMINOPHEN 325 MG TABLET 975 MG PO ×3 (09:14→20:56)
[2017-12-19] MEDS: NICOTINE 14 PATCH 14 MG TOP (09:15)
--- NOTE | 2017-12-19 09:21 | PM.PNPO.1 ---
Subjective Date Patient Seen: 12/19/17 Interval history: Patient seen bedside s/p I&D of a septic knee on 12/05/17. He is 12 days post-op. He is currently receiving IV antibiotics and is being cared for by the medical team. Exam Vital Signs (past 8 hours): - 12/19/17 05:30 12/19/17 07:40 Temperature 97.9 F 98.1 F Pulse Rate 59 L 68 Respiratory Rate 16 18 Blood Pressure 108/54 L 109/56 L Pulse Oximetry 99 99 Oxygen Delivery Method Room Air Oxygen Flow Rate 0 Narrative Exam Narrative: WDWN NAD A&Ox3. Right knee incisions are clean, dry, and intact. Sutures were removed. No signs of infection with full ROM and patient is NVI in this extremity. Objective Labs Result Diagrams: 12/19/17 05:40 12/19/17 05:40 Labs: Laboratory Results - last 24 hr 12/19/17 12/19/17 05:40 05:40 WBC 9.6 RBC 4.29 L Hgb 12.0 L Hct 35.8 L MCV 83.6 MCH 28.0 MCHC 33.5 RDW 15.5 H Plt Count 441 H Neut % (Auto) 56.5 Lymph % (Auto) 28.4 [place] % (Auto) 8.2 Eos % (Auto) 5.7 H Baso % (Auto) 1.2 Neut # (Auto) 5400 Sodium 141 Potassium 4.4 Chloride 100 Carbon Dioxide 33 H BUN 16 Creatinine 0.80 Estimated GFR > 60.0 BUN/Creatinine Ratio 20.0 Glucose 85 Calcium 9.7 Total Bilirubin 0.3 AST 52 ALT 66 Alkaline Phosphatase 91 Total Protein 7.6 Albumin 4.1 Globulin 3.5 Albumin/Globulin Ratio 1.2 Assessment & Plan Post-op Postoperative Procedures Operation Date: 12/07/17 19:00 Actual Procedures Side Surgeon p Incision and Drainage Knee with lavage irrigation Right Hansel Gagnon MD 1. Continue custodial antibiotics as dictated by IM. 2. Reconsult orthopedics as necessary.
--- NOTE | 2017-12-19 11:50 | CM.DPC ---
SNF referral faxed to [facility].
[2017-12-19] MEDS: SODIUM CHLORIDE 0.9% FLUSH 10 ML IV ×2 (13:14→21:15)
--- NOTE | 2017-12-19 17:13 | PM.PN.1 ---
Subjective Date Patient Seen: 12/19/17 Time Patient Seen: 17:14 Interval history: FOLLOW UP ON SEPTIC R KNEE JOINT Patient doing well. Pain is well controlled. No overnight events. Exam Vital Signs (past 8 hours): - 12/19/17 11:40 12/19/17 16:13 Temperature 97.8 F 98.8 F Pulse Rate 80 76 Respiratory Rate 18 16 Blood Pressure 113/60 125/66 Pulse Oximetry 99 98 Oxygen Delivery Method Room Air Oxygen Flow Rate 0 Narrative Exam Narrative: Gen: NAD, AAOx3 HEENT: PERRLA BL Neck: Supple, no LAD CV: RRR, no murmurs Resp: CTA BL, no wheezing GI: +BS, soft MSK: R knee incision wounds BL, clean, not inflamed. LUE PICC line Skin: No brusing. Objective Labs Result Diagrams: 12/19/17 05:40 12/19/17 05:40 Labs: Laboratory Results - last 24 hr 12/19/17 12/19/17 05:40 05:40 WBC 9.6 RBC 4.29 L Hgb 12.0 L Hct 35.8 L MCV 83.6 MCH 28.0 MCHC 33.5 RDW 15.5 H Plt Count 441 H Neut % (Auto) 56.5 Lymph % (Auto) 28.4 [place] % (Auto) 8.2 Eos % (Auto) 5.7 H Baso % (Auto) 1.2 Neut # (Auto) 5400 Sodium 141 Potassium 4.4 Chloride 100 Carbon Dioxide 33 H BUN 16 Creatinine 0.80 Estimated GFR > 60.0 BUN/Creatinine Ratio 20.0 Glucose 85 Calcium 9.7 Total Bilirubin 0.3 AST 52 ALT 66 Alkaline Phosphatase 91 Total Protein 7.6 Albumin 4.1 Globulin 3.5 Albumin/Globulin Ratio 1.2 Assessment & Plan Plan: Assessment/Plan Narrative: 1. Septic R knee Joint: - S/P Wash out but ortho 12/07 - Continue Daptomycin IV for 2.5 more weeks and then switch to High Dose Bactrim for 2 more weeks - Pending placement 2. Heroin Addiction - Chronic - Continue Methadone 20mg BID - Patient is interested in rehab once he is medically stable 25min spent evalauting and providing care to patient
[2017-12-20] VITALS (8 sets, daily range): BP systolic 110–124; BP diastolic 58–74; PULSE 73–96; RESP 16–20; TEMP 36.6–37; O2SAT 96–100
[2017-12-20 07:41] LABS: Add Manual Diff / Slide Review NO; Basophils Percent Auto 0.8 % (0-2); Eosinophils Percent Auto 4.5 % (2-4); Hematocrit 35.6 % (41-53); Hemoglobin 12.1 g/dL (13.5-17.5); Lymphocytes Percent Auto 26.4 % (25-40); Mean Corpuscular HGB Conc 33.9 % (30-36); Mean Corpuscular Hemoglobin 28.1 PG (26-34); Mean Corpuscular Volume 82.9 fL (80-100); Monocytes Percent Auto 6.8 % (3-14); Neutrophils Absolute Auto 5700 /uL (3000-5900); Neutrophils Percent Auto 61.5 % (50-75); Platelet Count 434 X10^3/uL (150-400); Red Cell Distribution Width 16.2 % (11.6-14.8); White Blood Cell Count 9.2 X10^3/uL (4.5-11.0)
[2017-12-20 07:51] LABS: Alanine Aminotransferase 67 IU/L (21-72); Albumin 4.3 g/dL (3.5-5.0); Albumin Globulin Ratio 1.2 (1.0-2.8); Alkaline Phosphatase 91 U/L (38-126); Aspartate Aminotransferase 48 IU/L (17-59); BUN Creatinine Ratio 21.3 (6-22); Bilirubin Total 0.3 mg/dL (0.2-1.3); Blood Urea Nitrogen 17 mg/dL (9-20); Calcium 9.7 mg/dL (8.4-10.2); Carbon Dioxide 34 mmol/L (22-32); Chloride 99 mmol/L (98-107); Estimated Glomerular Filt Rate > 60.0 mL/min (>60); Globulin 3.7 g/dL (1.7-4.1); Glucose 81 mg/dL (70-100); HEMOLYSIS < 15 (0-50); Potassium 4.3 mmol/L (3.4-5.1); Sodium 143 mmol/L (137-145)
--- NOTE | 2017-12-20 08:19 | PM.PNPO.1 ---
Subjective Date Patient Seen: 12/20/17 Time Patient Seen: 08:19 Interval history: POD #13 from R knee I&D with Dr. Gagnon. Patient reports he is in no pain at this time. He is currently receiving IV Daptomycin. He is being managed by medical team. He reports no SOB, chest pain, fever, chills, nausea or vomiting. Exam Vital Signs (past 8 hours): - 12/20/17 00:36 12/20/17 04:23 Temperature 98.1 F 97.9 F Pulse Rate 82 73 Respiratory Rate 20 20 Blood Pressure 124/68 110/58 L Pulse Oximetry 98 99 Oxygen Delivery Method Room Air Oxygen Flow Rate 0 Narrative Exam Narrative: Patient is AOx3. He is laying in bed with no signs of distress. Radial and dorsalis pedis pulses 2+ and symmetric. R knee incisions is CDI without any signs of infection. Muscle strength adequate in dorsiflexion, plantarflexion and financial services assistant bilaterally. Sensation to light touch intact in LE bilaterally. Patient actively able to flex and extend R knee with no pain. Calfs are soft, non tender and compressible bilaterally. Objective Labs Result Diagrams: 12/20/17 07:30 12/20/17 07:30 Labs: Laboratory Results - last 24 hr 12/20/17 12/20/17 07:30 07:30 WBC 9.2 RBC 4.30 L Hgb 12.1 L Hct 35.6 L MCV 82.9 MCH 28.1 MCHC 33.9 RDW 16.2 H Plt Count 434 H Neut % (Auto) 61.5 Lymph % (Auto) 26.4 [place] % (Auto) 6.8 Eos % (Auto) 4.5 H Baso % (Auto) 0.8 Neut # (Auto) 5700 Sodium 143 Potassium 4.3 Chloride 99 Carbon Dioxide 34 H BUN 17 Creatinine 0.80 Estimated GFR > 60.0 BUN/Creatinine Ratio 21.3 Glucose 81 Calcium 9.7 Total Bilirubin 0.3 AST 48 ALT 67 Alkaline Phosphatase 91 Total Protein 8.0 Albumin 4.3 Globulin 3.7 Albumin/Globulin Ratio 1.2 Assessment & Plan Post-op Postoperative Procedures Operation Date: 12/07/17 19:00 Actual Procedures Side Surgeon p Incision and Drainage Knee with lavage irrigation Right Hansel Gagnon MD Postoperative day: 13 Postoperative status: doing well Postoperative plan: routine post-op care Postoperative plan narrative: Continue IV antibiotics per IM. Discharge once medically stable per medical team. Time Spent With Patient less than 15 minutes
[2017-12-20] MEDS: ACETAMINOPHEN 325 MG TABLET 975 MG PO ×2 (08:37→20:29)
[2017-12-20] MEDS: ENOXAPARIN 40 MG/0.4 ML SYRINGE SUBCUT (08:37)
[2017-12-20] MEDS: DOCUSATE 100 MG CAPSULE PO (08:38)
[2017-12-20] MEDS: NICOTINE 14 PATCH 14 MG TOP (08:38)
[2017-12-20] MEDS: METHADONE 10 MG TABLET 20 MG PO ×2 (10:09→20:31)
[2017-12-20] MEDS: SODIUM CHLORIDE 0.9% FLUSH 10 ML IV ×3 (14:08→20:31)
--- NOTE | 2017-12-20 14:54 | CM.DPC ---
SNF referral faxed to [facility] [phone]
--- NOTE | 2017-12-20 15:31 | PM.PN.1 ---
Subjective Date Patient Seen: 12/20/17 Time Patient Seen: 15:31 Interval history: FOLLOW UP ON SEPTIC R KNEE JOINT Patient doing well. Pain is well controlled. No overnight events. Able to ambulate without knee pain Exam Vital Signs (past 8 hours): - 12/20/17 08:59 12/20/17 09:04 Temperature 98.2 F Pulse Rate 96 H Respiratory Rate 18 Blood Pressure 110/62 Pulse Oximetry 96 Oxygen Delivery Method Room Air Oxygen Flow Rate 0 Narrative Exam Narrative: Gen: NAD, AAOx3 HEENT: PERRLA BL Neck: Supple, no LAD CV: RRR, no murmurs Resp: CTA BL, no wheezing GI: +BS, soft MSK: R knee incision wounds BL, clean, not inflamed. LUE PICC line Skin: No brusing. Objective Labs Result Diagrams: 12/20/17 07:30 12/20/17 07:30 Labs: Laboratory Results - last 24 hr 12/20/17 12/20/17 07:30 07:30 WBC 9.2 RBC 4.30 L Hgb 12.1 L Hct 35.6 L MCV 82.9 MCH 28.1 MCHC 33.9 RDW 16.2 H Plt Count 434 H Neut % (Auto) 61.5 Lymph % (Auto) 26.4 [place] % (Auto) 6.8 Eos % (Auto) 4.5 H Baso % (Auto) 0.8 Neut # (Auto) 5700 Sodium 143 Potassium 4.3 Chloride 99 Carbon Dioxide 34 H BUN 17 Creatinine 0.80 Estimated GFR > 60.0 BUN/Creatinine Ratio 21.3 Glucose 81 Calcium 9.7 Total Bilirubin 0.3 AST 48 ALT 67 Alkaline Phosphatase 91 Total Protein 8.0 Albumin 4.3 Globulin 3.7 Albumin/Globulin Ratio 1.2 Assessment & Plan Plan: Assessment/Plan Narrative: 1. Septic R knee Joint: - S/P Wash out by orthopedicas 12/07/17, now POD 13 - Continue Daptomycin IV for a total of 4 weeks and then switch to High Dose Bactrim for 2 more weeks - Pending placement 2. Heroin Addiction - Chronic - Continue Methadone 20mg BID - Patient is interested in rehab once he is medically stable 20min spent evalauting and providing care to patient
[2017-12-21 05:24] LABS: Add Manual Diff / Slide Review NO; Basophils Percent Auto 1.5 % (0-2); Eosinophils Percent Auto 5.8 % (2-4); Hematocrit 37.2 % (41-53); Hemoglobin 12.4 g/dL (13.5-17.5); Lymphocytes Percent Auto 29.5 % (25-40); Mean Corpuscular HGB Conc 33.2 % (30-36); Mean Corpuscular Volume 84.2 fL (80-100); Monocytes Percent Auto 5.8 % (3-14); Neutrophils Absolute Auto 4700 /uL (3000-5900); Neutrophils Percent Auto 57.4 % (50-75); Platelet Count 427 X10^3/uL (150-400); Red Blood Cell Count 4.42 X10^6/uL (4.5-5.9); Red Cell Distribution Width 16.5 % (11.6-14.8); White Blood Cell Count 8.2 X10^3/uL (4.5-11.0)
[2017-12-21] MEDS: SODIUM CHLORIDE 0.9% FLUSH 10 ML IV ×4 (05:28→21:42)
[2017-12-21 05:34] LABS: Alanine Aminotransferase 69 IU/L (21-72); Albumin 4.3 g/dL (3.5-5.0); Albumin Globulin Ratio 1.2 (1.0-2.8); Alkaline Phosphatase 88 U/L (38-126); Aspartate Aminotransferase 54 IU/L (17-59); Bilirubin Total 0.3 mg/dL (0.2-1.3); Blood Urea Nitrogen 20 mg/dL (9-20); Calcium 9.9 mg/dL (8.4-10.2); Carbon Dioxide 31 mmol/L (22-32); Chloride 101 mmol/L (98-107); Estimated Glomerular Filt Rate > 60.0 mL/min (>60); Globulin 3.6 g/dL (1.7-4.1); Glucose 91 mg/dL (70-100); HEMOLYSIS < 15 (0-50); Potassium 4.5 mmol/L (3.4-5.1); Sodium 142 mmol/L (137-145); Total Protein 7.9 g/dL (6.3-8.2)
[2017-12-21 07:00] VITALS: O2SAT 100
[2017-12-21 08:00] VITALS: BP 103/67; PULSE 73; RESP 14; TEMP 36.7; O2SAT 100
--- NOTE | 2017-12-21 08:04 | P.PN_ITS ---
Subjective Date Patient Seen: 12/21/17 Time Patient Seen: 07:59 Interval history: Patient is postop day 4. Status post I and D of the right septic knee joint her by Dr. Gagnon. He has been on IV daptomycin. He is pending placement to the rehab facility due to his heroin addiction. He is being followed by the medical service. No complaints of pain in the right knee and has been ambulating well. Exam Vital Signs (past 8 hours): Oxygen Delivery Method Room Air Oxygen Flow Rate 0 Narrative Exam Narrative: Patient lying in bed. Appears comfortable. Alert and orient x3. Right knee with small effusion. No redness. Sutures were removed yesterday. Incisions with good scab formation. Range of motion in knee from 0- 115 degrees. Bilateral calf soft and nontender. Good right ankle strength. Neurovascular status intact. Objective Labs Result Diagrams: 12/21/17 05:00 12/21/17 05:00 Labs: Laboratory Results - last 24 hr 12/21/17 12/21/17 05:00 05:00 WBC 8.2 RBC 4.42 L Hgb 12.4 L Hct 37.2 L MCV 84.2 MCH 28.0 MCHC 33.2 RDW 16.5 H Plt Count 427 H Neut % (Auto) 57.4 Lymph % (Auto) 29.5 [place] % (Auto) 5.8 Eos % (Auto) 5.8 H Baso % (Auto) 1.5 Neut # (Auto) 4700 Sodium 142 Potassium 4.5 Chloride 101 Carbon Dioxide 31 BUN 20 Creatinine 0.80 Estimated GFR > 60.0 BUN/Creatinine Ratio 25.0 H Glucose 91 Calcium 9.9 Total Bilirubin 0.3 AST 54 ALT 69 Alkaline Phosphatase 88 Total Protein 7.9 Albumin 4.3 Globulin 3.6 Albumin/Globulin Ratio 1.2 Assessment & Plan Post-op Postoperative Procedures Operation Date: 12/07/17 19:00 Actual Procedures Side Surgeon p Incision and Drainage Knee with lavage irrigation Right Hansel Gagnon MD Postop day 14. Status post I and D right septic knee. Had continue ambulating. Continue daptomycin for total 4 weeks and be switched to high dose Bactrim for 2 weeks. First her own addiction and continue methadone 20 mg b.i.d. plan is to discharge to rehab facility once he is medically stable by the hospital service.
[2017-12-21] MEDS: METHADONE 10 MG TABLET 20 MG PO ×2 (10:14→21:35)
[2017-12-21] MEDS: ENOXAPARIN 40 MG/0.4 ML SYRINGE SUBCUT (10:14)
[2017-12-21] MEDS: NICOTINE 14 PATCH 14 MG TOP (10:15)
--- NOTE | 2017-12-21 13:37 | CM.DPC ---
Addendum entered by Naty Minaya 12/22/17 12:01: Original Note: [phone].
[2017-12-21 15:00] VITALS: O2SAT 97
--- NOTE | 2017-12-21 15:26 | PC.NURSE ---
shift note: patient took shower, set up assist this am. indep in rm. steady on feet. he received a package from his mother by mail today. he was agreeable to this global technical writer witnessing contents of package as he opened it. contained gummy bear packages x2, contact lenses, ear buds for listening to music a card and chap stick. he states his mom forgot to send his contact solution, and he expects her to mail him some to arrive possibly tomorrow.
[2017-12-21 15:35] VITALS: PULSE 71; RESP 20; TEMP 36.2; O2SAT 97
--- NOTE | 2017-12-21 19:13 | PM.PN.1 ---
Subjective Date Patient Seen: 12/21/17 Time Patient Seen: 19:13 Interval history: FOLLOW UP ON SEPTIC R KNEE JOINT Patient doing well. Pain is well controlled. No overnight events. Able to ambulate without knee pain. Good appetite Exam Vital Signs (past 8 hours): - 12/21/17 15:00 12/21/17 15:35 Temperature 97.2 F L Pulse Rate 71 Respiratory Rate 20 Pulse Oximetry 97 97 Oxygen Delivery Method Room Air Oxygen Flow Rate 0 Narrative Exam Narrative: Gen: NAD, AAOx3 HEENT: PERRLA BL Neck: Supple, no LAD CV: RRR, no murmurs Resp: CTA BL, no wheezing GI: +BS, soft MSK: R knee incision wounds BL, clean, not inflamed. LUE PICC line Skin: No brusing. Objective Labs Result Diagrams: 12/21/17 05:00 12/21/17 05:00 Labs: Laboratory Results - last 24 hr 12/21/17 12/21/17 05:00 05:00 WBC 8.2 RBC 4.42 L Hgb 12.4 L Hct 37.2 L MCV 84.2 MCH 28.0 MCHC 33.2 RDW 16.5 H Plt Count 427 H Neut % (Auto) 57.4 Lymph % (Auto) 29.5 [place] % (Auto) 5.8 Eos % (Auto) 5.8 H Baso % (Auto) 1.5 Neut # (Auto) 4700 Sodium 142 Potassium 4.5 Chloride 101 Carbon Dioxide 31 BUN 20 Creatinine 0.80 Estimated GFR > 60.0 BUN/Creatinine Ratio 25.0 H Glucose 91 Calcium 9.9 Total Bilirubin 0.3 AST 54 ALT 69 Alkaline Phosphatase 88 Total Protein 7.9 Albumin 4.3 Globulin 3.6 Albumin/Globulin Ratio 1.2 Assessment & Plan Plan: Assessment/Plan Narrative: 1. Septic R knee Joint: - S/P Wash out by orthopedicas 12/07/17, now POD 13 - Continue Daptomycin IV for a total of 4 weeks and then switch to High Dose Bactrim for 2 more weeks - Pending placement 2. Heroin Addiction - Chronic - Continue Methadone 20mg BID - Patient is interested in rehab once he is medically stable 20min spent evalauting and providing care to patient FULL CODE
[2017-12-21] MEDS: ACETAMINOPHEN 325 MG TABLET 975 MG PO (21:35)
[2017-12-21 23:00] VITALS: O2SAT 98
[2017-12-21 23:30] VITALS: BP 112/59; PULSE 72; RESP 16; TEMP 36.7; O2SAT 99
[2017-12-22 08:00] VITALS: BP 114/73; PULSE 83; RESP 16; TEMP 36.2; O2SAT 99
[2017-12-22] MEDS: ACETAMINOPHEN 325 MG TABLET 975 MG PO ×2 (08:38→20:29)
[2017-12-22] MEDS: DOCUSATE 100 MG CAPSULE PO (08:38)
[2017-12-22] MEDS: METHADONE 10 MG TABLET 20 MG PO ×2 (08:38→20:30)
[2017-12-22] MEDS: NICOTINE 14 PATCH 14 MG TOP (08:39)
[2017-12-22] MEDS: ENOXAPARIN 40 MG/0.4 ML SYRINGE SUBCUT (08:39)
[2017-12-22] MEDS: SODIUM CHLORIDE 0.9% FLUSH 10 ML IV ×2 (08:39→20:30)
[2017-12-22 09:24] VITALS: O2SAT 98
--- NOTE | 2017-12-22 10:28 | PM.PNPO.1 ---
Subjective Date Patient Seen: 12/22/17 Time Patient Seen: 10:28 Interval history: Patient is postop day 15. Status post I and D of the right septic knee joint by Dr. Gagnon. Receiving IV Daptomycin. Sutures have already been removed. Ambulating well. Not much pain in the knee with movement. Also receiving methadone 20 mg b.i.d. for heroin addiction. Exam Vital Signs (past 8 hours): - 12/22/17 08:00 12/22/17 09:24 Temperature 97.2 F L Pulse Rate 83 Respiratory Rate 16 Blood Pressure 114/73 Pulse Oximetry 99 98 Oxygen Delivery Method Room Air Oxygen Flow Rate 0 Narrative Exam Narrative: Patient lying in bed. Alert orient x3. Small effusion in the right knee. Surgical incisions with good scab formation. Range of motion from 0-110 degrees. 5/5 right ankle strength. Neurovascular status intact. Objective Labs Result Diagrams: 12/21/17 05:00 12/21/17 05:00 Assessment & Plan Post-op Postoperative Procedures Operation Date: 12/07/17 19:00 Actual Procedures Side Surgeon p Incision and Drainage Knee with lavage irrigation Right Hansel Gagnon MD Postop day 15. Continue ambulating. Continue IV daptomycin for total of 4 weeks. Afterwards patient will be switched to high-dose Bactrim for 2 more weeks. Continue methadone 20 mg b.i.d. patient awaiting placement for rehab facility. From orthopedic standpoint patient is stable.
--- NOTE | 2017-12-22 12:01 | CM.DPC ---
SNF Referral faxed to [facility] [place] @[phone].
[2017-12-22] MEDS: SODIUM CHLORIDE 0.9% 250 ML 21 ML IV (13:51)
--- NOTE | 2017-12-22 14:52 | PC.NURSE ---
12/22 1450; pleasant male, independent in room, VSS on RA. IV antibiotics q24hrs, PICC line patent, dressing intact. Denies pain. RLE with CMS intact, some residual swelling around knee cap but otherwise healing. Scab present where incisions were made, no drainage. No changes.
[2017-12-22 15:15] VITALS: BP 107/53; PULSE 81; RESP 16; TEMP 36.6; O2SAT 98
[2017-12-22 17:16] VITALS: O2SAT 98
--- NOTE | 2017-12-22 18:00 | PM.PN.1 ---
Subjective Date Patient Seen: 12/22/17 Time Patient Seen: 18:00 Interval history: FOLLOW UP ON SEPTIC R KNEE JOINT Patient doing well. No complaints. Knee healing well Exam Vital Signs (past 8 hours): - 12/22/17 15:15 12/22/17 17:16 Temperature 97.8 F Pulse Rate 81 Respiratory Rate 16 Blood Pressure 107/53 L Pulse Oximetry 98 98 Oxygen Delivery Method Room Air Oxygen Flow Rate 0 Narrative Exam Narrative: Gen: NAD, AAOx3 HEENT: PERRLA BL Neck: Supple, no LAD CV: RRR, no murmurs Resp: CTA BL, no wheezing GI: +BS, soft MSK: R knee incision wounds BL, clean, not inflamed. LUE PICC line Skin: No brusing. Objective Labs Result Diagrams: 12/21/17 05:00 12/21/17 05:00 Assessment & Plan Plan: Assessment/Plan Narrative: 1. Septic R knee Joint: - S/P Wash out by orthopedicas 12/07/17, now POD 14 - Continue Daptomycin IV for a total of 4 weeks and then switch to High Dose Bactrim for 2 more weeks - Pending placement 2. Heroin Addiction - Chronic - Continue Methadone 20mg BID - Patient is interested in rehab once he is medically stable 15 min spent evalauting and providing care to patient FULL CODE
[2017-12-23 03:30] VITALS: BP 117/62; PULSE 80; RESP 17; TEMP 36.7; O2SAT 99
[2017-12-23 03:34] VITALS: O2SAT 99
--- NOTE | 2017-12-23 03:40 | PC.NURSE ---
Patient is alert and oriented. Breath sounds CTA with RA sat of 99%. HRR. Denies nausea. BT present and abdomen is soft. Denies any urinary problems/concerns. Is independent with mobility. Incisions medial/lateral right knee are well approximated with no drainage or redness noted. Right knee does appear to be larger than left but no difference in temperature of skin. Denies any pain. Remains on contact isolation due to MRSA + in synovial fluid. Is receiving daily IV antibiotic therapy.
[2017-12-23 08:00] VITALS: BP 118/63; PULSE 81; RESP 16; TEMP 36.5; O2SAT 99
[2017-12-23 08:15] VITALS: O2SAT 99
[2017-12-23] MEDS: NICOTINE 14 PATCH 14 MG TOP (08:18)
[2017-12-23] MEDS: ACETAMINOPHEN 325 MG TABLET 975 MG PO ×3 (08:18→20:11)
[2017-12-23] MEDS: METHADONE 10 MG TABLET 20 MG PO (08:18)
[2017-12-23] MEDS: SODIUM CHLORIDE 0.9% FLUSH 10 ML IV ×2 (08:19→20:12)
[2017-12-23] MEDS: DOCUSATE 100 MG CAPSULE PO (08:19)
[2017-12-23] MEDS: ENOXAPARIN 40 MG/0.4 ML SYRINGE SUBCUT (08:19)
--- NOTE | 2017-12-23 13:59 | CM.DPC ---
DCP Cont: Per Ortho PA, pt continues to progress and ambulating well but still requiring IV-Abx and low dose methadone for heroin withdrawal. Per MD, pt will be weaned off Methadone prior to discharge and hospitalist does not follow or write prescriptions for methadone. MD may reduce pt's methadone today to begin the weaning process. MANDY Naty continues to fax SNF's pt's referral for IV-Abx and currently pt's hx of drug use is a barrier to acceptance at SNF. Plan: SW to follow for further discussion with pt's mom regarding if she has contacted local rehab facilities vs rehab in [place]. SW to follow for ongoing search for SNF's although pt's drug use a barrier to placement. ARSH Sequeira
[2017-12-23 15:15] VITALS: BP 145/61; PULSE 81; RESP 16; TEMP 36.7; O2SAT 98
--- NOTE | 2017-12-23 15:24 | PM.PN.1 ---
Subjective Date Patient Seen: 12/23/17 Time Patient Seen: 15:24 Interval history: Follow-up on septic right knee joint Patient seen at bedside. Patient is doing well. Right knee is improving, no swelling redness or tenderness. I have discussed with patient about going down on methadone, to which he agreed. No overnight events. Exam Vital Signs (past 8 hours): - 12/23/17 08:00 12/23/17 08:15 Temperature 97.7 F Pulse Rate 81 Respiratory Rate 16 Blood Pressure 118/63 Pulse Oximetry 99 99 Oxygen Delivery Method Room Air Oxygen Flow Rate 0 Narrative Exam Narrative: Gen: NAD, AAOx3 HEENT: PERRLA BL Neck: Supple, no LAD CV: RRR, no murmurs Resp: CTA BL, no wheezing GI: +BS, soft MSK: R knee incision wounds BL, clean, not inflamed. LUE PICC line Skin: No brusing. Objective Labs Result Diagrams: 12/21/17 05:00 12/21/17 05:00 Labs: 1. Septic R knee Joint: - S/P Wash out by orthopedicas 12/07/17, now POD 14 - Continue Daptomycin IV for a total of 4 weeks and then switch to High Dose Bactrim for 2 more weeks - Pending placement 2. Heroin Addiction - Chronic - Decrease Methadone to 10mg BID - Patient is interested in rehab once he is medically stable 15 min spent evalauting and providing care to patient FULL CODE
[2017-12-23] MEDS: METHADONE 10 MG TABLET PO (20:11)
[2017-12-23 23:57] VITALS: BP 121/66; PULSE 77; RESP 14; TEMP 36.8; O2SAT 99
[2017-12-24] VITALS: O2SAT 99
[2017-12-24 06:12] LABS: Add Manual Diff / Slide Review NO; Eosinophils Percent Auto 7.4 % (2-4); Hematocrit 36.2 % (41-53); Hemoglobin 12.1 g/dL (13.5-17.5); Lymphocytes Percent Auto 24.8 % (25-40); Mean Corpuscular HGB Conc 33.4 % (30-36); Mean Corpuscular Hemoglobin 27.9 PG (26-34); Mean Corpuscular Volume 83.5 fL (80-100); Monocytes Percent Auto 8.3 % (3-14); Neutrophils Absolute Auto 4600 /uL (3000-5900); Neutrophils Percent Auto 58.5 % (50-75); Platelet Count 342 X10^3/uL (150-400); Red Blood Cell Count 4.33 X10^6/uL (4.5-5.9); White Blood Cell Count 7.9 X10^3/uL (4.5-11.0)
[2017-12-24 06:21] LABS: BUN Creatinine Ratio 23.8 (6-22); Blood Urea Nitrogen 19 mg/dL (9-20); Calcium 9.6 mg/dL (8.4-10.2); Carbon Dioxide 33 mmol/L (22-32); Chloride 98 mmol/L (98-107); Estimated Glomerular Filt Rate > 60.0 mL/min (>60); Glucose 83 mg/dL (70-100); HEMOLYSIS < 15 (0-50); Potassium 4.4 mmol/L (3.4-5.1); Sodium 143 mmol/L (137-145)
[2017-12-24 08:00] VITALS: BP 119/61; PULSE 75; RESP 16; TEMP 36.7; O2SAT 98
[2017-12-24] MEDS: ENOXAPARIN 40 MG/0.4 ML SYRINGE SUBCUT (08:56)
[2017-12-24] MEDS: ACETAMINOPHEN 325 MG TABLET 975 MG PO (08:56)
[2017-12-24] MEDS: DOCUSATE 100 MG CAPSULE PO (08:56)
[2017-12-24] MEDS: NICOTINE 14 PATCH 14 MG TOP (08:56)
[2017-12-24] MEDS: METHADONE 10 MG TABLET PO ×2 (08:56→20:58)
[2017-12-24] MEDS: SODIUM CHLORIDE 0.9% FLUSH 10 ML IV ×2 (08:57→20:59)
[2017-12-24 09:00] VITALS: O2SAT 98
--- NOTE | 2017-12-24 10:15 | PM.PN.1 ---
Subjective Date Patient Seen: 12/24/17 Time Patient Seen: 10:15 Interval history: Follow-up on septic right knee joint Patient seen at bedside. Doing well. Tolerated Methadone 10mg BID yesterday...will continue to wean off. No overnight events. Exam Vital Signs (past 8 hours): - 12/24/17 08:00 Temperature 98.0 F Pulse Rate 75 Respiratory Rate 16 Blood Pressure 119/61 Pulse Oximetry 98 Oxygen Delivery Method Room Air Oxygen Flow Rate 0 Narrative Exam Narrative: Gen: NAD, AAOx3 HEENT: PERRLA BL Neck: Supple, no LAD CV: RRR, no murmurs Resp: CTA BL, no wheezing GI: +BS, soft MSK: R knee incision wounds BL, clean, not inflamed. LUE PICC line Skin: No brusing Objective Labs Result Diagrams: 12/24/17 06:00 12/24/17 06:00 Labs: Laboratory Results - last 24 hr 12/24/17 12/24/17 06:00 06:00 WBC 7.9 RBC 4.33 L Hgb 12.1 L Hct 36.2 L MCV 83.5 MCH 27.9 MCHC 33.4 RDW 16.0 H Plt Count 342 Neut % (Auto) 58.5 Lymph % (Auto) 24.8 L [place] % (Auto) 8.3 Eos % (Auto) 7.4 H Baso % (Auto) 1.0 Neut # (Auto) 4600 Sodium 143 Potassium 4.4 Chloride 98 Carbon Dioxide 33 H BUN 19 Creatinine 0.80 Estimated GFR > 60.0 BUN/Creatinine Ratio 23.8 H Glucose 83 Calcium 9.6 Assessment & Plan Plan: Assessment/Plan Narrative: 1. Septic R knee Joint: - S/P Wash out by orthopedicas 12/07/17, now POD 14 - Continue Daptomycin IV for a total of 4 weeks and then switch to High Dose Bactrim for 2 more weeks - Pending placement 2. Heroin Addiction - Chronic - Continue Methadone to 10mg BID and slowly titrate down - Patient is interested in rehab once he is medically stable 15 min spent evalauting and providing care to patient
--- NOTE | 2017-12-24 12:10 | PC.NURSE ---
Day Shift- Pt Compliant with care, no voiced concerns. Denies pain to right knee, mild swelling noted to right knee compared to left. Swelling at lateral and medial incision sites, puffy to touch, non-tender. No redness or temperature change noted compared to surrounding skin. PICC dressing CDI to RAFA, flushes well with brisk blood return. Pt OOB to recliner chair for lunch, indep ambulates in room with steady gait. Pt using call light appropriately.
[2017-12-24] MEDS: SODIUM CHLORIDE 0.9% 250 ML 21 ML IV (13:56)
[2017-12-24 15:50] VITALS: BP 116/63; PULSE 73; RESP 16; TEMP 36.8; O2SAT 100
--- NOTE | 2017-12-24 21:03 | PC.NURSE ---
SHIFT NOTE A&Ox3, cooperative with care. independent with ADLs. anay any pain, declined scheduled tylenol. LUE PICC intact. pt had a shower this evening. per MASH TUB COOKER report, bathroom smelled like cigarette smoke upon cleaning up the towels. will continue to monitor.
[2017-12-25 00:29] VITALS: BP 114/81; PULSE 81; RESP 16; TEMP 36.7; O2SAT 99
[2017-12-25 00:40] VITALS: O2SAT 99
[2017-12-25 10:20] VITALS: O2SAT 99
[2017-12-25] MEDS: DOCUSATE 100 MG CAPSULE PO ×2 (10:31→20:29)
[2017-12-25] MEDS: NICOTINE 14 PATCH 14 MG TOP (10:31)
[2017-12-25] MEDS: METHADONE 10 MG TABLET PO ×2 (10:31→20:29)
[2017-12-25] MEDS: SODIUM CHLORIDE 0.9% FLUSH 10 ML IV ×2 (10:32→20:29)
[2017-12-25] MEDS: ENOXAPARIN 40 MG/0.4 ML SYRINGE SUBCUT (10:32)
--- NOTE | 2017-12-25 11:52 | CM.DPC ---
Referral faxed to [facility] [phone] per Krissy
[2017-12-25 12:20] VITALS: BP 108/58; PULSE 72; RESP 16; TEMP 36.4; O2SAT 100
--- NOTE | 2017-12-25 12:43 | PM.PN.1 ---
Subjective Date Patient Seen: 12/25/17 Time Patient Seen: 12:44 Interval history: Follow-up on septic right knee joint Patient seen at bedside. Doing well. No overnight events. Exam Vital Signs (past 8 hours): - 12/25/17 10:20 12/25/17 12:20 Temperature 97.5 F L Pulse Rate 72 Respiratory Rate 16 Blood Pressure 108/58 L Pulse Oximetry 99 100 Oxygen Delivery Method Room Air Oxygen Flow Rate 0 Narrative Exam Narrative: Gen: NAD, AAOx3 HEENT: PERRLA BL Neck: Supple, no LAD CV: RRR, no murmurs Resp: CTA BL, no wheezing GI: +BS, soft MSK: R knee incision wounds BL, clean, not inflamed. LUE PICC line Skin: No brusing Objective Labs Result Diagrams: 12/24/17 06:00 12/24/17 06:00 Assessment & Plan Plan: Assessment/Plan Narrative: 1. Septic R knee Joint: - S/P Wash out by orthopedicas 12/07/17, now POD 18 - Continue Daptomycin IV for a total of 4 weeks (stop date Jan 08) and then switch to High Dose Bactrim for 2 more weeks - Pending placement 2. Heroin Addiction - Chronic - Continue Methadone to 10mg BID. Will start Daily tomorrow - Patient is interested in rehab once he is medically stable 15 min spent evalauting and providing care to patient
--- NOTE | 2017-12-25 14:38 | CM.DPC ---
DCP/continued: Reviewed chart. Spoke with Dr. Varghese this AM re: d/c date. It is now determined that patient will require IV abx until Monday January 08, 2018. Met with patient and he is aware and agreeable. Patient reports that he is interested in going to inpatient treatment once IV abx therapy completed. Patient asked ENVIRONMENTAL DESIGNER about [facility] [place]. ENVIRONMENTAL DESIGNER team to check into this facility as d/c approaches. Patient also reports that his girlfriend will be discharging from [facility] on January 04. Patient has spoken to her and he indicates that she will be going to intensive outpatient therapy. Encouraged patient to continue to stay positive about being sober and plan to go to inpatient rehab. P: Patient remains hospitalized for IV abx therapy. SILVA/Naty continues to attempt SNF placement. CM/Intranet Developer Nadeen Montez and administration updated. ARSH Pena
[2017-12-25 15:55] VITALS: BP 131/78; PULSE 106; RESP 15; TEMP 36.4; O2SAT 98
[2017-12-25 16:49] VITALS: O2SAT 99
[2017-12-25] MEDS: MAGNESIUM HYDROXIDE 30 ML UDC PO (20:29)
[2017-12-26] VITALS (7 sets, daily range): BP systolic 116–132; BP diastolic 55–69; PULSE 76–90; RESP 16–19; TEMP 36.5–37.1; O2SAT 98
--- NOTE | 2017-12-26 03:07 | PC.NURSE ---
Addendum entered by Shaneka Mayer R.N. 12/26/17 06:38: Slept most of shift. Up independent in room. Original Note: Patient is alert and oriented. Breath sounds with inspiratory crackles in left upper lobe; RA sat 98%. HRR. Denies nausea. BT present and abdomen is soft. Voiding without problems. Independent with mobility. Denies pain. Incisions on knee healed; knee remains slightly swollen. CMS intact. Fall risk score is moderate. Remains on contact isolation due to MRSA in synovial fluid.
[2017-12-26] MEDS: SODIUM CHLORIDE 0.9% FLUSH 10 ML IV (09:34)
[2017-12-26] MEDS: ENOXAPARIN 40 MG/0.4 ML SYRINGE SUBCUT (09:34)
[2017-12-26] MEDS: NICOTINE 14 PATCH 14 MG TOP (09:34)
[2017-12-26] MEDS: DOCUSATE 100 MG CAPSULE PO (09:34)
[2017-12-26] MEDS: METHADONE 10 MG TABLET PO (09:34)
--- NOTE | 2017-12-26 10:38 | PC.NURSE ---
Assumed pt care at 0700. Pt is a/o x3, no c/o pain or nausea. Medications given per MAR. Pt sleeping most of the morning, bed is in lowest locked position and call light within reach. Care continues.
--- NOTE | 2017-12-26 13:42 | PM.PN.1 ---
Subjective Date Patient Seen: 12/26/17 Time Patient Seen: 13:42 Interval history: Follow-up on septic right knee joint Patient seen at bedside. Doing well. No overnight events. No pain in the knee Exam Vital Signs (past 8 hours): - 12/26/17 07:00 12/26/17 09:30 Temperature 97.7 F Pulse Rate 76 Respiratory Rate 16 Blood Pressure 116/69 Pulse Oximetry 98 98 Oxygen Delivery Method Room Air Oxygen Flow Rate 0 Narrative Exam Narrative: Gen: NAD, AAOx3 HEENT: PERRLA BL Neck: Supple, no LAD CV: RRR, no murmurs Resp: CTA BL, no wheezing GI: +BS, soft MSK: R knee incision wounds BL, clean, not inflamed. LUE PICC line Skin: No brusing Objective Labs Result Diagrams: 12/24/17 06:00 12/24/17 06:00 Assessment & Plan Plan: Assessment/Plan Narrative: 1. Septic R knee Joint: - S/P Wash out by orthopedicas 12/07/17, now POD 18 - Continue Daptomycin IV for a total of 4 weeks (stop date Jan 08) and then switch to High Dose Bactrim for 2 more weeks - Pending placement 2. Heroin Addiction - Chronic - Decrease Methadone to 10mg Daily - Patient is interested in rehab once he is medically stable 15 min spent evalauting and providing care to patient Of note, patient's Girlfriend, who is also drug addict, will be released from another hospital on Jan 04. Need to be on the watch out for substance abuse
[2017-12-26] MEDS: SODIUM CHLORIDE 0.9% 250 ML 21 ML IV (14:26)
--- NOTE | 2017-12-26 14:47 | PC.NURSE ---
Day Shift- Pt compliant with care, able to make needs known, call light within reach. Denies pain. Right knee incisions X2 well approximated, healing and small amount of scabbing left. Slight puffy edema noted surrounding incision sites, non-tender. Voiding qs X1 this shift, states no difficulties, no BM this shift. Slept on/off throughout day, enc OOB to chair for meals. AE clear throughout lung suarez, enc deep breathing exercises. Indep in room.
[2017-12-27] MEDS: SODIUM CHLORIDE 0.9% FLUSH 10 ML IV ×5 (00:22→22:35)
[2017-12-27 00:34] VITALS: O2SAT 98
--- NOTE | 2017-12-27 00:38 | PC.NURSE ---
Addendum entered by Shaneka Mayer R.N. 12/27/17 06:51: Slept most of night. Blood drawn from PICC for lab this morning. Denies pain. Original Note: Patient is alert and oriented. Breath sounds diminished but CTA with RA sat 98%; states he is able to reach goal of 3000 on I.S. HRR. Denies nausea. BT present and abdomen is soft; had BM yesterday. Denies any problems with urination. Is independent with mobility; does not use assistive device. Incisions medial/lateral right knee are healed but knee still slightly swollen. Denies pain. Remains in contact isolation due to MRSA in synovial fluid. Fall risk score is moderate.
[2017-12-27 05:46] LABS: Add Manual Diff / Slide Review NO; Basophils Percent Auto 0.7 % (0-2); Eosinophils Percent Auto 5.9 % (2-4); Hematocrit 38.4 % (41-53); Hemoglobin 12.5 g/dL (13.5-17.5); Lymphocytes Percent Auto 26.9 % (25-40); Mean Corpuscular HGB Conc 32.5 % (30-36); Mean Corpuscular Hemoglobin 27.7 PG (26-34); Mean Corpuscular Volume 85.1 fL (80-100); Monocytes Percent Auto 7.9 % (3-14); Neutrophils Absolute Auto 5500 /uL (3000-5900); Neutrophils Percent Auto 58.6 % (50-75); Platelet Count 335 X10^3/uL (150-400); Red Blood Cell Count 4.51 X10^6/uL (4.5-5.9); Red Cell Distribution Width 16.2 % (11.6-14.8); White Blood Cell Count 9.3 X10^3/uL (4.5-11.0)
[2017-12-27 05:57] LABS: BUN Creatinine Ratio 21.3 (6-22); Blood Urea Nitrogen 17 mg/dL (9-20); Calcium 9.8 mg/dL (8.4-10.2); Carbon Dioxide 29 mmol/L (22-32); Chloride 101 mmol/L (98-107); Estimated Glomerular Filt Rate > 60.0 mL/min (>60); Glucose 92 mg/dL (70-100); HEMOLYSIS < 15 (0-50); Potassium 4.2 mmol/L (3.4-5.1); Sodium 143 mmol/L (137-145)
[2017-12-27 08:00] VITALS: BP 128/65; PULSE 71; RESP 16; TEMP 36.6; O2SAT 98
--- NOTE | 2017-12-27 08:07 | CM.DPC ---
SNF Referral faxed to the following... [facility] for Rehab
[2017-12-27] MEDS: DOCUSATE 100 MG CAPSULE PO ×2 (08:59→21:08)
[2017-12-27] MEDS: ENOXAPARIN 40 MG/0.4 ML SYRINGE SUBCUT (08:59)
[2017-12-27] MEDS: NICOTINE 14 PATCH 14 MG TOP (09:01)
[2017-12-27] MEDS: METHADONE 10 MG TABLET PO (09:06)
[2017-12-27 09:15] VITALS: O2SAT 98
--- NOTE | 2017-12-27 10:24 | CM.DPC ---
Addendum entered by ARSH Sequeira 12/27/17 13:40: ADD: Delmi from [facility] called back stating that now pt's CM is Navin Cintron ([phone]). Naty GALVAN called Navin with [facility] and he stated that the process for Behavioral Health Inpt CD tx is that he would send in a referral to their behavioral health department today and the assigned CM would call SW within the next 24 hrs to begin the process of authorizing the pt for Inpt Tx. Plan: SW to follow closely for call from [facility] assigned CM to begin auth process for Inpt CD tx. ARSH Sequeira Original Note: DCP Cont: Per MD, plan is still for pt to remain on IV-Abx until Jan 08 before he is medically stable for d/c. Pt was requesting support with inquiring with [facility] in [place] to see if they would be able to accept him for treatment at d/c. SW called pt's [facility] CM Delmi ([phone]) and left a message inquiring about the process of getting preauth for CD inpt tx, how long auth typically lasts and if it needs to be done closer to d/c, and if there are any contracted inpt tx facilities in [place]. SW called [facility] ([phone]) admissions and currently they do not have any open male beds but request call back this next week. Plan: SW to follow for return call from Delmi with [facility] to discuss the process of auth for Inpt CD tx in order to have plans set up for when pt is ready for discharge on Jan 08. ARSH Sequeira
--- NOTE | 2017-12-27 11:55 | CM.DPC ---
Spoke with Navin at [facility] regarding continuing to fax to SNF's for placement and auth for Inpatient drug/alcohol treatment. We do NOT have to continue faxing to SNF's. He submitted an internal referral to Behavioral Health for the treatment facility referral and auth. They will be calling the SOCIAL WELFARE RESEARCH WORKER phone to start the process.
[2017-12-27 15:00] VITALS: O2SAT 100
[2017-12-27 15:56] VITALS: BP 114/63; PULSE 66; RESP 20; TEMP 36.7; O2SAT 99
--- NOTE | 2017-12-27 16:06 | PC.NURSE ---
Day Shift- Pt compliant with care, encouraged OOB movement. Right FA noticed to have bandaid present. Which was removed and small wound noticed. Area raised pink/red, moist, no S/S of infection. Pt stated the area looked better and was from a previous drug injection site. Area cleansed with NS and small allevyn dressing placed. PICC dressing due to be changed today and unable to perform, Evening Rn aware.
[2017-12-27] MEDS: clonazePAM 0.5 MG TABLET 1 MG PO (19:00)
[2017-12-27] MEDS: MAGNESIUM HYDROXIDE 30 ML UDC PO (21:07)
[2017-12-27] MEDS: TEMAZEPAM 15 MG CAPSULE 30 MG PO (21:07)
[2017-12-27 23:55] VITALS: BP 140/89; PULSE 94; RESP 18; TEMP 36.6; O2SAT 100
--- NOTE | 2017-12-28 00:10 | PC.NURSE ---
Pt reports severe anxiety, skin warm and dry, PO clonopin administered, this RN spent 10 minutes therapeutic listening, wounds to right knee well-approximated, LS clear
[2017-12-28 01:32] VITALS: O2SAT 98
--- NOTE | 2017-12-28 04:28 | PC.NURSE ---
Pt is A and O x 4, VSS, incision sites scabbed over, TERRI and clean and dry. Pt denies pain and nausea and is able to sleep. Calm and cooperative.
[2017-12-28] MEDS: clonazePAM 0.5 MG TABLET 1 MG PO ×2 (10:47→20:53)
[2017-12-28] MEDS: METHADONE 10 MG TABLET PO (10:48)
[2017-12-28] MEDS: DOCUSATE 100 MG CAPSULE PO ×2 (10:48→20:53)
[2017-12-28] MEDS: ENOXAPARIN 40 MG/0.4 ML SYRINGE SUBCUT (10:50)
[2017-12-28] MEDS: NICOTINE 14 PATCH 14 MG TOP (10:52)
[2017-12-28] MEDS: SODIUM CHLORIDE 0.9% FLUSH 10 ML IV ×3 (10:59→20:53)
[2017-12-28 11:20] VITALS: BP 131/83; PULSE 113; RESP 16; TEMP 36.7; O2SAT 100
[2017-12-28 11:33] VITALS: PULSE 105; O2SAT 100
[2017-12-28] MEDS: SODIUM CHLORIDE 0.9% 250 ML 21 ML IV (13:46)
--- NOTE | 2017-12-28 14:04 | PC.NURSE ---
Day Shift- Pt compliant with care, able to make needs known. Denies pain, discomfort. Pt up indep in room, no issues. Right knee incisions X2 healed, no S/S of infection, slight edema surrounding incisions compared to left knee. CMS+. Right FA allevyn dressing CDI. pt stated feeling more anxious this AM, support provided, pt stated i might need my dose increased. Scheduled Clonazepam given 35 mins prior. Message left for Dr. Porter. Pt rec'd a piece of mail/envelope. Once given to pt, he stated I guess you want to see inside Business Unit Leader confirmed that, pt stated that is is his Contact lens container, seen by resume writer and NS instilled into each container for his contact lenses. Pt stated he has another package arriving from his girlfriend from [place].
--- NOTE | 2017-12-28 14:13 | P.PN_ITS ---
Subjective Date Patient Seen: 12/28/17 Interval history: Patient reports feeling very anxious. Despite Klonapin he still reports anxiety. He notes mild diarrhea as well today. Patient is willing to try another medication for anxiety Exam Vital Signs (past 8 hours): - 12/28/17 11:20 12/28/17 11:33 Temperature 98.0 F Pulse Rate 113 H 105 H Respiratory Rate 16 Blood Pressure 131/83 Pulse Oximetry 100 100 Oxygen Delivery Method Room Air Oxygen Flow Rate 0 Narrative Exam Narrative: Pleasant male anxious Lungs: clear to auscultation Cv: RRR nl Sl S2 2/6SEM Abd: soft/ non tender/ non distended Ext: no edema Objective Labs Result Diagrams: 12/27/17 05:35 12/27/17 05:35 Assessment & Plan (1) Anxiety: Problem details: Start buspar today Current visit: Yes Status: Acute (2) MRSA infection: Problem details: Daptomycin for 4 weeks, then 2 weeks oral antibiotics ( high dose Bactrim recommended) Infectious Disease discouraged the use of Zyvox as 4 weeks or more will result in thrombocytopenia and is not recommended Current visit: Yes Status: Acute (3) Septic joint of right knee joint: Problem details: Discussed with ID. Recommendations is for 4 weeks of IV Daptomycin and then switching to two weeks of oral antbiotics. Zyvox not recommended. Patient was unable to obtain therapeutic levels of vancomycin. Qualifiers: Septic arthritis organism: due to unspecified organism Qualified Code(s ): M00.9 - Pyogenic arthritis, unspecified Current visit: Yes Status: Acute (4) Drug abuse, IV: Problem details: On methadone, will continue at 10 mg daily Will discontinue IV pain medications and manage with oral meds only Current visit: Yes Status: Acute
--- NOTE | 2017-12-28 14:15 | P.PN_ITS ---
Subjective Date Patient Seen: 12/27/17 Interval history: Patient reports feeling anxious Exam Vital Signs (past 8 hours): - 12/28/17 11:20 12/28/17 11:33 Temperature 98.0 F Pulse Rate 113 H 105 H Respiratory Rate 16 Blood Pressure 131/83 Pulse Oximetry 100 100 Oxygen Delivery Method Room Air Oxygen Flow Rate 0 Narrative Exam Narrative: Pleasant male in NAD Lungs: clear to auscultation CV: RRR nl Sl S2 @2/6 NICK Abd: soft/ non tender/ ext: no edema Objective Labs Result Diagrams: 12/27/17 05:35 12/27/17 05:35 Assessment & Plan (1) Anxiety: Problem details: Start clonapin today Current visit: Yes Status: Acute (2) MRSA infection: Problem details: Daptomycin for 4 weeks, then 2 weeks oral antibiotics ( high dose Bactrim recommended) Infectious Disease discouraged the use of Zyvox as 4 weeks or more will result in thrombocytopenia and is not recommended Current visit: Yes Status: Acute (3) Septic joint of right knee joint: Problem details: Discussed with ID. Recommendations is for 4 weeks of IV Daptomycin and then switching to two weeks of oral antbiotics. Zyvox not recommended. Patient was unable to obtain therapeutic levels of vancomycin. Qualifiers: Septic arthritis organism: due to unspecified organism Qualified Code(s ): M00.9 - Pyogenic arthritis, unspecified Current visit: Yes Status: Acute (4) Drug abuse, IV: Problem details: On methadone, will continue at 10 mg daily Will discontinue IV pain medications and manage with oral meds only Current visit: Yes Status: Acute
[2017-12-28] MEDS: BUSPIRONE 5 MG TABLET 10 MG PO ×2 (14:51→20:53)
[2017-12-28 15:00] VITALS: O2SAT 99
[2017-12-28 20:00] VITALS: BP 147/79; PULSE 112; RESP 18; TEMP 37.2; O2SAT 100
[2017-12-28 23:30] VITALS: BP 130/74; PULSE 111; RESP 18; TEMP 36.9; O2SAT 100
[2017-12-29 00:48] VITALS: O2SAT 100
--- NOTE | 2017-12-29 00:49 | PC.NURSE ---
Addendum entered by Shaneka Mayer R.N. 12/29/17 06:40: Slept at intervals. No new events overnight. Original Note: Patient is alert and oriented. Breath sounds CTA with RA sat of 100%. HRR but tachy tonight at 110 bpm apical. Denies nausea. BT present and abdomen is soft; reports BM yesterday. Denies any urinary problems. Is up independent. Denies pain. Allevyn dressing to right forearm is CDI. Incisions medial/lateral knee well healed with knee still looking slightly larger than left. Fall risk score is moderate. Remains on contact isolation for MRSA in synovial fluids.
[2017-12-29] MEDS: NICOTINE 14 PATCH 14 MG TOP (08:53)
[2017-12-29] MEDS: clonazePAM 0.5 MG TABLET 1 MG PO ×2 (08:53→20:22)
[2017-12-29] MEDS: METHADONE 10 MG TABLET PO (08:53)
[2017-12-29] MEDS: DOCUSATE 100 MG CAPSULE PO ×2 (08:53→20:22)
[2017-12-29] MEDS: ENOXAPARIN 40 MG/0.4 ML SYRINGE SUBCUT (08:54)
[2017-12-29] MEDS: SODIUM CHLORIDE 0.9% FLUSH 10 ML IV ×4 (08:54→20:22)
[2017-12-29] MEDS: BUSPIRONE 5 MG TABLET 10 MG PO ×2 (08:54→20:22)
[2017-12-29 09:00] VITALS: O2SAT 96
[2017-12-29 10:42] VITALS: BP 126/85; PULSE 108; RESP 14; TEMP 36.6; O2SAT 100
--- NOTE | 2017-12-29 13:05 | P.PN_ITS ---
Subjective Date Patient Seen: 12/29/17 Time Patient Seen: 13:02 Interval history: He is friendly and cooperative today. This is 1 of many severe infections he has sustained from his IV injection drug abuse. He is looking forward to discharge on January 08. Exam Vital Signs (past 8 hours): - 12/29/17 09:00 12/29/17 10:42 Temperature 97.9 F Pulse Rate 108 H Respiratory Rate 14 Blood Pressure 126/85 Pulse Oximetry 96 100 Oxygen Delivery Method Room Air Oxygen Flow Rate 0 Narrative Exam Narrative: Alert, oriented x3, no apparent distress, heart regular rate and rhythm without murmur, lungs clear to auscultation bilaterally, extremities without ankle edema. There is mild right knee swelling. Objective Labs Result Diagrams: 12/27/17 05:35 12/27/17 05:35 Assessment & Plan (1) MRSA infection: Problem details: Daptomycin for 4 weeks, then 2 weeks oral antibiotics ( high dose Bactrim recommended) Infectious Disease discouraged the use of Zyvox as 4 weeks or more will result in thrombocytopenia and is not recommended Current visit: Yes Status: Acute (2) Septic joint of right knee joint: Problem details: Discussed with ID previously. Recommendations is for 4 weeks of IV Daptomycin and then switching to two weeks of oral antbiotics. Zyvox not recommended. Patient was unable to obtain therapeutic levels of vancomycin. Qualifiers: Septic arthritis organism: due to unspecified organism Qualified Code(s ): M00.9 - Pyogenic arthritis, unspecified Current visit: Yes Status: Acute (3) Drug abuse, IV: Problem details: On methadone, will continue at 10 mg daily No longer on IV pain medications and managed with oral meds only Current visit: Yes Status: Acute (4) Anxiety: Problem details: Continue clonazepam and buspirone. Current visit: Yes Status: Acute
[2017-12-29] MEDS: SODIUM CHLORIDE 0.9% 250 ML 21 ML IV (14:06)
--- NOTE | 2017-12-29 14:44 | PC.NURSE ---
Day Shift- No voiced concerns by pt, cooperative and pleasant. No visitors this shift. RAFA PICC flushes well with brisk blood return. Up indep in room. Denies pain, Right FA allevyn dressing CDI covering skin ulcer site. Right knee incisions X2 healed, slight edema compared to left knee. States has daily BM's. HE tachy at 95bpm to 113bpm on pulse O2 monitor. Denies chest pain. Left message for hospitalist at 1440.
[2017-12-29 15:00] VITALS: O2SAT 98
--- NOTE | 2017-12-29 16:08 | CM.DPC ---
DCP Cont: Received call from Suma rush/[employer] P# [phone], she explained pt had been referred to their [facility] program which was a more hands on approach to outpt care. A artists' booking representative could come to pt's bedside to review outpt resources available. Suma also explained that since pt has a Medicaid [facility] plan; an authorization for inpt D/A rehab like [facility] in [place] would need to go through [facility] P# [phone]. HOSPICE CLINICAL MARKETER team will follow closely and if no SNF accepts, and final abx dosing approaches, re-assessment of pt's desire towards inpt rehab will be needed. ARSH Parkinson
[2017-12-29 20:43] VITALS: BP 139/85; PULSE 101; RESP 19; TEMP 36.7; O2SAT 100
[2017-12-30] VITALS: BP 139/81; PULSE 103; RESP 16; TEMP 36.6; O2SAT 97
[2017-12-30] MEDS: ONDANSETRON 4 MG/2 ML INJ IV (00:22)
[2017-12-30 00:30] VITALS: O2SAT 97
[2017-12-30] MEDS: ENOXAPARIN 40 MG/0.4 ML SYRINGE SUBCUT (09:28)
[2017-12-30] MEDS: clonazePAM 0.5 MG TABLET 1 MG PO ×2 (09:28→20:59)
[2017-12-30] MEDS: DOCUSATE 100 MG CAPSULE PO (09:28)
[2017-12-30] MEDS: METHADONE 10 MG TABLET PO (09:28)
[2017-12-30] MEDS: BUSPIRONE 5 MG TABLET 10 MG PO ×2 (09:28→20:53)
[2017-12-30] MEDS: SODIUM CHLORIDE 0.9% FLUSH 10 ML IV ×2 (09:30→20:54)
[2017-12-30] MEDS: NICOTINE 14 PATCH 14 MG TOP (09:30)
[2017-12-30 09:32] VITALS: O2SAT 96
[2017-12-30 11:02] VITALS: BP 119/71; PULSE 101; RESP 20; TEMP 37; O2SAT 99
--- NOTE | 2017-12-30 12:52 | PM.PN.1 ---
Subjective Interval history: Number no new events no new issues in the past 24 hr Exam Vital Signs (past 8 hours): - 12/30/17 09:32 12/30/17 11:02 Temperature 98.6 F Pulse Rate 101 H Respiratory Rate 20 Blood Pressure 119/71 Pulse Oximetry 96 99 Oxygen Delivery Method Room Air Oxygen Flow Rate 0 Narrative Exam Narrative: General: NAD Cardiovascular unremarkable Abdomen benign Extremities full range of motion no clubbing edema or cyanosis; bilateral right knee incision wounds cleaned without signs symptoms of infection. Left upper extremity PICC line in place Neurological awake alert oriented x3. Grossly nonfocal Objective Labs Result Diagrams: 12/27/17 05:35 12/27/17 05:35 Assessment & Plan Plan: Assessment/Plan Narrative: 1. MRSA Septic R knee Joint S/P Wash out by orthopedicas 12/07/17 - Continue Daptomycin IV for a total of 4 weeks (stop date Jan 08) and then switch to High Dose Bactrim for 2 more weeks - Pending placement 2. Heroin Addiction - Chronic - Methadone decreased to 10mg Daily - Patient is interested in rehab once he is medically stable
[2017-12-30 15:31] VITALS: BP 134/84; PULSE 104; RESP 20; TEMP 36.8; O2SAT 100
--- NOTE | 2017-12-30 22:09 | PC.NURSE ---
Pt is A and O x4, VSS. Pt incision sites clean and dry, scabbed over. R knee swelling minimal. Pt denies pain, nausea and is eating and drinking every other day BM and voiding clear yellow qs. Pt had numerous visitors this shift, no change in behavior noted.
[2017-12-30 23:30] VITALS: BP 133/85; PULSE 128; RESP 16; TEMP 37.1; O2SAT 99
[2017-12-31] VITALS: O2SAT 99
[2017-12-31 03:00] VITALS: PULSE 81; O2SAT 99
--- NOTE | 2017-12-31 03:08 | PC.NURSE ---
Addendum entered by Rama Booth R.N. 12/31/17 05:53: Notified while on lunch break, via volcera by charge nurse that pt was missing from room. Pt had been ambulating in hallway and was seen taking elevator downstairs and witnessed by security to be getting into vehicle. Called [employer] dispatch to notify of pt's description and asked for pt to be brought back to [facility] to have PICC line removed if found. [employer] called back 20min later to say pt was not at last known address and they would continue to look for him. Original Note: Noticed pt HR charted at 128 earlier in shift. Entered room to recheck HR and room smelled faintly of cigarette smoke. Asked pt if he was smoking and initially he denied, stating that the smell could have come in from outside, but quickly apologized admitting to smoking 1 cigarette in the bathroom. States that he has no additional cigarettes and flushed the finished cigarette butt. Bathroom smells strongly of cigarette odor, garbage is empty. Pt instructed he is not allowed to smoke on hospital property and charge nurse informed. HR was in 80's during reassessment.
--- NOTE | 2017-12-31 04:38 | PM.EVENT ---
Date Patient Seen: 12/31/17 Time Patient Seen: 04:35 Notified by pump house engineer the patient just the Z[facility] has left [facility]. Specifically the patient was seen by security getting into a car outside of the hospital. It is reported the patient did not have any problems overnight that would prompt the aforementioned event. However, a being told that his friends were visiting frequently through the night. Patient does have a history of heroin abuse. He left with a PICC line. I am being told that the police will be notified for this reason, as the PICC line needs to be removed. I spoke to patient's nurse, who made me aware that there was suspicion of patient using tobacco last night, which was attributed to the tobacco odor that was evident in patient's room. Admitting told of the patient's room was searched, no tobacco products found. The earlier this more burning patient asked to take a walk outside of the holes. It appears that he has placed street clothes underneath with this hospital gown and then on top of that the isolation gown. Thereafter patient was seen to be leaving hospital.
--- NOTE | 2017-12-31 04:39 | PC.NURSE ---
ARLINE Medeiros reported to me that someone with street clothes on and a yellow gown got on the elevator. Noted by staff that patient was missing from his room. ARLINE giang patient reports that he was up walking the halls. Security called and he reported that he saw a gentleman leave and get into a car and they left. Hospitalists notified. Call placed to [employer] to see if they would go to his place and bring him back to have his PICC line removed.
--- NOTE | 2017-12-31 04:41 | P.EN_ITS ---
Date Patient Seen: 12/31/17 Time Patient Seen: 04:35 Notified by houseman the patient just the Z[facility] has left [facility]. Specifically the patient was seen by security getting into a car outside of the hospital. It is reported the patient did not have any problems overnight that would prompt the aforementioned event. However, a being told that his friends were visiting frequently through the night. Patient does have a history of heroin abuse. He left with a PICC line. I am being told that the police will be notified for this reason, as the PICC line needs to be removed. I spoke to patient's nurse, who made me aware that there was suspicion of patient using tobacco last night, which was attributed to the tobacco odor that was evident in patient's room. Admitting told of the patient's room was searched, no tobacco products found. The earlier this more burning patient asked to take a walk outside of the holes. It appears that he has placed street clothes underneath with this hospital gown and then on top of that the isolation gown. Thereafter patient was seen to be leaving hospital.
== END 2018-01-05 12:32 | disposition left against medical advice (07) | DRG 313 ==
LOC: ED 12-07 01:28 → AC 12-07 06:03
PROVIDERS: Internal Medicine; Orthopaedic Surgery; Admitting Provider Internal Medicine; Emergency Provider Emergency Medicine; Visit Provider Internal Medicine
PROC: 0S9C00Z Drainage of Right Knee Joint with Drainage Device, Open Approach (ICD-10-PCS; principal; 2017-12-07 19:00)
DX: M00.061 Staphylococcal arthritis, right knee (principal); B95.62 Methicillin resistant Staphylococcus aureus infection as the cause of diseases classified elsewhere; F11.23 Opioid dependence with withdrawal; F17.210 Nicotine dependence, cigarettes, uncomplicated; Z59.0 Homelessness; F41.9 Anxiety disorder, unspecified; Z53.21 Procedure and treatment not carried out due to patient leaving prior to being seen by health care provider; E83.52 Hypercalcemia; F32.9 Major depressive disorder, single episode, unspecified
CPT/HCPCS: 20610; 36415; 36569; 36591; 36592; 73562; 80048; 80053; 80202; 80305; 83605; 84145; 84550; 85025; 85027; 85651; 86140; 87040; 87070; 87075; 87147; 87186; 87205; 89051; 89060; 93307; 96365; 96375; 97110; 97116; 97162; 97530; 99282; 99283; 99285; 99406; J0696; J0878; J1170; J1642; J1650; J2250; J2270; J2405; J2704; J3010; J3370

== ENCOUNTER 2017-12-31 16:44 | Inpatient (IN) | payer OTHER, MEDICAID, SELFPAY ==
[2017-12-07 02:21] VITALS: BMI 22.8
[2017-12-31 16:54] VITALS: BP 149/100; PULSE 132; RESP 20; TEMP 37; O2SAT 99; BMI 23.0
--- NOTE | 2017-12-31 20:43 | PC.NURSE ---
Patient requesting to get belongings back after he left AMA 12/31/17 around 0400. White plastic bag found at the acute care main nurses station with numerous items in it (clothes, boots, manila envelope). Gave items to ED SENIOR MARKET RESEARCH ANALYST to return to patient.
[2017-12-31 20:57] LABS: Add Manual Diff / Slide Review NO; Basophils Percent Auto 0.7 % (0-2); Eosinophils Percent Auto 2.6 % (2-4); Hematocrit 41.2 % (41-53); Hemoglobin 13.9 g/dL (13.5-17.5); Lymphocytes Percent Auto 28.9 % (25-40); Mean Corpuscular HGB Conc 33.8 % (30-36); Mean Corpuscular Hemoglobin 28.3 PG (26-34); Mean Corpuscular Volume 83.6 fL (80-100); Monocytes Percent Auto 8.9 % (3-14); Neutrophils Absolute Auto 5200 /uL (3000-5900); Neutrophils Percent Auto 58.9 % (50-75); Platelet Count 382 X10^3/uL (150-400); Red Blood Cell Count 4.92 X10^6/uL (4.5-5.9); Red Cell Distribution Width 16.7 % (11.6-14.8); White Blood Cell Count 8.8 X10^3/uL (4.5-11.0)
[2017-12-31 21:02] LABS: Urine Cocaine Negative (Negative); Urine Morphine/Opi cutoff 2000 Positive (Negative); Urine Tetrahydrocannabinol Negative (Negative)
[2017-12-31 21:03] LABS: Urine Amphetamines Positive (Negative); Urine Barbiturates Negative (Negative); Urine Benzodiazepines Positive (Negative); Urine MDMA Negative (Negative); Urine Methadone Positive (Negative); Urine Methamphetamines Positive (Negative); Urine Oxycodone Positive (Negative); Urine Phencyclidine Negative (Negative); Urine Tricyclic Antidepressant Negative (Negative)
[2017-12-31 21:13] LABS: Blood Urea Nitrogen 25 mg/dL (9-20); Calcium 10.4 mg/dL (8.4-10.2); Carbon Dioxide 22 mmol/L (22-32); Chloride 101 mmol/L (98-107); Estimated Glomerular Filt Rate > 60.0 mL/min (>60); Glucose 92 mg/dL (70-100); HEMOLYSIS < 15 (0-50); Potassium 4.1 mmol/L (3.4-5.1); Sodium 141 mmol/L (137-145)
--- NOTE | 2017-12-31 21:30 | PC.NURSE ---
PICC line removed per protocol from L upper arm. Pt tolerated well. No S/S infection. Tip intact.
[2017-12-31 21:59] VITALS: BP 116/72; PULSE 104; RESP 18; TEMP 36.6; O2SAT 99
--- NOTE | 2017-12-31 22:08 | PC.NURSE ---
Pt arrived on unit at 2200. Calm and cooperative and blase regarding drug use and AMA. VSS A and O x 4.
[2017-12-31 22:14] VITALS: BP 139/78; PULSE 103; RESP 17; TEMP 36.4; O2SAT 98
--- NOTE | 2017-12-31 22:31 | PC.NURSE ---
Pt to room 227 ambulatory from E.R. accompanied by MACHINE SHOP INSTRUCTOR. Pt has single belongings bag in possession. With pt's consent, this insurance underwriter sales searched pt's bag with contents as follows: pair of shoes, numerous small rocks, contact lense case, wallet (which pt declines to secure in safe), cell phone and administrative services specialist, clipboard, scarf and sweatshirt. No drugs or other medications found. Pt admits to use of < 1 gram of heroin today for anxiety. Pt is restless, moving about room constantly with dilated pupils. Pressured speech. Legal Intern, Julieta, approaches pt in room and informs pt will be treated as a behavior pt due to recent absence against medical advice. Pt has peripheral line in place. Requests staff assist to phone girlfriend @ [facility]. This was done and call transferred into pt by MACHINE SHOP INSTRUCTOR. Door closed per pt request, but curtain to remain open for staff to observe pt and pt's visitors/behaviors. This was explained to pt. Awaiting transfer orders.
[2017-12-31 23:00] VITALS: BP 129/100; PULSE 110; RESP 16; TEMP 36.9; O2SAT 97
[2017-12-31] MEDS: SODIUM CHLORIDE 0.9% FLUSH 10 ML IV (23:33)
[2017-12-31] MEDS: SODIUM CHLORIDE 0.9% 250 ML 21 ML IV (23:34)
--- NOTE | 2018-01-01 00:14 | PC.NURSE ---
Addendum entered by Shaneka Mayer R.N. 01/01/18 06:12: Patient has been asleep past several hours. BP this morning 105/49 with HR in 80's. Telemetry reading (initiated around 0200) has been SR. IVF infusing. Patient refused ordered SCD's, but will be receiving Lovenox daily. Denies any pain and states anxiety has improved. Remains on contact isolation. Original Note: Patient is alert and oriented but slightly anxious wondering when he will get his meds. Breath sounds CTA with RA sat of 97%. HRR but tachy at 110 and BP elevated at 129/100. Denies nausea. BT present and abdomen is soft. Denies urinary problems. Allevyn dressing to right forearm is CDI. Skin around PICC insertion site (now removed) is reddened with gauze dressing CDI. Knee incisions are healed but still some slight swelling of knee noted. Denies pain. Independent with mobility. On contact isolation for MRSA in synovial fluid. Fall risk score is moderate. Due to patient leaving AMA and substance use he is in room where staff can watch closely.
--- NOTE | 2018-01-01 00:53 | PM.HP.1 ---
History of Present Illness Date Patient Seen: 01/01/18 Time Patient Seen: 00:53 Chief complaint: Left AMA from Acute Care last night, wants PIC rem Narrative: The patient is a 32-year-old male with PMH of IV substance abuse, anxiety, depression, and tobacco dependence. Patient left the hospital prematurely / AMA on 12/31 at 4:30 am. He is returning back to continue his empiric therapy. Patient notes that he left prematurely because he was trying to help a friend. While away he does admit to doing heroin to subdue his anxiety. Patient was recently hospitalized from 12/07 through 12/31 for pyogenic arthritis. He underwent arthrotomy of the right knee with irrigation and debridement on 12/[address] Gagnon. Aspirate cultures were positive for MRSA. POD 25 (on 01/01). Initially treated with Zyvox and Vancomycin. Per collaboration with Infectious Disease, recommendations were made for a 4 week course with Daptomycin (started on 12/11, anticipated end date 01/08/18), which is then to followed by a 2 week course of high dose Bactrim. Extended treatment with Zyvox was discouraged due to risk of thrombocytopenia. Patient was unable to achieve therapeutic levels with Vancomycin. In regard to his right knee... Denies pain, edema, and erythema. Reports anxiety and depression. Denies active thoughts of harm's for ideation toward self of others. Denies fever/chills, chest pain, palpitations, dizziness / lightheadedness, dyspnea, abdominal pain, nausea, vomiting, and diarrhea. Patient's PICC line was removed in the ED. At present time IV access in the form of peripheral IV catheter. Patient History Medical History Anxiety and depression (Acute) Pyogenic arthritis of knee (Acute) Opioid abuse (Acute) Opioid abuse with intoxication delirium (Acute) Opioid dependence with withdrawal (Acute) Surgical History No pertinent past surgical history (Acute) Family & Social History Family History: Reviewed 01/01/18 by RUBI Cisneros Social History: household members none Safety & Behavioral: Feels Safe in Current Yes Environment Tobacco & Substance use: Tobacco type cigarettes Smoking Status Current every day smoker alcohol intake occasionally alcohol intake frequency 0-2 drinks per day Substance Use Type former substance user,marijuana Meds Home Medications Medication Instructions Recorded Confirmed Type buspirone 10 mg PO BID 01/01/18 01/01/18 History clonazepam 1 mg PO BID 01/01/18 01/01/18 History daptomycin 600 mg IV DAILY 01/01/18 01/01/18 History docusate sodium 100 mg PO BID 01/01/18 01/01/18 History enoxaparin [Lovenox] 40 mg SUBCUT DAILY 01/01/18 01/01/18 History methadone 10 mg PO DAILY 01/01/18 01/01/18 History Allergies Allergy/AdvReac Type Severity Reaction Status Date / Time No Known Drug Allergies Allergy Verified 12/31/17 17:00 Review of Systems Review of Systems All systems reviewed & are unremarkable except as noted in HPI and below Exam Vital Signs (past 8 hours): - 12/31/17 16:54 12/31/17 21:59 12/31/17 22:14 Temperature 98.6 F 98 F 97.6 F Pulse Rate 132 H 104 H 103 H Respiratory Rate 20 18 17 Blood Pressure 149/100 H 116/72 139/78 Pulse Oximetry 99 99 98 12/31/17 23:00 Temperature 98.4 F Pulse Rate 110 H Respiratory Rate 16 Blood Pressure 129/100 H Pulse Oximetry 97 Oxygen Delivery Method Room Air Narrative Exam Narrative: Constitutional: Anxious and agitated, no diaphoresis Head: NC / AT EENT: Gaze conjugate, pupils equal and reactive, sclera anicteric, no lacrimation; external ears normal w/o drainage; external nose normal without rhinorrhea or epistaxis; oropharynx without lesions or exudates Neck: no lymphadenopathy, normal ROM, no JVD Chest: non-tender, equal chest rise Resp: CTAB, no dyspnea or tachypnea Cardio: S1S2, no murmur; + tachycardia GI: Soft, NT/ND, normoactive BS, : No suprapubic tenderness Skin: Warm, intact - no lesions, ulcers, bruising; right knee incision healed - no drainage Ext: no edema, distal pulses palpable bilaterally; right knee w/ no tenderness or s/s of effusion Neuro: AOx3, no focal deficits, no tremor Psych: anxious Objective Labs Result Diagrams: 12/31/17 20:44 12/31/17 20:44 Labs: Laboratory Results - last 24 hr 12/31/17 12/31/17 12/31/17 19:50 20:44 20:44 WBC 8.8 RBC 4.92 Hgb 13.9 Hct 41.2 MCV 83.6 MCH 28.3 MCHC 33.8 RDW 16.7 H Plt Count 382 Neut % (Auto) 58.9 Lymph % (Auto) 28.9 [place] % (Auto) 8.9 Eos % (Auto) 2.6 Baso % (Auto) 0.7 Neut # (Auto) 5200 Sodium 141 Potassium 4.1 Chloride 101 Carbon Dioxide 22 BUN 25 H Creatinine 1.00 Estimated GFR > 60.0 BUN/Creatinine Ratio 25.0 H Glucose 92 Calcium 10.4 H Urine Opiates Screen Positive H Ur Oxycodone Screen Positive H Urine Methadone Screen Positive H Ur Barbiturates Screen Negative U Tricyclic Antidepress Negative Ur Phencyclidine Scrn Negative Ur Amphetamines Screen Positive H U Methamphetamines Scrn Positive H Ur MDMA Scrn (Ecstasy) Negative U Benzodiazepines Scrn Positive H Urine Cocaine Screen Negative U Marijuana (THC) Screen Negative Assessment & Plan Plan: Assessment/Plan Narrative: Pyogenic Arthritis s/p arthrotomy of the right knee w/ I&D (12/07). Aspirate cx + MRSA. - Daptomycin 600 mg IV Q24H (stop date 01/08/2018) - full weight-bearing and ROM as tolerated Hypercalcemia - IVF x24 hours then re-evaluate / d/c - BMP in am Heroin Dependence with symptoms of withdrawal UDS positive for opiates, oxycodone, methadone, amphetamines, methamphetamines, and benzodiazepines + Tachycardia and HTN. No abdominal pain, N/V/D. - clonidine 0.1 mg Q6H for symptoms of opioid withdrawal Anxiety - buspirone 10 mg BID - clonazepam 1 mg PO BID
[2018-01-01 01:59] VITALS: BP 129/100; PULSE 110
[2018-01-01] MEDS: SODIUM CHLORIDE 0.9% 1,000 ML 80 ML IV (01:59)
[2018-01-01] MEDS: cloNIDine 0.1 MG TABLET PO (01:59)
[2018-01-01] MEDS: BUSPIRONE 5 MG TABLET 10 MG PO ×3 (02:00→20:12)
[2018-01-01] MEDS: clonazePAM 0.5 MG TABLET 1 MG PO ×3 (02:00→20:12)
[2018-01-01] MEDS: SODIUM CHLORIDE 0.9% FLUSH 10 ML IV (02:00)
--- NOTE | 2018-01-01 02:20 | ED_ITS ---
HPI - Recheck/Abnormal Lab/Rx General Chief Complaint: Recheck/Abnormal Lab/Rx Stated Complaint: Left AMA from Acute Care last night, wants PIC rem Time Seen by Provider: 12/31/17 17:57 Source: patient and family Mode of arrival: ambulatory Limitations: no limitations History of Present Illness HPI narrative: 32-year-old male, IV drug abuser presents to the emergency department stating he needs to be readmitted to the hospital. He has been in the hospital since December 06 receiving IV antibiotics for septic right knee. He had been taken the operating room for surgical washout and has been daptomycin. Yesterday he left AMA stating he had to help friend. His PICC line was in place. He admits to smoking some heroin but stating he did not put anything through the PICC line. He denies any ongoing fever or chills and states his right knee is much better. He is supposed to be on IV antibiotics until January complaint: wound re-check Initial visit (ago): week(s) Initial visit for: cellulitis and abscess Returns today for: wound recheck and needs IV antibiotics Symptoms since prior visit: no new symptoms Associated symptoms: none Related Data Home Medications Medication Instructions Recorded Confirmed buspirone 10 mg PO BID 01/01/18 01/01/18 clonazepam 1 mg PO BID 01/01/18 01/01/18 daptomycin 600 mg IV DAILY 01/01/18 01/01/18 docusate sodium 100 mg PO BID 01/01/18 01/01/18 enoxaparin [Lovenox] 40 mg SUBCUT DAILY 01/01/18 01/01/18 methadone 10 mg PO DAILY 01/01/18 01/01/18 Allergies Allergy/AdvReac Type Severity Reaction Status Date / Time No Known Drug Allergies Allergy Verified 12/31/17 17:00 Review of Systems Review of Systems All systems reviewed & are unremarkable except as noted in HPI and below Constitutional Denies chills, Denies fever(s), Denies lethargy and Denies weakness Eyes Denies change in vision, Denies eye discharge, Denies irritation and Denies loss of vision ENT Ears, Nose, Mouth, and Throat: Denies change in voice, Denies neck pain and Denies sore throat Cardiovascular Denies chest pain, Denies irregular heart rhythm, Denies lightheadedness, Denies palpitations, Denies dyspnea, Denies dyspnea on exertion and Denies orthopnea Respiratory Denies cough, Denies dyspnea, Denies dyspnea on exertion and Denies wheezing Gastrointestinal Gastrointestinal: Denies abdominal pain, Denies change in bowel habits, Denies diarrhea, Denies nausea and Denies vomiting Genitourinary Denies hematuria, Denies flank pain, Denies urinary incontinence and Denies urinary urgency Musculoskeletal Denies neck pain Integumentary/Breasts Denies pruritus, Denies erythema, Denies rash and Denies wounds Neurologic Denies confusion, Denies loss of vision and Denies weakness Psychiatric Denies anxiety, Denies confusion, Denies depression, Denies homicidal ideation and Denies suicidal ideation Endocrine Denies palpitations Hematologic/Lymphatic Denies easy bruising Allergic/Immunologic Denies wheezing [facility] Medical History Anxiety and depression (Acute) Pyogenic arthritis of knee (Acute) Opioid abuse (Acute) Opioid abuse with intoxication delirium (Acute) Opioid dependence with withdrawal (Acute) Surgical History No pertinent past surgical history (Acute) Family History Mother No known health problems Father No known health problems Social History household members: none Smoking Status: Current every day smoker alcohol intake: never Exam Narrative Exam Narrative: GEN: AOx3 and in mild distress EYES: Pupils are equal, round, and reactive to light and accommodation. Extraoccular muscles are intact bilaterally. There is no subconjunctival hemorrhage or exudate. CHEST: Lungs are clear to auscultation bilaterally and free of wheezes, rales, or rhonchi. Heart rate is regular rhythm, there are no murmurs, clicks, rubs, or gallops. There is no chest wall tenderness. ABD: Abdomen is soft and nontender. There is no guarding or rebound. Bowel sounds are normal in all 4 quadrants. There is no mass or organomegaly. EXT: PICC line in place, left upper extremity Full painless ROM of all extremities with no loss of sensation or strength. Right knee without erythema , swelling or warmth SKIN: Warm, pink, and dry. No erythema or rash Initial Vital Signs Initial Vital Signs: Vital Signs Temperature 98.6 F 12/31/17 16:54 Pulse Rate 132 H 12/31/17 16:54 Respiratory Rate 20 12/31/17 16:54 Blood Pressure 149/100 H 12/31/17 16:54 Pulse Oximetry 99 12/31/17 16:54 Course Orders Ordered: ED Orders 12/31/17 19:50 Urine Drug Screen, Rapid Stat 12/31/17 20:44 Basic Metabolic Panel Stat Complete Blood Count AUTO DIFF Stat 01/01/18 08:00 Basic Metabolic Panel Routine Buspirone HCl (Buspar) 10 mg PO BID JAYSON Last Admin: 01/01/18 02:00 Dose: 10 mg Clonazepam (Klonopin) 1 mg PO BID JAYSON Last Admin: 01/01/18 02:00 Dose: 1 mg Clonidine HCl (Catapres) 0.1 mg PO Q6H JAYSON Last Admin: 01/01/18 01:59 Dose: 0.1 mg Docusate Sodium (Colace) 100 mg PO BID PRN PRN Reason: Constipation Enoxaparin Sodium (Lovenox) 40 mg SUBCUT DAILY [facility] Daptomycin 600 mg/ Sodium (Chloride) 50 mls @ 100 mls/hr IV Q24H JAYSON Last Infusion: 01/01/18 00:17 Dose: 0 mls/hr Admin: 12/31/17 23:01 Dose: 100 mls/hr Sodium Chloride (Normal Saline 0.9%) 250 mls @ 21 mls/hr IV Q24H PRN PRN Reason: Flush Last Infusion: 01/01/18 02:03 Dose: 0 mls/hr Admin: 12/31/17 23:34 Dose: 21 mls/hr Sodium Chloride (Normal Saline 0.9%) 1,000 mls @ 80 mls/hr IV CONT JAYSON Last Admin: 01/01/18 01:59 Dose: 80 mls/hr Melatonin (Melatonin) 6 mg PO BEDTIME JAYSON Sodium Chloride (Normal Saline 0.9% Flush) 10 ml IV PRN PRN PRN Reason: Flush Last Admin: 01/01/18 02:00 Dose: 10 ml Discontinued Medications Heparin Sodium (Porcine) (Heparin) 5,000 unit SUBCUT BID JAYSON Sodium Chloride (Normal Saline 0.9% Flush) 10 ml IV BID JAYSON Last Admin: 10/28/18 23:33 Dose: 10 ml Reevaluation(s) Reevaluation #1: nursing has removed PICC line Consultations Consultation #1: hospitalist happy to accept Vital Signs - 8 hr 12/31/17 21:59 12/31/17 22:14 12/31/17 23:00 Temperature 98 F 97.6 F 98.4 F Pulse Rate 104 H 103 H 110 H Respiratory Rate 18 17 16 Blood Pressure 116/72 139/78 129/100 H Pulse Oximetry 99 98 97 01/01/18 01:59 Temperature Pulse Rate 110 H Respiratory Rate Blood Pressure 129/100 H Pulse Oximetry MDM - Recheck/Abnormal Lab/Rx Lab Data Result diagrams: 12/31/17 20:44 12/31/17 20:44 Lab Results 12/31/17 12/31/17 12/31/17 Range/Units 19:50 20:44 20:44 WBC 8.8 (4.5-11.0) X10^3/uL RBC 4.92 (4.5-5.9) X10^6/uL Hgb 13.9 (13.5-17.5) g/dL Hct 41.2 (41-53) % MCV 83.6 (80-100) fL MCH 28.3 (26-34) PG MCHC 33.8 (30-36) % RDW 16.7 H (11.6-14.8) % Plt Count 382 (150-400) X10^3/uL Neut % (Auto) 58.9 (50-75) % Lymph % (Auto) 28.9 (25-40) % [place] % (Auto) 8.9 (3-14) % Eos % (Auto) 2.6 (2-4) % Baso % (Auto) 0.7 (0-2) % Neut # (Auto) 5200 (0207-8061) /uL Sodium 141 (137-145) mmol/L Potassium 4.1 (3.4-5.1) mmol/L Chloride 101 (98-107) mmol/L Carbon Dioxide 22 (22-32) mmol/L BUN 25 H (9-20) mg/dL Creatinine 1.00 (0.66-1.25) mg/dL Estimated GFR > 60.0 (>60) mL/min BUN/Creatinine Ratio 25.0 H (6-22) Glucose 92 (70-100) mg/dL Calcium 10.4 H (8.4-10.2) mg/dL Urine Opiates Screen Positive H (Negative) Ur Oxycodone Screen Positive H (Negative) Urine Methadone Screen Positive H (Negative) Ur Barbiturates Screen Negative (Negative) U Tricyclic Antidepress Negative (Negative) Ur Phencyclidine Scrn Negative (Negative) Ur Amphetamines Screen Positive H (Negative) U Methamphetamines Scrn Positive H (Negative) Ur MDMA Scrn (Ecstasy) Negative (Negative) U Benzodiazepines Scrn Positive H (Negative) Urine Cocaine Screen Negative (Negative) U Marijuana (THC) Screen Negative (Negative) Discharge Plan Departure Patient Disposition: Admitted As Inpatient Clinical Impression: Septic joint of right knee joint Discharge Date/Time: 12/31/17 22:02 Interventions: ED Discharge Assessment Last Done: 12/31/17 21:59 Admit Date/Time: 12/31/17 21:30 Admit Provider: Conrelius Dalton
[2018-01-01 06:13] VITALS: BP 105/49; PULSE 78; RESP 16; TEMP 35.9; O2SAT 98
[2018-01-01 08:00] VITALS: BP 96/71; PULSE 70; RESP 16; TEMP 36.1; O2SAT 100
[2018-01-01 09:22] LABS: Blood Urea Nitrogen 24 mg/dL (9-20); Calcium 9.6 mg/dL (8.4-10.2); Carbon Dioxide 23 mmol/L (22-32); Chloride 104 mmol/L (98-107); Estimated Glomerular Filt Rate > 60.0 mL/min (>60); Glucose 84 mg/dL (70-100); HEMOLYSIS < 15 (0-50); Potassium 3.9 mmol/L (3.4-5.1); Sodium 143 mmol/L (137-145)
[2018-01-01] MEDS: ENOXAPARIN 40 MG/0.4 ML SYRINGE SUBCUT (10:23)
--- NOTE | 2018-01-01 11:02 | PC.SBAR ---
SITUATION: Risk for injury r/t heroin withdrawal and anxiety [] BACKGROUND: Patient left AMA yesterday 12/31/17 and reports smoking heroin; IV abx needed for 6 more days [] ASSESSMENT: Patient visible from nurse's station, sitting up to chair; curtains open, sign posted for visitors to check in with nurse [] RECOMMENDATION: continue patient checks Q1, maintain calm environment and administer anti-anxiety meds [] RESPONSE: patient calm and cooperative, patient denies delirium, chest pain, headache, n/v []
[2018-01-01 12:00] VITALS: BP 103/46; PULSE 75; RESP 16; TEMP 36.4; O2SAT 99
--- NOTE | 2018-01-01 13:58 | CM.DANOTE ---
DCP/Assessment: Reviewed chart. Patient known to this WHEEL TRUING MACHINE TENDER from initial admit on 12-07-17. Patient with h/o IVDU specifically heroin dependence. Per notes, patient left AMA on 12-30-17 and returned on 12-31-17. Patient currently being hospitalized for IV abx course which is scheduled to be done on January 08. CM team has been attempting SNF placement since first week of initial admit but unable to secure because of patient's history of IVDU. Therefore, financial agreement made with [facility] and [facility] to complete IV abx course at [facility] while continuing to attempt SNF placement. WHEEL TRUING MACHINE TENDER met with patient this AM. Initial response from patient when seeing WHEEL TRUING MACHINE TENDER was defensiveness. Patient reports that I'm tired of explaining to everyone why I left. Notified patient that WHEEL TRUING MACHINE TENDER not here to sample coordinator but rather to assist with next steps. Patient calmed down and reports that he left because his friend needed help. Patient reports that his friend was having difficulty with other individuals and he felt he needed to assist. Patient asked by WHEEL TRUING MACHINE TENDER if he used any substances when he left and he reports that he used heroin and meth when he was out of the hospital. Patient reports that he did not use his PICC line for either drug rather, he smoked it. Patient reports that he feels very guilty that he used and continues to request that CM team attempt to find inpatient substance abuse treatment for him. Notified patient that WHEEL TRUING MACHINE TENDER would attempt but that there were no guarantees that we would be able to secure inpatient placement out of the [facility] and that he might have to do some close follow up after he is discharged. Patient understands. Patient reports that he does not want to go anywhere in [facility] if possible. Patient's preference is [facility] in [place]. WHEEL TRUING MACHINE TENDER called [facility] and they report that they [facility] but not beds today. Plus they add that in order to accept they would need to have CD assessment completed by [facility]'s preferred chemical dependency agency. Therefore, placed call to [facility] at [phone] ext# [phone] (contact Iris). Left VM requesting call back and whether or not they could do inpatient CD assessment during hospitalization or if this needed to be done as outpatient. Also left message [facility] contact Navin Cintron # [phone] ext#[phone] requesting return phone call re: all of the above and if process for inpatient treatment can be expedited. In AM rounds, mentioned patient coming [facility] as outpatient for remaining IV abx. This would require him to come in daily to get new IV and then abx. Patient prefers not to do this if possible. He is not sure if he could get here everyday or if he would be compliant. P: Pending. Hopefully [facility] will be able to do CD assessment while patient hospitalized. Discharge Planning/Care Management CM Discharge Assessment Start: 01/01/18 13:42 Freq: Status: Active Protocol: Document 01/01/18 13:42 KJS (Rec: 01/01/18 13:58 KJS [id number]) Discharge Planning Assessment Assigned Warranty Clerk ARSH Pena Contact Information Asha (Mother) [phone] Advance Directives? No History Provided By Patient Has Patient been admitted in last 30 Yes days? Comment Patient left AMA on 12-30-17 and returned on 12-31-17. Comment Living situation unclear. Patient does indicate that he has friend whom is a non drug user that he can stay with upon discharge for short amount of time. Household Members none Type of transporation used prior to Relies on Others admit Independent with ADL's Yes Is patient alert and oriented? Yes Caregiver for Another No Comment None needed Patient/Family Preference Drug/Alcohol Rehab Comment Patient requesting to go to inpatient treatment outside of [facility]. Barriers to Discharge Yes Comment Likely home, resources will be offered for active heroin use ; other substances (?) R/o need for IV abx. DC w/ PICC is not a safe plan. Discharge Plan Drug Rehabilitation Referrals Initiated Other Additional Comment Referrals pending further assessment. Placed call to [facility] requesting CD assessment for inpatient substance abuse treatment. Awaiting response on whether or not they can do that while patient hospitalized. Whiteboard Updated in Patient Room with Yes name and ext. # of Warranty Clerk Review Status In Process Please Provide Date Initial DC 01/01/18 Assessment Was Performed Next Review Type Continued Stay Review
[2018-01-01 15:54] VITALS: BP 84/51; PULSE 67; RESP 20; TEMP 36.7; O2SAT 100
--- NOTE | 2018-01-01 19:18 | PM.PN.1 ---
Subjective Date Patient Seen: 01/01/18 Interval history: Patient without complaints. Cooperative with staff on IV antibiotic administration for septic knee. Exam Vital Signs (past 8 hours): - 01/01/18 12:00 01/01/18 15:54 Temperature 97.5 F L 98.0 F Pulse Rate 75 67 Respiratory Rate 16 20 Blood Pressure 103/46 L 84/51 L Pulse Oximetry 99 100 Oxygen Delivery Method Room Air Objective Labs Result Diagrams: 12/31/17 20:44 01/01/18 08:15 Labs: Laboratory Results - last 24 hr 12/31/17 12/31/17 12/31/17 19:50 20:44 20:44 WBC 8.8 RBC 4.92 Hgb 13.9 Hct 41.2 MCV 83.6 MCH 28.3 MCHC 33.8 RDW 16.7 H Plt Count 382 Neut % (Auto) 58.9 Lymph % (Auto) 28.9 [place] % (Auto) 8.9 Eos % (Auto) 2.6 Baso % (Auto) 0.7 Neut # (Auto) 5200 Sodium 141 Potassium 4.1 Chloride 101 Carbon Dioxide 22 BUN 25 H Creatinine 1.00 Estimated GFR > 60.0 BUN/Creatinine Ratio 25.0 H Glucose 92 Calcium 10.4 H Urine Opiates Screen Positive H Ur Oxycodone Screen Positive H Urine Methadone Screen Positive H Ur Barbiturates Screen Negative U Tricyclic Antidepress Negative Ur Phencyclidine Scrn Negative Ur Amphetamines Screen Positive H U Methamphetamines Scrn Positive H Ur MDMA Scrn (Ecstasy) Negative U Benzodiazepines Scrn Positive H Urine Cocaine Screen Negative U Marijuana (THC) Screen Negative 01/01/18 08:15 WBC RBC Hgb Hct MCV MCH MCHC RDW Plt Count Neut % (Auto) Lymph % (Auto) [place] % (Auto) Eos % (Auto) Baso % (Auto) Neut # (Auto) Sodium 143 Potassium 3.9 Chloride 104 Carbon Dioxide 23 BUN 24 H Creatinine 0.80 Estimated GFR > 60.0 BUN/Creatinine Ratio 30.0 H Glucose 84 Calcium 9.6 Urine Opiates Screen Ur Oxycodone Screen Urine Methadone Screen Ur Barbiturates Screen U Tricyclic Antidepress Ur Phencyclidine Scrn Ur Amphetamines Screen U Methamphetamines Scrn Ur MDMA Scrn (Ecstasy) U Benzodiazepines Scrn Urine Cocaine Screen U Marijuana (THC) Screen Assessment & Plan Plan: Assessment/Plan Narrative: Pyogenic Arthritis s/p arthrotomy of the right knee w/ I&D (12/07). Aspirate cx + MRSA. - Daptomycin 600 mg IV Q24H (stop date 01/08/2018) - full weight-bearing and ROM as tolerated Hypercalcemia - resolved. Hep-Lock IV. Heroin Dependence with symptoms of withdrawal UDS positive for opiates, oxycodone, methadone, amphetamines, methamphetamines, and benzodiazepines + Tachycardia and HTN. No abdominal pain, N/V/D. - discontinue clonidine 0.1 mg Q6H since not having withdrawal at this time Anxiety - buspirone 10 mg BID - clonazepam 1 mg PO BID
[2018-01-01 19:28] VITALS: BP 104/55; PULSE 72; RESP 16; TEMP 36.2; O2SAT 99
[2018-01-01] MEDS: MELATONIN 3 MG TABLET 6 MG PO (20:12)
[2018-01-02 01:59] VITALS: BP 94/55; PULSE 72; RESP 16; TEMP 36.4; O2SAT 98
--- NOTE | 2018-01-02 02:05 | PC.NURSE ---
Addendum entered by Shaneka Mayer R.N. 01/02/18 06:22: Has slept most of night. BP remains low at 95/45 this morning. Original Note: Patient has been sleeping and now wakened for vitals/assessment. Very drowsy so minimally responsive. Breath sounds CTA with RA sat of 98%. HRR. BP low at 94/55. Denies nausea. BT present and abdomen is soft. No urinary problems/concerns. Independent with mobility. Denies pain. Right knee incisions healed but knee still looks slightly swollen. On contact isolation due to MRSA in synovial fluid.
[2018-01-02 05:37] VITALS: BP 95/45; PULSE 69; RESP 16; TEMP 36.7; O2SAT 98
[2018-01-02 08:09] VITALS: BP 101/58; PULSE 74; RESP 15; TEMP 37; O2SAT 98
[2018-01-02] MEDS: BUSPIRONE 5 MG TABLET 10 MG PO ×2 (10:32→22:40)
[2018-01-02] MEDS: clonazePAM 0.5 MG TABLET 1 MG PO ×2 (10:33→22:40)
[2018-01-02] MEDS: ENOXAPARIN 40 MG/0.4 ML SYRINGE SUBCUT (10:35)
[2018-01-02] MEDS: SODIUM CHLORIDE 0.9% FLUSH 10 ML IV ×2 (10:35→22:41)
[2018-01-02 12:30] VITALS: BP 110/62; PULSE 66; RESP 17; TEMP 36.8; O2SAT 97
[2018-01-02 13:09] VITALS: BMI 22.2
[2018-01-02] MEDS: METHADONE 10 MG TABLET PO ×2 (16:43→22:41)
--- NOTE | 2018-01-02 17:51 | PM.PN.1 ---
Subjective Date Patient Seen: 01/02/18 Interval history: Patient became increasingly restless this afternoon. He is not sure if he is withdrawing or just anxious. He also feels he has been depressed. His nurse and myself had nice conversation with him regarding his anxiety, possible withdrawal and depression. I had ordered methadone as needed as well as plans to start on circ well while in hospital and fluoxetine more long-term. In addition he has been getting clonazepam and buspirone. However, shortly after our conversation patient walked out of his room and out of the hospital to nearby gas station to get bed bug exterminator for smoke. His nurse was able to find him outside having a smoked and escorted him back to the room. Exam Vital Signs (past 8 hours): - 01/02/18 12:30 Temperature 98.2 F Pulse Rate 66 Respiratory Rate 17 Blood Pressure 110/62 Pulse Oximetry 97 Oxygen Delivery Method Room Air Oxygen Flow Rate 0 Objective Labs Result Diagrams: 12/31/17 20:44 01/01/18 08:15 Assessment & Plan Plan: Assessment/Plan Narrative: Pyogenic Arthritis s/p arthrotomy of the right knee w/ I&D (12/07). Aspirate cx + MRSA. - Daptomycin 600 mg IV Q24H (stop date 01/08/2018) - full weight-bearing and ROM as tolerated Hypercalcemia - resolved. Hep-Lock IV. Heroin Dependence with symptoms of withdrawal UDS positive for opiates, oxycodone, methadone, amphetamines, methamphetamines, and benzodiazepines -methadone 10 mg twice daily as needed for possible withdrawal but should not be discharged on methadone Anxiety, depression, without history of manic type symptoms -Seroquel 25 mg b.i.d. to facilitate care in hospital. -start fluoxetine 10 mg daily. - continue buspirone 10 mg BID - continue clonazepam 1 mg PO BID although should not be discharged on benzos As noted, [place] [facility] [place] then again [place] [facility] on this admission but we were able to escort him back. Patient understands that if he leaves again he will not be read admitted unless there is an acute need, but not simply for continuation of IV antibiotic management.
--- NOTE | 2018-01-02 17:54 | P.PN_ITS ---
Subjective Date Patient Seen: 01/02/18 Interval history: Patient became increasingly restless this afternoon. He is not sure if he is withdrawing or just anxious. He also feels he has been depressed. His nurse and myself had nice conversation with him regarding his anxiety, possible withdrawal and depression. I had ordered methadone as needed as well as plans to start on circ well while in hospital and fluoxetine more long-term. In addition he has been getting clonazepam and buspirone. However, shortly after our conversation patient walked out of his room and out of the hospital to nearby gas station to get oil sprayer for smoke. His nurse was able to find him outside having a smoked and escorted him back to the room. Exam Vital Signs (past 8 hours): - 01/02/18 12:30 Temperature 98.2 F Pulse Rate 66 Respiratory Rate 17 Blood Pressure 110/62 Pulse Oximetry 97 Oxygen Delivery Method Room Air Oxygen Flow Rate 0 Objective Labs Result Diagrams: 12/31/17 20:44 01/01/18 08:15 Assessment & Plan Plan: Assessment/Plan Narrative: Pyogenic Arthritis s/p arthrotomy of the right knee w/ I&D (12/07). Aspirate cx + MRSA. - Daptomycin 600 mg IV Q24H (stop date 01/08/2018) - full weight-bearing and ROM as tolerated Hypercalcemia - resolved. Hep-Lock IV. Heroin Dependence with symptoms of withdrawal UDS positive for opiates, oxycodone, methadone, amphetamines, methamphetamines, and benzodiazepines -methadone 10 mg twice daily as needed for possible withdrawal but should not be discharged on methadone Anxiety, depression, without history of manic type symptoms -Seroquel 25 mg b.i.d. to facilitate care in hospital. -start fluoxetine 10 mg daily. - continue buspirone 10 mg BID - continue clonazepam 1 mg PO BID although should not be discharged on benzos As noted, patient left [facility] on last admission and then again left [facility] on this admission but we were able to escort him back. Patient understands that if he leaves again he will not be read admitted unless there is an acute need, but not simply for continuation of IV antibiotic management.
[2018-01-02 20:36] VITALS: BP 114/90; PULSE 111; RESP 18; TEMP 37.1; O2SAT 98
[2018-01-02] MEDS: MELATONIN 3 MG TABLET 6 MG PO (22:40)
[2018-01-02] MEDS: QUETIAPINE 25 MG TABLET PO (22:40)
[2018-01-03 00:40] VITALS: BP 99/55; PULSE 72; RESP 17; TEMP 36.7; O2SAT 97
--- NOTE | 2018-01-03 05:56 | PC.NURSE ---
Pt slept all night. denied pain, nausea, or sob. kept on contact prec. call light in reach. bed alarm active.
[2018-01-03] MEDS: clonazePAM 0.5 MG TABLET 1 MG PO ×2 (11:04→20:43)
[2018-01-03] MEDS: SODIUM CHLORIDE 0.9% FLUSH 10 ML IV ×3 (11:04→20:49)
[2018-01-03] MEDS: ENOXAPARIN 40 MG/0.4 ML SYRINGE SUBCUT (11:04)
[2018-01-03] MEDS: QUETIAPINE 25 MG TABLET PO ×2 (11:05→20:44)
[2018-01-03] MEDS: BUSPIRONE 5 MG TABLET 10 MG PO ×2 (11:05→20:44)
[2018-01-03] MEDS: FLUoxetine 10 MG CAPSULE PO (11:05)
[2018-01-03 12:00] VITALS: BP 102/57; PULSE 67; RESP 15; TEMP 36.7; O2SAT 99
[2018-01-03 17:00] VITALS: BP 106/66; PULSE 76; RESP 18; TEMP 36.6; O2SAT 97
--- NOTE | 2018-01-03 19:03 | PM.PN.1 ---
Subjective Date Patient Seen: 01/03/18 Interval history: Patient has been less anxious and more cooperative since yesterday. He was started on low-dose Seroquel and fluoxetine. Exam Vital Signs (past 8 hours): - 01/03/18 12:00 01/03/18 17:00 Temperature 98.1 F 97.8 F Pulse Rate 67 76 Respiratory Rate 15 18 Blood Pressure 102/57 L 106/66 Pulse Oximetry 99 97 Oxygen Delivery Method Room Air Oxygen Flow Rate 0 Objective Labs Result Diagrams: 12/31/17 20:44 01/01/18 08:15 Assessment & Plan Plan: Assessment/Plan Narrative: Pyogenic Arthritis s/p arthrotomy of the right knee w/ I&D (12/07). Aspirate cx + MRSA. - Daptomycin 600 mg IV Q24H (stop date 01/08/2018) - full weight-bearing and ROM as tolerated Hypercalcemia - resolved. Hep-Lock IV. Heroin Dependence with symptoms of withdrawal UDS positive for opiates, oxycodone, methadone, amphetamines, methamphetamines, and benzodiazepines -methadone 10 mg twice daily as needed for possible withdrawal but should not be discharged on methadone Anxiety, depression, without history of manic type symptoms -Seroquel 25 mg b.i.d. to facilitate care in hospital. -started fluoxetine 10 mg daily. - continue buspirone 10 mg BID - continue clonazepam 1 mg PO BID although should not be discharged on benzos As noted, patient left [facility] [place] last admission and then again left [facility] on this admission on 01/02/2018 but we were able to escort him back. Patient understands that if he leaves again he will not be read admitted unless there is an acute need, but not simply for continuation of IV antibiotic management.
[2018-01-03] MEDS: METHADONE 10 MG TABLET PO (20:43)
[2018-01-03] MEDS: MELATONIN 3 MG TABLET 6 MG PO (20:44)
[2018-01-03 23:40] VITALS: BP 97/55; PULSE 60; RESP 16; TEMP 36.4; O2SAT 98
[2018-01-04 08:00] VITALS: BP 92/53; PULSE 65; RESP 15; TEMP 36.7; O2SAT 99
[2018-01-04] MEDS: QUETIAPINE 25 MG TABLET PO ×2 (09:20→22:43)
[2018-01-04] MEDS: BUSPIRONE 5 MG TABLET 10 MG PO ×2 (09:20→22:42)
[2018-01-04] MEDS: FLUoxetine 10 MG CAPSULE PO (09:20)
[2018-01-04] MEDS: clonazePAM 0.5 MG TABLET 1 MG PO ×2 (09:20→22:42)
[2018-01-04] MEDS: ENOXAPARIN 40 MG/0.4 ML SYRINGE SUBCUT (09:21)
[2018-01-04] MEDS: SODIUM CHLORIDE 0.9% FLUSH 10 ML IV ×2 (09:21→22:43)
--- NOTE | 2018-01-04 10:06 | PM.PN.1 ---
Subjective Date Patient Seen: 01/04/18 Time Patient Seen: 10:07 Interval history: No new complaints today Exam Vital Signs (past 8 hours): - 01/04/18 08:00 Temperature 98.0 F Pulse Rate 65 Respiratory Rate 15 Blood Pressure 92/53 L Pulse Oximetry 99 Oxygen Delivery Method Room Air Oxygen Flow Rate 0 Narrative Exam Narrative: Resting comfortably no acute distress HEENT exam unremarkable Lungs clear Heart regular rhythm Abdomen soft nontender Neuro exam unremarkable Objective Labs Result Diagrams: 12/31/17 20:44 01/01/18 08:15 Assessment & Plan Plan: Assessment/Plan Narrative: Assessment/Plan Narrative: Pyogenic Arthritis s/p arthrotomy of the right knee w/ I&D (12/07). Aspirate cx + MRSA. - Daptomycin 600 mg IV Q24H (stop date 01/08/2018) - full weight-bearing and ROM as tolerated Hypercalcemia - resolved. Hep-Lock IV. Heroin Dependence with symptoms of withdrawal UDS positive for opiates, oxycodone, methadone, amphetamines, methamphetamines, and benzodiazepines -methadone 10 mg twice daily as needed for possible withdrawal but should not be discharged on methadone Anxiety, depression, without history of manic type symptoms -Seroquel 25 mg b.i.d. to facilitate care in hospital. -started fluoxetine 10 mg daily. - continue buspirone 10 mg BID - continue clonazepam 1 mg PO BID although should not be discharged on benzos As noted, [place] [facility] [place] and then [facility] on this admission on 01/02/2018 but we were able to escort him back. Patient understands that if he leaves again he will not be readmitted and will need to find care elsewhere.
--- NOTE | 2018-01-04 15:11 | CM.DPC ---
Social Work Note/DCP: Worked on DCP throughout the day. Spoke with: Suma Jenkins w/[facility] P# [phone], she reiterated to this NEURODIAGNOSTIC TECH that [facility] does not have a contract in [facility] for inpt or outpt D/A treatment and it needs to go through his Medicaid and [facility] P# [phone] for authorization. Suma informed this NEURODIAGNOSTIC TECH that pt's Medicaid/provider one number is currently inactive as of today, it is not terminated. Pt needs to call Customer service at P#[phone] to give them updated information needed to prevent terminated benefits. Spoke w/[facility]; rep explained they do not do inpt CD assessments anywhere other than [facility] (he said the [place] area). Then placed call to [facility] to inquire about inpt CD assessment? Is one required before inpt CD treatment? Spoke w/Avila Astorga, he explained that a CD assessment needs to be completed by a CDP or CDPT before any inpt or outpt CD treatment is secured. Explained that [facility] does not come to [facility] and Avila did not know if [place], [place], or [facility] visits [facility] but he agreed to find out for this NEURODIAGNOSTIC TECH. Avila then identified pt's inactive status in the system and suggested step 1 should be that pt calls the [facility] (this differs from [facility]'s instructions) P#[phone]. Also placed calls to [facility], they do not take Medicaid [facility] in [facility] and not accepting referrals [facility] P#[phone], month 1/2 wait list Recovery [facility] P#[phone] Inpt CD treatment facilities that accept Medicaid, rep said he would email a list and haven't gotten this yet Met w/pt; He was sleeping on the window bench in . He explains he still wants inpt treatment. Updated on this NEURODIAGNOSTIC TECH's efforts and explained he needed to call [employer] [facility] to make sure Medicaid was not terminated. Returned to pt's at 1500, he said he had been sleeping all day and did not place call. He would first thing tomorrow morning. Following. ARSH Parkinson
[2018-01-04 15:45] VITALS: BP 99/59; PULSE 68; RESP 20; TEMP 36.6; O2SAT 98
[2018-01-04] MEDS: MELATONIN 3 MG TABLET 6 MG PO (22:43)
[2018-01-04] MEDS: METHADONE 10 MG TABLET PO (22:44)
[2018-01-05] VITALS: BP 109/59; PULSE 68; RESP 16; TEMP 36.6; O2SAT 97
[2018-01-05 05:52] VITALS: BP 101/62; PULSE 67; RESP 16; TEMP 36.6; O2SAT 98
[2018-01-05 08:00] VITALS: BP 122/57; PULSE 71; RESP 16; TEMP 36.4; O2SAT 98
[2018-01-05] MEDS: ENOXAPARIN 40 MG/0.4 ML SYRINGE SUBCUT (10:08)
[2018-01-05] MEDS: BUSPIRONE 5 MG TABLET 10 MG PO (10:09)
[2018-01-05] MEDS: QUETIAPINE 25 MG TABLET PO (10:09)
[2018-01-05] MEDS: SODIUM CHLORIDE 0.9% FLUSH 10 ML IV (10:09)
[2018-01-05] MEDS: clonazePAM 0.5 MG TABLET 1 MG PO (10:09)
[2018-01-05] MEDS: FLUoxetine 10 MG CAPSULE PO (10:09)
--- NOTE | 2018-01-05 11:48 | P.PN_ITS ---
Subjective Date Patient Seen: 01/05/18 Time Patient Seen: 11:47 Interval history: He has been up around in the room no new complaints Exam Vital Signs (past 8 hours): - 01/05/18 05:52 01/05/18 08:00 Temperature 97.9 F 97.6 F Pulse Rate 67 71 Respiratory Rate 16 16 Blood Pressure 101/62 122/57 L Pulse Oximetry 98 98 Oxygen Delivery Method Room Air Oxygen Flow Rate 0 Narrative Exam Narrative: No change on exam Objective Labs Result Diagrams: 12/31/17 20:44 01/01/18 08:15 Assessment & Plan Plan: Assessment/Plan Narrative: Pyogenic Arthritis s/p arthrotomy of the right knee w/ I&D (12/07). Aspirate cx + MRSA. - Daptomycin 600 mg IV Q24H (stop date 01/08/2018) - full weight-bearing and ROM as tolerated Hypercalcemia - resolved. Hep-Lock IV. Heroin Dependence with symptoms of withdrawal UDS positive for opiates, oxycodone, methadone, amphetamines, methamphetamines, and benzodiazepines -methadone 10 mg twice daily as needed for possible withdrawal but should not be discharged on methadone Anxiety, depression, without history of manic type symptoms -Seroquel 25 mg b.i.d. to facilitate care in hospital. -started fluoxetine 10 mg daily. - continue buspirone 10 mg BID - continue clonazepam 1 mg PO BID although should not be discharged on benzos As noted, patient left [facility] [place] last admission and then again left [facility] on this admission on 01/02/2018 but we were able to escort him back. Patient understands that if he leaves again he will not be readmitted and will need to find care elsewhere.
--- NOTE | 2018-01-05 12:18 | PC.NURSE ---
Addendum entered by Heather Avalos R.N. 01/05/18 12:32: Pt escorted out by APPLICATION ARCHITECT, pt had all belongings. Original Note: Pt showered, this RN notified by APPLICATION ARCHITECT that the bathroom smelled like cigarettes. This RN asked patient if he had been smoking in the bathroom, patient stated yes I have, I needed a cigarette. Patient agreeable to having this RN go through his belongings, two packs of cigarettes found and removed from room. Patient then requested to speak to this RN, patient stated I want to sign out of this place, I'm tired of being here and tired of the rules. Dr Bruno notified, patient signed AMA form. IV to right forearm removed. Cigarettes returned to patient.
--- NOTE | 2018-01-05 14:30 | CM.DPC ---
AMA Met w/pt 10 minutes before he left AMA. Transferred a call into pt rm from the [facility]. 5 minutes later AUSTIN Stallworth updated this P 3 ARMAMENT/ORDNANCE IMA TECHNICIAN that pt was caught smoking in his bathroom and wanted to leave AMA. He signed ppk. This P 3 ARMAMENT/ORDNANCE IMA TECHNICIAN requested that RN Coordinator Gurpreet mckeon by as RN and DRY PRESS OPERATOR HELPER were in rm and taking out pt's PICC line. Pt left calmly. JW
--- NOTE | 2018-01-06 09:18 | PM.DS.1 ---
History of Present Illness Date Patient Seen: 01/05/18 Time Patient Seen: 13:18 Chief complaint: Left AMA from Acute Care last night, wants PIC rem Narrative: The patient is a 32-year-old male with PMH of IV substance abuse, anxiety, depression, and tobacco dependence. Patient left the hospital prematurely / AMA on 12/31 at 4:30 am. He is returning back to continue his empiric therapy. Patient notes that he left prematurely because he was trying to help a friend. While away he does admit to doing heroin to subdue his anxiety. Patient was recently hospitalized from 12/07 through 12/31 for pyogenic arthritis. He underwent arthrotomy of the right knee with irrigation and debridement on 12/[address] Gagnon. Aspirate cultures were positive for MRSA. POD 25 (on 01/01). Initially treated with Zyvox and Vancomycin. Per collaboration with Infectious Disease, recommendations were made for a 4 week course with Daptomycin (started on 12/11, anticipated end date 01/08/18), which is then to followed by a 2 week course of high dose Bactrim. Extended treatment with Zyvox was discouraged due to risk of thrombocytopenia. Patient was unable to achieve therapeutic levels with Vancomycin. In regard to his right knee... Denies pain, edema, and erythema. Reports anxiety and depression. Denies active thoughts of harm's for ideation toward self of others. Denies fever/chills, chest pain, palpitations, dizziness / lightheadedness, dyspnea, abdominal pain, nausea, vomiting, and diarrhea. Patient's PICC line was removed in the ED. At present time IV access in the form of peripheral IV catheter. Discharge Providers Date of admission: 12/31/17 21:30 Discharge provider: Cy Bruno MD Discharge Date: 01/05/18 Summary Discharge Diagnosis: One. Pyogenic arthritis 2. Heroin dependence with withdrawal 3. Anxiety Hospital Course: Patient left against medical advice. He was smoking in the bathroom and was asked not to he said he was sick of the rules and left he was instructed that he will not be allowed back in the hospital under any circumstances. He was scheduled to have the IV antibiotic until January 08 so he has about 3 days short. He was treated for the septic arthritis of his knee. He has actually had a couple of episodes where he has left the hospital against medical advice and this 1 appears to be the final episode.. Status at Discharge Functional status at discharge: independent ambulation Overall status at discharge: patient is not back to baseline Time Spent with Patient Less than 30 minutes Exam Vital Signs (past 8 hours): Oxygen Delivery Method Room Air Oxygen Flow Rate 0 Objective Labs Result Diagrams: 12/31/17 20:44 01/01/18 08:15 Discharge Plan Discharge Plan Discharge Problem: Septic joint of right knee joint Patient Disposition: Left Against Medical Advice Discharge Med Rec/Prescriptions Prescriptions: No Action buspirone 10 mg Tablet 10 mg PO BID RF: 0 methadone 10 mg Tablet 10 mg PO DAILY RF: 0 clonazepam 1 mg Tablet 1 mg PO BID RF: 0 docusate sodium 100 mg Capsule 100 mg PO BID RF: 0 enoxaparin [Lovenox] 40 mg/0.4 mL Syringe 40 mg SUBCUT DAILY RF: 0 daptomycin 500 mg Recon Soln 600 mg IV DAILY RF: 0 Discharge Data Attending Provider: Cornelius Dalton Admit Date/Time: 12/31/17 21:30 Discharges patient from system. Discharge Date/Time: 01/05/18 12:32
== END 2018-01-05 12:32 | disposition left against medical advice (07) | DRG 861 ==
LOC: ED 21:18 → AC 21:31
PROVIDERS: Admitting Provider Nurse Practitioner Gerontology; Emergency Provider Emergency Medicine; Visit Provider Nurse Practitioner Gerontology
DX: Z53.21 Procedure and treatment not carried out due to patient leaving prior to being seen by health care provider (principal)
CPT/HCPCS: 36415; 36591; 80048; 80305; 85025; 99282; J0878; J1650